=== PATIENT | male | born 1985 | race Caucasian/White ===

== ENCOUNTER 2023-12-10 07:40 | Outpatient (OUT) | payer BC, SELFPAY ==
--- NOTE | 2023-12-10 07:49 | FL_ITS ---
[address] [address] Patient Name: ISIDRA LERMA MRN: [id number] date: 1985 Sex: M [place] [facility] [place] [facility] [facility] Accession/Order Number: [id number] Exam Date: 12/10/2023 08:05 Report Date: 12/10/2023 10:12 At the request of: ARSLAN DAVIS Procedure: FL cineradiography EXAMINATION: FL upper GI w air, FL small bowel, FL cineradiography HISTORY: Hiatal Hernia K44.9 COMPARISON: No relevant comparison available. TECHNIQUE: Upper GI and small bowel series was performed in the usual manner. Standard level fluoroscopic mode of operation utilized. FINDINGS: ESOPHAGUS: Multiples episodes of prominent gastroesophageal reflux extending to the thoracic inlet. No appreciable stricture, abnormal dilation, or mucosal irregularity. STOMACH: No obstruction, mass, or ulceration. Normal motility. DUODENUM: No ulceration or diverticulum. JEJUNUM: Normal motility. No obstruction or visible lesion. ILEUM: Normal motility. No obstruction or visible lesion. OTHER: Negative. FL/FL cineradiography IMPRESSION: 1. Prominent gastroesophageal reflux without appreciable damage to the esophagus, mass, or stricture. 2. Unremarkable stomach. 3. Unremarkable small bowel. Electronically authenticated by: JUJU OWENS Date: 12/10/2023 10:12
--- NOTE | 2023-12-10 07:49 | FL_ITS ---
[address] [address] Patient Name: ISIDRA LERMA MRN: [id number] date: 1985 Sex: M Assigned Patient [place]: [place] Location: [place] Accession/Order Number: [id number] Exam Date: 12/10/2023 08:05 Report Date: 12/10/2023 10:12 At the request of: ARSLAN DAVIS Procedure: FL upper GI w air EXAMINATION: FL upper GI w air, FL small bowel, FL cineradiography HISTORY: Hiatal Hernia K44.9 COMPARISON: No relevant comparison available. TECHNIQUE: Upper GI and small bowel series was performed in the usual manner. Standard level fluoroscopic mode of operation utilized. FINDINGS: ESOPHAGUS: Multiples episodes of prominent gastroesophageal reflux extending to the thoracic inlet. No appreciable stricture, abnormal dilation, or mucosal irregularity. STOMACH: No obstruction, mass, or ulceration. Normal motility. DUODENUM: No ulceration or diverticulum. JEJUNUM: Normal motility. No obstruction or visible lesion. ILEUM: Normal motility. No obstruction or visible lesion. OTHER: Negative. FL/FL upper GI w air IMPRESSION: 1. Prominent gastroesophageal reflux without appreciable damage to the esophagus, mass, or stricture. 2. Unremarkable stomach. 3. Unremarkable small bowel. Electronically authenticated by: JUJU OWENS Date: 12/10/2023 10:12
--- NOTE | 2023-12-10 08:27 | FL_ITS ---
The [address] [address] Patient Name: ISIDRA LERMA MRN: [id number] date: 1985 Sex: M [place]igned [place]: [place]: [place] Accession/Order Number: [id number] Exam Date: 12/10/2023 08:05 Report Date: 12/10/2023 10:12 At the request of: ARSLAN DAVIS Procedure: FL small bowel EXAMINATION: FL upper GI w air, FL small bowel, FL cineradiography HISTORY: Hiatal Hernia K44.9 COMPARISON: No relevant comparison available. TECHNIQUE: Upper GI and small bowel series was performed in the usual manner. Standard level fluoroscopic mode of operation utilized. FINDINGS: ESOPHAGUS: Multiples episodes of prominent gastroesophageal reflux extending to the thoracic inlet. No appreciable stricture, abnormal dilation, or mucosal irregularity. STOMACH: No obstruction, mass, or ulceration. Normal motility. DUODENUM: No ulceration or diverticulum. JEJUNUM: Normal motility. No obstruction or visible lesion. ILEUM: Normal motility. No obstruction or visible lesion. OTHER: Negative. FL/FL small bowel IMPRESSION: 1. Prominent gastroesophageal reflux without appreciable damage to the esophagus, mass, or stricture. 2. Unremarkable stomach. 3. Unremarkable small bowel. Electronically authenticated by: JUJU OWENS Date: 12/10/2023 10:12
== END 2023-12-10 07:41 | disposition home or self-care (01) ==
LOC: FL 07:44
PROVIDERS: PCP Family Medicine; Visit Provider Surgery
DX: K44.9 Diaphragmatic hernia without obstruction or gangrene (principal); R13.10 Dysphagia, unspecified; K21.9 Gastro-esophageal reflux disease without esophagitis
CPT/HCPCS: 74246; 74250; 76120

== ENCOUNTER 2023-12-10 12:28 | Outpatient (OUT) | payer BC, SELFPAY | END 2023-12-10 12:29 | disposition home or self-care (01) | LOC: PST 12:28 | PROVIDERS: PCP Family Medicine; Visit Provider Surgery | DX: Z01.818 Encounter for other preprocedural examination (principal); R13.10 Dysphagia, unspecified ==

== ENCOUNTER 2023-12-18 07:45 | Day surgery (SDC) | payer BC, SELFPAY ==
--- OUTSIDE RECORDS SUMMARY | 2023-12-18 07:48 | XMS_ITS | CCD ---
Author Organization [facility] Care Team Providers Care Application Release Manager Name Role Phone Sterling Marquez Unavailable DR RED ROBLES Primary Care Unavailable FAWWASurjit, VALLE H Admitting Unavailable SABA KATE Consulting Unavailable FAWSHAIKH Josh FAITH Attending Unavailable FAPAPI SEGUNDOIKH H Consulting Unavailable PAPI NAVARROIKH H Attending Unavailable Wilber Canela Consulting Unavailable DR RED ROBLES Primary Care Unavailable FAWWASurjit, VALLE H Admitting Unavailable FARATNA, VALLE H Consulting Unavailable DIETER ALVAREZ Attending Unavailable Red Robles MD Primary Care Provider [phone] RED ROBLES Attending Unavailable ARSLAN DAIVS Attending Unavailable Allergies Allergy Classification Reported Allergen(s) Allergy Type Date of Onset Reaction(s) Facility (2 sources) Codeine Drug Allergy 8 nausea, Nausea And Vomiting [facility] Work Phone: (1 source) Codeine Drug Allergy [facility] Repository Medications Current Medications Medication Drug Class(es) Dates Sig (Normalized) Sig (Original) acetaminophen 325 mg / HYDROcodone bitartrate 5 mg oral tablet (1 source) Opioid Agonist Start: 12-02-2020 take 0.5-1 tablets by mouth once daily as needed HYDROcodone-Acetamin ophen 5-325 MG 1/2 - 1 tablet Orally once daily as needed for 30 days G89.29 Chronic pain Nov, Active cholecalciferol 0.05 mg oral capsule (1 source) Vitamin D take 1 capsule by mouth once daily cholecalciferol (Vitamin D-3) 50 MCG (1999) capsule Take 1 capsule by mouth 1 (one) time each day at the same time. 0 Active ibuprofen 400 mg oral tablet (1 source) Nonsteroidal Anti-inflammatory Drug take 1 tablet by mouth three times daily at mealtime as needed Ibuprofen 400 MG 1 tablet with food or milk as needed Orally Three times a day Active omeprazole 10 mg delayed release oral capsule (1 source) Proton Pump Inhibitor take 1 capsule by mouth once daily Omeprazole 10 MG 1 capsule 30 minutes before morning meal Orally Once a day Active pantoprazole 40 mg delayed release oral tablet (1 source) Proton Pump Inhibitor take 1 tablet by mouth once daily pantoprazole (ProtoNix) 40 MG EC tablet Take 40 mg by mouth 1 (one) time each day at the same time. 0 Active Problems Active Problems Problem Classification Problem Date Documented Date Episodic/Chronic Disorders of lipid metabolism (1 source) Hyperlipidemia; Translations: [Hyperlipidemia, unspecified] Onset: 12-18-2007 02-06-2023 Chronic Nervous system congenital anomalies (6 sources) Neurofibromatosis, unspecified; Translations: [Neurofibromatosis] Onset: 05-30-2009 Chronic Other ear and sense organ disorders (1 source) Bilateral hearing loss; Translations: [Sensorineural hearing loss, unilateral, left ear, with restricted hearing on the contralateral side] Onset: 02-06-2023 02-06-2023 Chronic Other ear and sense organ disorders (1 source) Bilateral tinnitus; Translations: [Tinnitus, bilateral] Onset: 02-06-2023 02-06-2023 Episodic Other nervous system disorders (2 sources) Chronic pain; Translations: [Other chronic pain] Onset: 02-06-2023 Resolved: 02-06-2023 02-06-2023 Chronic Other nervous system disorders (1 source) Other chronic pain Onset: 01-13-2021 Resolved: 01-13-2021 Chronic Other screening for suspected conditions (not mental disorders or infectious disease) (4 sources) Other abnormal findings on diagnostic imaging of central nervous system; Translations: [OTH 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] Onset: 04-03-2022 Episodic Spondylosis; intervertebral disc disorders; other back problems (4 sources) Solitary sacroiliitis; Translations: [Sacroiliitis, not elsewhere classified] Onset: 01-13-2021 Resolved: 01-13-2021 Chronic Sprains and strains (1 source) Unspecified sprain of right wrist, initial encounter; Translations: [Unspecified sprain of right wrist, initial encounter] Onset: 01-13-2023 Episodic Past or Other Problems Problem Classification Problem Date Documented Da te Episodic/Chronic Other aftercare (1 source) Drug therapy finding; Translations: [Other fdc (current) drug therapy] Onset: 02-21-2019 02-06-2023 Episodic Other non-traumatic joint disorders (1 source) Pain in left shoulder Onset: 01-13-2021 Resolved: 01-13-2021 Episodic Spondylosis; intervertebral disc disorders; other back problems (1 source) Low back pain; Translations: [Low back pain] Onset: 12-18-2007 02-06-2023 Episodic Substance-related disorders (1 source) Narcotic drug user; Translations: [Opioid use, unspecified, uncomplicated] Onset: 04-10-2017 02-06-2023 Episodic Results Test Name Value Interpretation Reference Range Facil ity XR ELBOW RIGHT (MIN 3 VIEWS) on 01-13-2023 XR ELBOW RIGHT (MIN 3 VIEWS) EXAM: XR RADIUS ULNA RIGHT (2 VIEWS), XR ELBOW RIGHT (MIN 3 VIEWS), XR WRIST RIGHT (MIN 3 VIEWS) HISTORY: Pain right forearm began today when pushing and pulling on an object. COMPARISON: None. TECHNIQUE: AP and lateral views of the right radius and ulna, 3 views right wrist and 3 views of the left elbow are submitted for review. FINDINGS: Approximately 3 cm soft tissue density is seen protruding about the dorsal proximal right forearm, which may be related to to patient's reported neurofibromatosis, versus less likely hematoma, given history of recent trauma. No obvious acute fracture of the right forearm is seen. Evaluation of the right wrist and elbow also demonstrates no evidence for acute fracture. Joint alignment is normal. No significant soft tissue gas is seen. No radiopaque foreign body is seen within the visualized soft tissues to suggest retained foreign body. IMPRESSION: IMPRESSION: Approximately 3 cm soft tissue density is seen protruding about the dorsal proximal right forearm, which may be related to to patient's reported neurofibromatosis, versus less likely hematoma, given history of recent trauma. No acute fracture seen in the right wrist, elbow and forearm. Interpreted by: Kika Winkler MD Signed by: Kika Winkler MD 01/13/23 Final result Normal [facility] XR RADIUS ULNA RIGHT (2 VIEW S)on 01-13-2023 XR RADIUS ULNA RIGHT (2 VIEWS) EXAM: XR RADIUS ULNA RIGHT (2 VIEWS), XR ELBOW RIGHT (MIN 3 VIEWS), XR WRIST RIGHT (MIN 3 VIEWS) HISTORY: Pain right forearm began today when pushing and pulling on an object. COMPARISON: None. TECHNIQUE: AP and lateral views of the right radius and ulna, 3 views right wrist and 3 views of the left elbow are submitted for review. FINDINGS: Approximately 3 cm soft tissue density is seen protruding about the dorsal proximal right forearm, which may be related to to patient's reported neurofibromatosis, versus less likely hematoma, given history of recent trauma. No obvious acute fracture of the right forearm is seen. Evaluation of the right wrist and elbow also demonstrates no evidence for acute fracture. Joint alignment is normal. No significant soft tissue gas is seen. No radiopaque foreign body is seen within the visualized soft tissues to suggest retained foreign body. IMPRESSION: IMPRESSION: Approximately 3 cm soft tissue density is seen protruding about the dorsal proximal right forearm, which may be related to to patient's reported neurofibromatosis, versus less likely hematoma, given history of recent trauma. No acute fracture seen in the right wrist, elbow and forearm. Interpreted by: Kika Winkler MD Signed by: Kika Winkler MD 01/13/23 Final result Normal [facility] XR WRIST RIGHT (MIN 3 VIEWS) on 01-13-2023 XR WRIST RIGHT (MIN 3 VIEWS) EXAM: XR RADIUS ULNA RIGHT (2 VIEWS), XR ELBOW RIGHT (MIN 3 VIEWS), XR WRIST RIGHT (MIN 3 VIEWS) HISTORY: Pain right forearm began today when pushing and pulling on an object. COMPARISON: None. TECHNIQUE: AP and lateral views of the right radius and ulna, 3 views right wrist and 3 views of the left elbow are submitted for review. FINDINGS: Approximately 3 cm soft tissue density is seen protruding about the dorsal proximal right forearm, which may be related to to patient's reported neurofibromatosis, versus less likely hematoma, given history of recent trauma. No obvious acute fracture of the right forearm is seen. Evaluation of the right wrist and elbow also demonstrates no evidence for acute fracture. Joint alignment is normal. No significant soft tissue gas is seen. No radiopaque foreign body is seen within the visualized soft tissues to suggest retained foreign body. IMPRESSION: IMPRESSION: Approximately 3 cm soft tissue density is seen protruding about the dorsal proximal right forearm, which may be related to to patient's reported neurofibromatosis, versus less likely hematoma, given history of recent trauma. No acute fracture seen in the right wrist, elbow and forearm. Interpreted by: Kika Winkler MD Signed by: Kika Winkler MD 01/13/23 Final result Normal [facility] MRI ORBIT WO W CONon 27-2 023 MRI ORBIT WO W CON Begin Addendum #1 Addendum: Additional MRI images from 03/25/2010 have been uploaded. Addendum has been requested. The enhancing lesion in the anterior medial left frontal lobe was present on 03/25/2010, though has significantly enlarged on the current study on 04/03/2022. The lesion was previously very tiny and measured 1 to 2 mm in the AP and transverse dimension, compared to 8 mm on the current study. The masslike enlargement of the hypothalamus visualized on the current study was not definitively present or only very subtly present on the prior study from 03/25/2010. This is also a change compared to the prior study. Original Report EXAMINATION: MRI ORBIT WO W CON HISTORY: Imaging of central nervous system abnormal. Dizziness. History of neurofibromatosis. COMPARISON: MRI brain 03/27/2022. TECHNIQUE: Multiplanar, multisequence MRI images of the orbits were obtained without and with contrast. FINDINGS: Redemonstration of masslike enlargement of the hypothalamus extending into the posterior aspect of the optic chiasm. Please note that the entirety of the hypothalamus is not included in the [id number]-du-gldy on the coronal images. This masslike enlargement demonstrates isointense signal on T1 and T2, without contrast enhancement. Stable T2 hyperintense focus in the medial left frontal cortex and subcortical region, measuring up to 8 mm in the AP, 6 mm in the transverse, and 8 mm in the craniocaudal dimension with solid enhancement. No mass lesions in the orbits. Extraocular muscles are symmetric. The intraorbital and intracanalicular portions of the optic nerves appear symmetric. No pathologic enhancement in the remaining brain. No hydrocephalus, midline shift, or pathologic extra-axial fluid collections. IMPRESSION: 1. MRI of the orbits were obtained. Please note that the entirety of the optic chiasm and hypothalamus is not included in the sdrqz-ja-aeia on most of the sequences (coronal plane). 2. Redemonstration of masslike enlargement of the hypothalamus. No associated contrast enhancement. 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 3. Stable T2 hyperintense lesion within the anterior medial left frontal lobe. There is evidence for solid enhancement. This is concerning for glioma given history of neurofibromatosis. Normal [facility] MRI BRAIN WO CONon 3 MRI BRAIN WO CON EXAM: MRI BRAIN WO C ON HISTORY: Neurofibromatosis syndrome neurofibromatosis. Some hearing loss, dizziness claustrophobia COMPARISON: None. TECHNIQUE: Multiplanar multisequence MRI was obtained through the head without contrast FINDINGS: Motion artifact. The ventricles, sulci, and remaining CSF containing spaces maintain age-appropriate volume and symmetry. No hydrocephalus. No herniation. The ford matter/white matter differentiation is maintained. No acute infarct or acute intracranial hemorrhage. Prominence of the optic chiasm/the hypothalamus. The 7th and 8th cranial nerves appear normal.. Focal abnormal signal intensity is present within the hippocampi left frontal lobe. The central arterial flow voids and the flow voids of the major dural venous sinuses are maintained, indicative of patency. The pneumatized portions of the skull are clear. Multiple subcutaneous nodules are noted. IMPRESSION: 1. Masslike prominence at the optic chiasm/hypothalamus this is concerning for a glioma given history of neurofibromatosis. Consider follow-up MRI of the orbits with and without contrast. 2. Regions of increased signal intensity no subcutaneous nodules as can be seen with provided history of neurofibromatosis. Electronically authenticated by: DIETER SIDDIQUI Date: 2022-03-28 16:09 Normal [facility] MR head/brain wo/w conon MR head/brain wo/w con [facility] [place] [address] MRI Report Signed Patient: Doc Jonas MR#: [id number] : 1985 Acct:[id number] Age/Sex: 34 / M ADM Date: 06/03/20 Loc: MR Room: Type: [facility] Attending Dr: Victoriano Zapata DO Ordering Provider: Seamus Zapata DO Date of Service: 06/03/20 MR/MR head/brain wo/w con: Q85.01 Copies to: Seamus Zapata DO MRI BRAIN WITHOUT AND WITH INTRAVENOUS CONTRAST CLINICAL DATA: Follow-up neurofibromatosis. Chronic pain. COMPARISON: 03/24/2016 Multiecho, multiplanar imaging of the brain was performed before and after intravenous administration of 17 mL of ProHance. The ventricles are stable in size and position. There is redemonstration of an enhancing nodular area in the parasagittal left frontal lobe anterior to the genu of the corpus callosum (axial postcontrast image 127) measuring 7.5 x 5.6 mm in size. This is similar to the comparison. 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 In addition, there is subtle thickening of the medial temporal lobes, greater on the right with minor increased T2 and FLAIR signal, also stable. There are no developing areas of abnormal signal intensity or enhancement within the supra or infratentorial brain. There is no restricted diffusion to suggest a recent ischemic event. No extra-axial collections or mass effect are seen. No midline abnormalities are noted. The imaged paranasal sinuses are clear. MR/MR head/brain wo/w con IMPRESSION: STABLE MRI FINDINGS COMPATIBLE WITH THE HISTORY OF NEUROFIBROMATOSIS. Impression dictated by: Jackie Nichols M.D.06/09/2020 8:49 AM Dictation Location: [place] [address] Transcribed By: [facility] 06/09/20 0849 Dictated By: Jackie Nichols MD 06/08/202003 Signed By: 06/09/20 0849 [facility] XR pre/post mri xrayon 06-08 XR pre/post mri xray [facility] [place] [address] MRI Report Signed Patient: Doc Jonas MR#: [id number] : 1985 Acct:[id number] Age/Sex: 34 / M ADM Date: 06/03/20 Loc: MR Room: Type: [facility] Attending Dr: Victoriano Zapata DO Ordering Provider: Seamus Zapata DO Date of Service: 06/03/20 MR/MR lumbar spine wo/w con: Q85.01 ([id number]) XR/XR pre/post mri xray: PRE MRI OF THE LUMBAR Copies to: Seamus Zapata DO CLINICAL DATA: Back pain. Follow-up in patient with history of neurofibromatosis PRE-MRI LUMBAR SPINE - 2 views COMPARISON: None AP and lateral standing views were obtained. No acute fractures or displacement are seen. There is no disproportionate disc space narrowing. There is lower thoracic and upper lumbar endplate spurring. There is lower lumbar facet disease. The SI joints are intact. There are no paraspinal soft tissue abnormalities. MR/MR lumbar spine wo/w con IMPRESSION: MILD DEGENERATIVE CHANGES. NO ACUTE PLAIN FILM FINDINGS. MRI LUMBAR SPINE WITHOUT AND WITH INTRAVENOUS CONTRAST COMPARISON: 04/10/2011 Multiecho imaging in the axial and sagittal plane was performed before and after intravenous administration of 17 mL of ProHance. Alignment is maintained on the sagittal sequences. There are no acute compression fractures or bone marrow edema. The conus medullaris is within normal limits for caliber, position and signal intensity. Multiple enlarged nerve roots are visualized within the lumbar region and sacrum, similar to the prior. Appearance is compatible with the known history of neurofibromatosis. At T12-L1 through L2-3, the discs are normal height and signal intensity. No disc bulge or herniation is seen. There is no central or foraminal stenosis. At L3-4, the disc is normal height and signal intensity. There is slight facet disease, greater on the right. There is minor disc bulging toward the neural foramen where there is minimal inferior foraminal encroachment. No central stenosis is noted. At L4-5 there is slight disc desiccation. There is minor annular disc bulging. There is slight increased T2 and STIR signal at the annulus that could be a tear. There is mild facet and some ligamentous hypertrophy. There is subtle thecal sac effacement. There is mild to moderate left inferior foraminal encroachment. At the lumbosacral junction, there is no disc bulge or herniation. There is some facet disease. There is no stenosis. IMPRESSION: CONTINUED DISCOVERTEBRAL DEGENERATIVE CHANGES AT L4-5. NERVE ROOT ENLARGEMENT INVOLVING THE LUMBAR SPINE AND SACRUM COMPATIBLE WITH HISTORY OF NEUROFIBROMATOSIS. APPEARANCE IS SIMILAR TO THE PRIOR. Impression dictated by: Jackie Nichols M.D.06/09/2020 8:51 AM Dictation Location: [place] [address] Transcribed By: [facility] 06/09/2051 Dictated By: Jackie Nichols MD 06/08/202049 Signed By: 06/09/2051 [facility] Coding Summary.on 05-27-2019 Coding Summary. CODING DATE: 020 FINAL [facility] STATUS: Home (Routine DC) PAYOR: [place] ADMIT DX: REASON FOR VISIT DX: Z30.8 Encounter for other contraceptive management FINAL DX: PRINCIPAL: Z30.8 Encounter for other contraceptive management SECONDARY: PYMT PROC APC STAT DESCRIPTION DOCTOR NAME DATE NOTE: The code number assigned matches the documented diagnosis and / or procedure in the patient's chart. However, the narrative phrase printed from the coding software may appear abbreviated, or result in slightly different terminology. Coded By: Candis Le CphT Date Saved: 05/27/2019 01:37 pm Normal [facility] Semen Analysis PostVason Yvette/Transport Prob No Problems Normal [facility] Comment on above: Performed By: #### 2 [id number] #### [facility] [address] [place] [address] Other Comment: Order Added by Discern Expert. Collect. Meth Masturbation Normal [facility] Comment on above: Performed By: #### 2 [id number], [id number] #### [facility] [address] [place] [address] Other Comment: Order Added by Discern Expert. Days Abstained 1 day(s) Low 2-5 [facility] Comment on above: Performed By: #### 2 [id number], [id number] #### [facility] [address] [place] [address] Other Comment: Order Added by Discern Expert. Post Vas Screen No Sperm Seen Normal <=0 [facility] Comment on above: Result Comment: A Co ncentration Technique is used to confirm any semen which is azospermic (no sperm seen). Performed By: #### 2 [id number], [id number] #### [facility] [address] [place] [address] Other Comment: Order Added by Discern Expert. Spec. Container Steril Container Normal [facility] Comment on above: Performed By: #### 2 [id number], [id number] #### [facility] [address] [place] [address] Other Comment: Order Added by Discern Expert. Spec. Temp 22 DegC Normal 20-37 [facility] Comment on above: Performed By: #### 2 [id number], [id number] #### [facility] [address] [place] [address] Other Comment: Order Added by Angel Expert. Sperm Count 0 Million/mL Low >=20 [facility] Comment on above: Result Comment: A Co ncentration Technique is used to evaluate all sperm counts <20 million. Performed By: #### 2 [id number], [id number] #### [facility] [address] [place] [address] Other Comment: Order Added by Discern Expert. Sperm Morphon 05-26-2019 Sperm Morph No sperm identified (A concentration technique is used to evaluate this specimen). Inflammatory cells present. [facility] Comment on above: Order Comment: Order Added by Angel Expert. Performed By: #### 2 [id number], [id number] #### [facility] [address] [place] [address] Other Comment: Order Added by Discern Expert. Sperm Morph No sperm identified (A concentration technique is used to evaluate this specimen). Inflammatory cells present. ICD10 Z30.9 [facility] Comment on above: Order Comment: Order Added by Angel Expert. Performed By: #### 2 [id number], [id number] #### [facility] [address] [place] [address] Other Comment: Order Added by Angel Expert. CNOVon 05-13-2019 CNOV Office Visit (NEPNMN ) DOC JONAS ([id number]) 1985 M Date Time Provider Department 05/13/19 2:50 PM Natalee ZELAYA During your visit today, we recorded the following information about you: Pulse Blood pressure Weight Height 78/minute 135/67 71.8 kg 1.524 m Luis Zelaya MD 05/13/2019 3:38 PM Signed PEDIATRIC NEUROLOGY FOLLOW-UP Dear Dr. Ruddy Tejada, I had the pleasure of evaluating Doc Jonas in the pediatric neurology clinic on 05/13/2019 in for the problem of Neurofibromatosis type 1. My final impression and recommendations will be transmitted to the requesting physician by way of shared electronic medical record or letter via U.S. Mail. Doctor/Date: Luis Zelaya MD / 05/13/2019 Date of last visit: 11/12/2018 Age: [age] year old : 1985 Accompanied by: and daughter Immunizations: Not up to date - does not vaccinate Current Medications: Current Outpatient Medications Medication Sig - HYDROcodone-acetaminoph en (NORCO) 5-325 mg per tablet Take 1 tablet by mouth as needed. No current facility-administered medications for this visit. Medication side effects: None Interval History: Since last visit No hospitalizations, operations, or significant illnesses/injuries. 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 Has not seen a brasswind instrument repairer or had an echo. Has not seen slackline operator in a while; last time in 2010. He reports numbness in hands and feet. Also notes lower back pain for which he occasionally takes [employer]. Pain is worsened on prolonged sitting or standing. 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 MRI spine showed multiple tumors. Patient also has multiple qehm-wv-ucfz hawley and neurofibromas.No problems using his limbs or walking. Denies bowel/bladder or sexual issues. Neurofibromas are not growing rapidly, hurting spontaneously or getting hard. Got 2 removed a few months ago and wants one on his back removed too (pain on light touch). Headaches: Occur almost daily. Takes Motrin for them. New Neurological Symptoms: None. REVIEW OF SYSTEMS: Skin: multiple ekwd-oi-kwwa hawley and neurofibromas (torso and scalp) Eyes: Lisch nodules Ears: hearing problems of last visit improved after ear cleaning No complaints pertaining to respiratory, cardiovascular, gastrointestinal, genitourinary, musculoskeletal, behavior/affect. SOCIAL HISTORY: No change GENERAL EXAMINATION: BP 135/67 Pulse 78 Ht 152.4 cm (5') Wt 71.8 kg (158 lb 3.2 oz) BMI 30.90 kg/m? General: Within normal limits, alert, and in no apparent distress Ortho: Within normal limits Skin: Within normal limits Ears: Decreased hearing on left side Eyes: PERRL Other: Not Applicable NEUROLOGICAL EXAMINATION: Gait: Within normal limits Affect: Within normal limits Speech: Within normal limits Cranial Nerves: Within normal limits Motor: Within normal limits Cerebellar: Within normal limits PREVIOUS IMAGING: To be reviewed. DIAGNOSIS: Neurofibromatosis type 1: back pain, numbness hands/feet, jwjw-tc-irod hawley, neurofibromas Headaches: daily Care plan, management, prognosis, discussed for 15 minutes. Plan: 1. Review prior imaging and discuss with multidisciplinary team. Laboratory Test: None Radiology: None Return Visit: 6 months Total time including review of medical records, history, physical examination, counseling, and coordination of care took 25 minutes of which > 50% was spent in counseling, coordination, and discussion of the plan of care documented above Luis Mccallibe Attestation: By signing my name below, IPedro, attest that this documentation has been prepared under the direction and in the presence of Luis Zelaya MD. Electronically Signed: Mikel Davis. May 13, 2019 2:35 PM. Provider Attestation: ILuis MD, personally performed the services described in this documentation. All medical record entries made by the scribe were at my direction and in my presence. I have reviewed the chart and discharge instructions (if applicable) and agree that the record reflects my personal performance and is accurate and complete. Electronically Signed: Luis Zelaya MD. May 13, 2019 3:37 PM Referring Provider: SELF [[id number]] Allergies As of Date: 05/13/2019 Noted Allergy Reaction ACETAMINOPHEN-CODEINE 06/04/2018 16 - Unknown CODEINE 05/31/2018 16 - Unknown Comments: States nausea Date Reviewed: 05/13/2019 Reviewed by: Mehnaz Davila Ma - Fully Assessed Reason for Visit: Neurofibromatosis [843] Follow Up [171] Reason For Visit History Recorded Primary Visit Diagnosis:Neurofibromat osis, type 1 (von Recklinghausen's disease) (HCC) [Q85.01] Prescriptions as of 05/13/2019 Sig: HYDROCODONE 5 MG-ACETAMINOPHE* Take 1 tablet by mouth as nee* Problem List As Of Date: 05/13/2019 (None) Encounter Status:Closed by Natalee ZELAYA MD on 05/13/19 Normal [facility] PROGRESSon 05-13-2019 PROGRESS HNO ID: [id number] Author: Natalee Zelaya Service: ? Author Type: Physician Type: Progress Notes Filed: 05/13/2019 3:38 PM Note Text: PEDIATRIC NEUROLOGY FOLLOW-UP Dear Dr. Ruddy Tejada, I had the pleasure of evaluating Doc Jonas in the pediatric neurology clinic on 05/13/2019 in for the problem of Neurofibromatosis type 1. My final impression and recommendations will be transmitted to the requesting physician by way of shared electronic medical record or letter via U.S. Mail. Doctor/Date: Luis Zelaya MD / 05/13/2019 Date of last visit: 11/12/2018 Age: [age] year old : 1985 Accompanied by: and daughter Immunizations: Not up to date - does not vaccinate Current Medications: Current Outpatient Medications Medication Sig - HYDROcodone-acetaminoph en (NORCO) 5-325 mg per tablet Take 1 tablet by mouth as needed. No current facility-administered medications for this visit. Medication side effects: None Interval History: Since last visit No hospitalizations, operations, or significant illnesses/injuries. 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 Has not seen a brasswind instrument repairer or had an echo. Has not seen slackline operator in a while; last time in 2010. He reports numbness in hands and feet. Also notes lower back pain for which he occasionally takes [employer]. Pain is worsened on prolonged sitting or standing. 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 MRI spine showed multiple tumors. Patient also has multiple qglo-hi-gqew hawley and neurofibromas.No problems using his limbs or walking. Denies bowel/bladder or sexual issues. Neurofibromas are not growing rapidly, hurting spontaneously or getting hard. Got 2 removed a few months ago and wants one on his back removed too (pain on light touch). Headaches: Occur almost daily. Takes Motrin for them. New Neurological Symptoms: None. REVIEW OF SYSTEMS: Skin: multiple fuoz-oq-puci hawley and neurofibromas (torso and scalp) Eyes: Lisch nodules Ears: hearing problems of last visit improved after ear cleaning No complaints pertaining to respiratory, cardiovascular, gastrointestinal, genitourinary, musculoskeletal, behavior/affect. SOCIAL HISTORY: No change GENERAL EXAMINATION: BP 135/67 Pulse 78 Ht 152.4 cm (5') Wt 71.8 kg (158 lb 3.2 oz) BMI 30.90 kg/m? General: Within normal limits, alert, and in no apparent distress Ortho: Within normal limits Skin: Within normal limits Ears: Decreased hearing on left side Eyes: PERRL Other: Not Applicable NEUROLOGICAL EXAMINATION: Gait: Within normal limits Affect: Within normal limits Speech: Within normal limits Cranial Nerves: Within normal limits Motor: Within normal limits Cerebellar: Within normal limits PREVIOUS IMAGING: To be reviewed. DIAGNOSIS: Neurofibromatosis type 1: back pain, numbness hands/feet, ctmy-gb-hkhe hawley, neurofibromas Headaches: daily Care plan, management, prognosis, discussed for 15 minutes. Plan: 1. Review prior imaging and discuss with multidisciplinary team. Laboratory Test: None Radiology: None Return Visit: 6 months Total time including review of medical records, history, physical examination, counseling, and coordination of care took 25 minutes of which > 50% was spent in counseling, coordination, and discussion of the plan of care documented above Luis Mccallibe Attestation: By signing my name below, Pedro Benoit, attest that this documentation has been prepared under the direction and in the presence of Luis Zelaya MD. Electronically Signed: Mikel Davis. May 13, 2019 2:35 PM. Provider Attestation: Luis Benoit MD, personally performed the services described in this documentation. All medical record entries made by the scribe were at my direction and in my presence. I have reviewed the chart and discharge instructions (if applicable) and agree that the record reflects my personal performance and is accurate and complete. Electronically Signed: Luis Zelaya MD. May 13, 2019 3:37 PM Normal [facility] CNOVon 11-12-2018 CNOV Office Visit (NEPNMN ) DOC JONAS ([id number]) 1985 M Date Time Provider Department 11/12/18 2:50 PM Natalee ZELAYA NEPNMN During your visit today, we recorded the following information about you: Pulse Blood pressure Weight Height 77/minute 134/84 81.6 kg 1.575 m Luis Zelaya MD 11/12/2018 3:12 PM Signed PEDIATRIC NEUROLOGY FOLLOW-UP Dear Dr. Christian Benoit had the pleasure of evaluating Doc Jonas in the pediatric neurology clinic on 11/12/2018 in for the problem of n.f.-1. My final impression and recommendations will be transmitted to the requesting physician by way of shared electronic medical record or letter via U.S. Mail. Doctor/Date: Luis Zelaya MD / 11/12/2018 Date of last visit: 05/28 Age: [age] year old : 1985 Immunizations: none recently Current Medications: Current Outpatient Medications: HYDROcodone-acetaminoph en (NORCO) 5-325 mg per tablet Take 1 tablet by mouth as needed. No current facility-administered medications for this visit. Medication side effects: None uses it once/wk for back painInterval History: Since last visit None. 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 needs eye doctor REVIEW OF SYSTEMS: No complaints pertaining to , ENT, respiratory, cardiovascular, gastrointestinal, genitourinary, musculoskeletal, behavior/affect. left ear losing hearing, all else ok SOCIAL HISTORY: No change PRESENT ILLNESS: NF: calm, no change. n.f.----has a lot, getting more.. occas hunt, none c n/v, to see eye, no bcardiology yet, no b/b. GENERAL EXAMINATION: General: Within normal limits, alert, and in no apparent distress Ortho: Within normal limits Skin:loaded with n.f.Other: Not Applicable NEUROLOGICAL EXAMINATION: Gait: Within normal limits Affect: Within normal limits Speech: Within normal limits Cranial Nerves: dec hearing on leftMotor: Within normal limits Cerebellar: Within normal limits DIAGNOSIS: n.f.-1, hearing loss on left needs to see eye and card/echo Care plan, management, prognosis, discussed for 25 minutes. Plan: see eye, ent, card. Laboratory Test: None Radiology: None Return Visit: 6 months Total time including review of medical records, history, physical examination, counseling, and coordination of care took 30 minutes of which > 50% was spent in counseling, coordination, and discussion of the plan of care documented above Luis Zelaya MD Referring Provider: SELF [200] Allergies As of Date: 11/12/2018 Noted Allergy Reaction ACETAMINOPHEN-CODEINE 06/04/2018 16 - Unknown CODEINE 05/31/2018 16 - Unknown Comments: States nausea Date Reviewed: 11/12/2018 Reviewed by: Loraine Mccollum Ma - Fully Assessed Reason for Visit: Established Patient [175] Primary Visit Diagnosis:Neurofibromat osis, type 1 (von Recklinghausen's disease) ([facility]) [Q85.01] Prescriptions as of 11/12/2018 Sig: HYDROCODONE 5 MG-ACETAMINOPHE* Take 1 tablet by mouth as nee* Problem List As Of Date: 11/12/2018 (None) Disposition: Return in about 6 months (around 05/13/2019). Follow-up and Disposition History Recorded Encounter Status:Closed by Natalee ZELAYA MD on 11/12/18 [facility] PROGRESSon 11-12-2018 PROGRESS HNO ID: [id number] Author: Natalee Zelaya Service: ? Author Type: Physician Type: Progress Notes Filed: 11/12/2018 3:12 PM Note Text: PEDIATRIC NEUROLOGY FOLLOW-UP Dear Dr. Christian Benoit had the pleasure of evaluating Doc Jonas in the pediatric neurology clinic on 11/12/2018 in for the problem of n.f.-1. My final impression and recommendations will be transmitted to the requesting physician by way of shared electronic medical record or letter via U.S. Mail. Doctor/Date: Luis Zelaya MD / 11/12/2018 Date of last visit: 05/28 Age: [age] year old : 1985 Immunizations: none recently Current Medications: Current Outpatient Medications: HYDROcodone-acetaminoph en (NORCO) 5-325 mg per tablet Take 1 tablet by mouth as needed. No current facility-administered medications for this visit. Medication side effects: None uses it once/wk for back painInterval History: Since last visit None. 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 needs eye doctor REVIEW OF SYSTEMS: No complaints pertaining to , ENT, respiratory, cardiovascular, gastrointestinal, genitourinary, musculoskeletal, behavior/affect. left ear losing hearing, all else ok SOCIAL HISTORY: No change PRESENT ILLNESS: NF: calm, no change. n.f.----has a lot, getting more.. occas hunt, none c n/v, to see eye, no bcardiology yet, no b/b. GENERAL EXAMINATION: General: Within normal limits, alert, and in no apparent distress Ortho: Within normal limits Skin:loaded with n.f.Other: Not Applicable NEUROLOGICAL EXAMINATION: Gait: Within normal limits Affect: Within normal limits Speech: Within normal limits Cranial Nerves: dec hearing on leftMotor: Within normal limits Cerebellar: Within normal limits DIAGNOSIS: n.f.-1, hearing loss on left needs to see eye and card/echo Care plan, management, prognosis, discussed for 25 minutes. Plan: see eye, ent, card. Laboratory Test: None Radiology: None Return Visit: 6 months Total time including review of medical records, history, physical examination, counseling, and coordination of care took 30 minutes of which > 50% was spent in counseling, coordination, and discussion of the plan of care documented above Luis Zelaya MD [facility] CNOVon 06-04-2018 CNOV Office Visit (NEPNMN ) DOC JONAS ([id number]) 1985 M Date Time Provider Department 06/04/18 1:00 PM Natalee ZELAYA During your visit today, we recorded the following information about you: Pulse Blood pressure Weight Height 74/minute 134/71 80.7 kg 1.524 m AAdelaide Zelaya MD 06/04/2018 2:[address] Benoit had the pleasure of evaluating Doc Jonas in the pediatric neurology clinic on 06/04/2018 in consultation for the problem of n.f.-1. My final impression and recommendations will be transmitted to the requesting physician by way of shared electronic medical record or letter via U.S. Mail. Doc is a 32 year old right-handed male. Although his history is well known to you, please allow us to reiterate it for the purpose of our medical records. Doc Jonas is accompanied to today's clinic visit by his patient and spouse. / Labor AND Delivery: normal Growth AND Development: normal Immunizations: they dont vaccinate Allergies: ALLERGIES Allergen Reactions - Acetaminophen-Codei* Unknown - Codeine Unknown States nausea Operations: No Hospitalizations/SI: Yes: mersa---8 yrs ago Current Medications: Current Outpatient Medications: HYDROcodone-acetaminoph en (NORCO) 5-325 mg per tablet Take 1 tablet by mouth. No current facility-administered medications for this visit. Medication side effects: None on no medsFamily History: Parental status: pt is 4 children, one has n.f. parents do not have n.f. School history: -School Absences due to headache past termna -School Grade: grad hs -Grades: na -Academic Performance: average -Attention Disorders: LD () -Behavior School: na -Behavior Home : No problems Past Medical History -Head Injury: Concussion: -Lost consciousness. : at work, loc, hit head, out briefly, , fainted a second time several hrs later , did ct scan -Other Medical History: no sz, no prev syncope Review of Systems: General: Normal sleep, appetite and activity Eyes: No-last eye exam 2008Ears: No Respiratory: No Cardiovascular: No Gastrointestinal: No Urinary: No Menses: N/A Musculoskeletal: No Skin: Yes: calm Neurological: See Headache Status Headache Description-occas hunt, not signif1. 469129} edx was made at age 22, no hunt, no eye issues, no hearing issues. he has neuropathy, poss due to n.f.--occas numbness. no b/b, no calm. lots of neurofibromas. . no plexiform nf. none are growing rapid, none cause pain, nonre hard. PREVIOUS TESTING: had mri and ct 2016, 2018 Clinical Examination: Vital Signs: BP 134/71 Pulse 74 Ht 152.4 cm (5') Wt 80.7 kg (178 lb) BMI 34.76 kg/m? Head Circumference: 59.5cm On general physical examination, Doc is a 32 year old well-appearing and undistressed male. He is non-dysmorphic. There are no neurocutaneous stigmata. Auscultation of the heart and lungs is within normal limits. There is no hepatosplenomegaly. There are no orthopedic deformities or scoliosis. he has a few calm, his body is covered with neurofibromas. left buttck is larger than right. On neurological examination, mental status is normal. Cranial nerves II - XII are intact, with a normal fundoscopic examination, normal visual sanchez, and normal hearing. On motor examination, there is normal muscle bulk and tone. Strength is normal in both upper and lower extremities, both proximally and distally. Sensory examination is grossly intact. On cerebellar examination, there is no dysmetria. Romberg is negative and tandem gait well performed. Gait is within normal limits. Reflexes are symmetrical and equal in both upper and lower extremities. Plantar response is flexor bilaterally. Impression: In summary, Doc is a 32 year old young man with n.f.-1.. His neurological examination is entirely normal and non-focal apart from thousands of n.f.. Doc?s constellation of neurological symptoms and signs is suggestive of n.f.-1. he has an abn scan.. Plan: The above was extensively discussed with the family and Headache Information was shared. Diet: Remove food additives including cafffiene, chocolate, luncheon meats (nitirites/nitrates), aged cheese, and any food containing MSG. Lifestye Changes: -8 hrs sleep per night -4-6 glasses of water per day -No missed meals -No missed school -OTC no more than two days per week -Exercise regimen as discussed Additional recommended testing: Eye exam cardiology, Based on our findings, we would recommend rescue medication no more than twice weekly and suggested the following preventive medications. -Rescue medications: None -Preventive medications: None I would like to see Doc in Clinic for a follow-up visit in 6 months. Thank you for the opportunity to participate in Doc?s care. If we can answer any additional questions, we would be pleased to do so. Total time including review of medical records, history, physical examination, counseling, and coordination of care took 60 minutes of which > 50% was spent in counseling, coordination, and discussion of the plan of care documented above Sincerely, Luis Zelaya MD Staff Pediatric Neurologist Referring Provider: SELF [200] Allergies As of Date: 06/04/2018 Noted Allergy Reaction ACETAMINOPHEN-CODEINE 06/04/2018 16 - Unknown CODEINE 05/31/2018 16 - Unknown Comments: States nausea Date Reviewed: 06/04/2018 Reviewed by: Maico Cody - Fully Assessed Reason for Visit: New Patient [172] Primary Visit Diagnosis:Neurofibromat osis, type 1 (von Recklinghausen's disease) ([facility]) [Q85.01] Other Visit Diagnosis:Multiple neurofibromas in neurofibromatosis ([facility]) [Q85.09] Order(s):CONSULT TO OPHTHALMOLOGY [9024] Order #: [id number]: 1 CONSULT TO PEDS CARDIOLOGY [808537] Order #: [id number]: 1 Prescriptions as of 06/04/2018 Sig: HYDROCODONE 5 MG-ACETAMINOPHE* Take 1 tablet by mouth. Problem List As Of Date: 06/04/2018 (None) Disposition: Return in about 6 months (around 12/05/2018). Follow-up and Disposition History Recorded Encounter Status:Closed by Natalee ZELAYA MD on 06/04/18 [facility] PROGRESSon 06-04-2018 PROGRESS HNO ID: [id number] Author: Natalee Zelaya Service: ? Author Type: Physician Type: Progress Notes Filed: 06/04/2018 2:04 PM Note Text: Dear Dr. Benoit had the pleasure of evaluating Doc Jonas in the pediatric neurology clinic on 06/04/2018 in consultation for the problem of n.f.-1. My final impression and recommendations will be transmitted to the requesting physician by way of shared electronic medical record or letter via U.S. Mail. Doc is a 32 year old right-handed male. Although his history is well known to you, please allow us to reiterate it for the purpose of our medical records. Doc Jonas is accompanied to today's clinic visit by his patient and spouse. / Labor AND Delivery: normal Growth AND Development: normal Immunizations: they dont vaccinate Allergies: ALLERGIES Allergen Reactions - Acetaminophen-Codei* Unknown - Codeine Unknown States nausea Operations: No Hospitalizations/SI: Yes: mersa---8 yrs ago Current Medications: Current Outpatient Medications: HYDROcodone-acetaminoph en (NORCO) 5-325 mg per tablet Take 1 tablet by mouth. No current facility-administered medications for this visit. Medication side effects: None on no medsFamily History: Parental status: pt is 4 children, one has n.f. parents do not have n.f. School history: -School Absences due to headache past termna -School Grade: grad hs -Grades: na -Academic Performance: average -Attention Disorders: LD () -Behavior School: na -Behavior Home : No problems Past Medical History -Head Injury: Concussion: -Lost consciousness. : at work, loc, hit head, out briefly, , fainted a second time several hrs later , did ct scan -Other Medical History: no sz, no prev syncope Review of Systems: General: Normal sleep, appetite and activity Eyes: No-last eye exam 2008Ears: No Respiratory: No Cardiovascular: No Gastrointestinal: No Urinary: No Menses: N/A Musculoskeletal: No Skin: Yes: calm Neurological: See Headache Status Headache Description-occas hunt, not signif1. 532314} edx was made at age 22, no hunt, no eye issues, no hearing issues. he has neuropathy, poss due to n.f.--occas numbness. no b/b, no calm. lots of neurofibromas. . no plexiform nf. none are growing rapid, none cause pain, nonre hard. PREVIOUS TESTING: had mri and ct 2016, 2017 Clinical Examination: Vital Signs: BP 134/71 Pulse 74 Ht 152.4 cm (5') Wt 80.7 kg (178 lb) BMI 34.76 kg/m? Head Circumference: 59.5cm On general physical examination, Doc is a 32 year old well-appearing and undistressed male. He is non-dysmorphic. There are no neurocutaneous stigmata. Auscultation of the heart and lungs is within normal limits. There is no hepatosplenomegaly. There are no orthopedic deformities or scoliosis. he has a few calm, his body is covered with neurofibromas. left buttck is larger than right. On neurological examination, mental status is normal. Cranial nerves II - XII are intact, with a normal fundoscopic examination, normal visual sanchez, and normal hearing. On motor examination, there is normal muscle bulk and tone. Strength is normal in both upper and lower extremities, both proximally and distally. Sensory examination is grossly intact. On cerebellar examination, there is no dysmetria. Romberg is negative and tandem gait well performed. Gait is within normal limits. Reflexes are symmetrical and equal in both upper and lower extremities. Plantar response is flexor bilaterally. Impression: In summary, Doc is a 32 year old young man with n.f.-1.. His neurological examination is entirely normal and non-focal apart from thousands of n.f.. Doc?s constellation of neurological symptoms and signs is suggestive of n.f.-1. he has an abn scan.. Plan: The above was extensively discussed with the family and Headache Information was shared. Diet: Remove food additives including cafffiene, chocolate, luncheon meats (nitirites/nitrates), aged cheese, and any food containing MSG. Lifestye Changes: -8 hrs sleep per night -4-6 glasses of water per day -No missed meals -No missed school -OTC no more than two days per week -Exercise regimen as discussed Additional recommended testing: Eye exam cardiology, Based on our findings, we would recommend rescue medication no more than twice weekly and suggested the following preventive medications. -Rescue medications: None -Preventive medications: None I would like to see Doc in Clinic for a follow-up visit in 6 months. Thank you for the opportunity to participate in Doc?s care. If we can answer any additional questions, we would be pleased to do so. Total time including review of medical records, history, physical examination, counseling, and coordination of care took 60 minutes of which > 50% was spent in counseling, coordination, and discussion of the plan of care documented above Sincerely, Luis Zelaya MD Staff Pediatric Neurologist Normal [facility] Vital Signs Date Time Vital Sign Value Performing Clinician [facility] 01-13-2021 15:00-0400 Body weight 82.83 kg Sterling Marquez Other [facility] Other 01-13-2021 15:00-0400 Diastolic blood pressure 86 mm[Hg] Sterling Marquez Other [facility] Other 01-13-2021 15:00-0400 SaO2% (BldA) [Mass fraction] 98 % Sterling Marquez Other [facility] Other 01-13-2021 15:00-0400 Systolic blood pressure 130 mm[Hg] Sterling Marquez Other [facility] Other Encounters Encounter Date Encounter Type Care Provider Facility Start: 11-26-2023 End: 11-26-2023 ambulatory ARSLAN DAVIS Not Available Start: 11-19-2023 End: 11-19-2023 ambulatory RED ROBLES Not Available Start: 04-16-2023 Chart abstracting Tawana rodriguez MD Work Phone: [facility] Start: 01-13-2023 End: 01-13-2023 Emergency department patient visit [place] Natalee [facility] Start: 04-03-2022 End: 04-04-2022 ambulatory SHAIKH Josh NAVARRO Facility:[facility] Start: 03-27-2022 End: 03-28-[address] RED ROBLES Facility:[facility] Start: 01-13-2021 End: 01-13-2021 ambulatory Sterling Marquez Other [facility] [employer] Other Start: 01-13-2021 Office outpatient vi sit 25 minutes Sterling Marquez [facility] Plan of Treatment Date Care Activity Detail Author Start: 04-16-2023 End: 04-16-2023 Clinical Support [facility] Start: 11-10-2022 Influenza vaccination Influenza Vacc ine (#1) [facility] Payers Date Payer Category Payer Unknown [id number] 2018 Unknown BCBS BCBS xxxxxx [id number] 2018-Present [phone] [address] [place] [address] [id number] 1985 Unknown [id number] 1985 Unknown [id number] 1985 Unknown [id number] 1985 Unknown [id number] [id number] 1985 Unknown [id number] [id number] Social History Date Type Detail Facility Start: 02-12-2023 [facility] Other Start: 02-06-2023 Tobacco smoking status MDIS Never smoked tobacco [facility] Start: 02-06-2023 Tobacco use and exposure Smokeless tobacco non-user [facility] Start: 02-12-2023 Alcohol intake Lifetime non-d rodney (finding) [facility] Start: 02-12-2023 History of Social function [facility] Start: 02-10-2023 Alcohol Comment caffeine intak e: 1-2 cups per day [facility] Start: 1985 Sex Assigned At Not on file [facility] Evaluation note 01-13-2021 Note Date & Type Note Facility 01-13-2021 Evaluation note Encounter Date Diagnosis Assessment Notes Jan, Lumbosacral spondylosis (ICD-10 - M47.817) 35 year old male here for follow up status post lumbar facet medial branch nerve block bilaterally at the L2, L3 and L4 levels, as well as the L5 dorsal ramus under fluoroscopic guidance. Patient reports 70-80% pain relief and increased function for one week following procedure. He voices complaints of mild residual low back pain today as expected. He also voices complaints of left shoulder pain. Anatomy of spine discussed in detail with patient in regards to patients condition. Patient is a candidate for a confirmatory bilateral lumbar facet medial branch nerve block under fluoroscopic guidance. Risks and benefits of procedure explained to patient; patient verbalizes understanding. Jan, Left shoulder pain (ICD-10 - M25.512) Recent MRI of the left shoulder shows mild arthritis. If his pain persists, we can consider proceeding with a shoulder & AC joint injection under fluoroscopic guidance. Jan, Chronic pain (ICD-10 - G89.29) Continue medications as prescribed [facility] Other History general Narrative - Reported Note Date & Type Note Facility History general Narrative - Reported Type Medical History neurofibromatosis type 1 Medical History neuropathy bue and ble [facility] Other Summary Purpose Family History No Family History Records FoundNo Family History Records FoundNo Family History Records FoundNo Family History Records FoundNo Family History Records FoundNo Family History Records Found Advance Directives No Advanced Directives Records FoundNo Advanced Directives Records FoundNo Advanced Directives Records FoundNo Advanced Directives Records FoundNo Advanced Directives Records FoundNo Advanced Directives Records Found Additional Source Comments (unrecognized sect ion and content) No Status Records FoundNo Status Records FoundNo Status Records FoundNo Status Records FoundNo Status Records FoundNo Status Records Found INFORMATION SOURCE (unrecogn ized section and content) DATE CREATED AUTHOR 05/13/2019 [facility] DATE CREATED AUTHOR AUTHOR'S ORGANIZ ATION 04/23/2020 [facility] DATE CREATED AUTHOR AUTHOR'S ORGANIZ ATION 03/20/2021 [facility] DATE CREATED AUTHOR AUTHOR'S ORGANIZ ATION 04/08/2022 [facility] DATE CREATED AUTHOR AUTHOR'S ORGANIZ ATION 01/14/2023 [facility] DATE CREATED AUTHOR AUTHOR'S ORGANIZ ATION 11/27/2023 [facility] EPIC REASON FOR VISIT (unrecogniz ed section and content) FOLLOW UP AFTER RALF LUMBAR M BB Care Teams (unrecognized sec tion and content) Application Release Manager Relationship Specialty Start Date End Date Red Robles MD PCP - General Family Medicine 02/12/23 FOR RECORDS PERTAINING TO PATIENTS WHO ARE OR HAVE BEEN ENROLLED IN A CHEMICAL DEPENDENCY/SUBSTANCEABUSE PROGRAM, SOME INFORMATION MAY BE OMITTED. This clinical summary was aggregated from multiple sources. Caution should be exercised in using it in the provision of clinical care. This summary normalizes information from multiple sources, and as a consequence, information in this document may materially change the coding, format and clinical context of patient data. In addition, data may be omitted in some cases. CLINICAL DECISIONS SHOULD BE BASED ON THE PRIMARY CLINICAL RECORDS. [facility]. provides no warranty or guarantee of the accuracy or completeness of information in this document.
[2023-12-18 07:50] VITALS: BP 165/101; PULSE 70; TEMP 36.1; O2SAT 98; BMI 38.1
[2023-12-18] MEDS: 0.9 % SODIUM CHLORIDE 500 ML 50 ML IV (08:16)
[2023-12-18 09:11] VITALS: BP 119/62; PULSE 75; TEMP 36.3; O2SAT 95
[2023-12-18 09:14] VITALS: BP 128/84; PULSE 73; O2SAT 97
[2023-12-18 09:29] VITALS: BP 129/87; PULSE 67; O2SAT 98
--- NOTE | 2023-12-18 15:21 | W.PM.PROCNOT ---
Date of procedure: 12/18/23 Pre-op diagnosis: gerd, dysphagia Post-op diagnosis: other (small hiatal hernia ) Procedure: EGD with biopsy Preoperative Diagnosis:? GERD, dysphagia Post-operative Diagnosis: small hiatal hernia Procedure: Esophagogastroduodenoscopy with biopsy ANES:? MAC Complications:? None EBL:? None Finding: small hiatal hernia PROCEDURE: The patient was taken to the endoscopy suite and under monitored conditions was given adequate anesthesia until the patient was sedated.? The endoscope was passed easily into the oropharynx and into the upper esophagus.? The esophagus was completely normal and the z-line was at 34cm.? The scope entered the stomach easily which distended well.? The scope was passed through the pylorus and the duodenal bulb and 1st portion of the duodenum were within normal limits.? No abnormalities identified.? The body of the stomach was carefully inspected and there were no abnormalities identified.??? The scope was retroflexed and no there was evidence of a small hiatal hernia.? There was no gastritis in the antrum of the stomach but patient has Hx of significant reflux. Biopsies were taken in the antrum for H. Pylori testing.? The patient tolerated the procedure well and was transferred to the PACU. Anesthesia: MAC Surgeon: Bayron Maurice Estimated blood loss (mL): 1 Pathology: other (h pylori biopsy ) Condition: stable Disposition: PACU
== END 2023-12-18 09:38 | disposition home or self-care (01) ==
PROVIDERS: PCP Family Medicine; Visit Provider Surgery
PROC: (CPT 00731; principal; 2023-12-18 08:45)
DX: R13.10 Dysphagia, unspecified (principal); K29.50 Unspecified chronic gastritis without bleeding; K44.9 Diaphragmatic hernia without obstruction or gangrene; K21.9 Gastro-esophageal reflux disease without esophagitis; Z98.52 Vasectomy status; E78.5 Hyperlipidemia, unspecified; I10 Essential (primary) hypertension
CPT/HCPCS: 00731; 43239; J2704

== ENCOUNTER 2023-12-26 10:07 | Outpatient (OUT) | payer BC, SELFPAY ==
--- OUTSIDE RECORDS SUMMARY | 2023-12-26 10:11 | XMS_ITS | CCD ---
Author Organization [facility] Care Team Providers Care Bottling Line Attendant Name Role Phone Sterling Marquez Unavailable DR RED ROBLES Primary Care Unavailable FAWWASurjit, VALLE H Admitting Unavailable SABA KATE Consulting Unavailable FAWWAD VALLE H Attending Unavailable FAWWASurjit, VALLE H Consulting Unavailable FARATNA VALLE H Attending Unavailable Wilber Canela Consulting Unavailable DR RED ROBLES Primary Care Unavailable FAWWAD, VALLE H Admitting Unavailable FAWWAD, VALLE H Consulting Unavailable DIETER ALVAREZ Attending Unavailable Red Robles MD Primary Care Provider Arslan Maurice Attending Unavailable Arslan Maurice Admitting Unavailable DO Arslan Maurice Attending Provider RED ROBLES Attending Unavailable ARSLAN MAURICE Attending Unavailable RED ROBLES Attending Unavailable Allergies Allergy Classification Reported Allergen(s) Allergy Type Date of Onset Reaction(s) Facility (2 sources) Codeine Drug Allergy 8 nausea, Nausea And Vomiting [facility] Work Phone: (1 source) Codeine Drug Allergy [facility] Repository (1 source) Codeine Drug Allergy 3 [facility] Repository Medications Current Medications Medication Drug Class(es) Dates Sig (Normalized) Sig (Original) acetaminophen 325 mg / HYDROcodone bitartrate 5 mg oral tablet (1 source) Opioid Agonist Start: 12-02-2020 take 0.5-1 tablets by mouth once daily as needed HYDROcodone-Acetamin ophen 5-325 MG 1/2 - 1 tablet Orally once daily as needed for 30 days G89.29 Chronic pain Nov, Active atorvastatin 40 mg oral tablet (1 source) HMG-CoA Reductase Inhibitor Start: 01-25-2021 Atorvastatin Active MG TABLET January 25, 2021 1:00am cholecalciferol 0.05 mg oral tablet (2 sources) Vitamin D Start: 01-25-2021 Cholecalciferol (Vitamin D3) Active TABLET January 25, 2021 1:00am take 1 capsule by mouth once aliyah ly cholecalciferol (Vitamin D-3) 50 MCG (2000 UT) capsule Take 1 capsule by mouth 1 (one) time each day at the same time. 0 Active ibuprofen 400 mg oral tablet (1 source) Nonsteroidal Anti-inflammatory Drug take 1 tablet by mouth three times daily at mealtime as needed Ibuprofen 400 MG 1 tablet with food or milk as needed Orally Three times a day Active omeprazole 40 mg delayed release oral capsule (2 sources) Proton Pump Inhibitor Start: 01-26-20 Omeprazole Active MG January 25, 2021 1:00am take 1 capsule by mouth once aliyah ly Omeprazole 10 MG 1 capsule 30 minutes [...] Translations: [Other chronic pain] Onset: 02-06-2023 Resolved: 11-28-2023 11-28-2023 Chronic Other nervous system disorders (1 source) Other chronic pain Onset: 01-13-2021 Resolved: 01-13-2021 Chronic Other screening for suspected conditions (not mental disorders or infectious disease) (4 sources) Other abnormal findings on diagnostic imaging of central nervous system; Translations: [OTH 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 DX IMAGING AUTOMOTIVE TIRE TESTER] Onset: 04-03-2022 Episodic Spondylosis; intervertebral disc disorders; [...] (1 source) Drug therapy finding; Translations: [Other long term care administrator (current) drug therapy] Onset: 02-21-2019 02-06-2023 Episodic [...] Kika Winkler MD 01/13/23 Final result Normal [facility] XR RADIUS ULNA RIGHT (2 VIEW [...] Kika Winkler MD 01/13/23 Final result Normal [facility] XR WRIST RIGHT (MIN 3 VIEWS) [...] wrist, elbow and forearm. Interpreted by: Kika Winkelr MD Signed by: Kika Winkler MD 01/13/23 Final result Normal [facility] MRI ORBIT WO W CONon 01-27-2 023 MRI ORBIT WO W CON Begin [...] the hypothalamus is not included in the vszss-lo-xjmb on the coronal images. This masslike enlargement [...] and hypothalamus is not included in the qhxna-ik-qitd on most of the sequences (coronal plane). 2. Redemonstration of masslike enlargement of the hypothalamus. No associated contrast enhancement. 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 3. Stable T2 hyperintense lesion within the anterior medial left frontal lobe. There is evidence for solid enhancement. This is concerning for glioma given history of neurofibromatosis. Normal [facility] MRI BRAIN WO CONon 3 MRI BRAIN [...] by: DIETER SIDDIQUI Date: 2022-03-28 16:09 Normal [facility] Coding Summary.on 05-27-2019 Coding Summary. CODING DATE: 020 FINAL [facility] STATUS: Home (Routine DC) PAYOR: Sangeetha ADMIT DX: REASON FOR VISIT DX: Z30.8 [...] CphT Date Saved: 05/27/2019 01:37 pm Normal [facility] Semen Analysis PostVason Yvette/Transport Prob No Problems Normal [facility] Comment on above: Performed By: #### 2 [id number], [id number] #### [facility] [address] [place] [address] Other Comment: Order Added by Discern Expert. Collect. Meth Masturbation Normal [facility] Comment on above: Performed By: #### 2 [id number], [id number] #### [facility] [address] [place] [address] Other Comment: Order Added by Discern Expert. Days Abstained 1 day(s) Low 2-5 [facility] Comment on above: Performed By: #### 2 [id number], [id number] #### [facility] [address] [id number] Other Comment: Order Added by Discern Expert. Post Vas Screen No Sperm Seen Normal <=0 [facility] Comment on above: Result Comment: A Co ncentration Technique is used to confirm any semen which is azospermic (no sperm seen). Performed By: #### 2 [id number], [id number] #### [facility] [address] [place] [address] Other Comment: Order Added by Discern Expert. Spec. Container Steril Container Normal [facility] Comment on above: Performed By: #### 2 [id number], [id number] #### [facility] [address] [place] [address] Other Comment: Order Added by Discern Expert. Spec. Temp 22 DegC Normal 20-37 [facility] Comment on above: Performed By: #### 2 [id number], [id number] #### [facility] [address] [place] [address] Other Comment: Order Added by Discern Expert. Sperm Count 0 Million/mL Low >=20 [facility] Comment on above: Result Comment: A Co ncentration Technique is used to evaluate all sperm counts <20 million. Performed By: #### 2 [id number], [id number] #### [facility] [address] [place] [address] Other Comment: Order Added by Discern Expert. Sperm Morphon 05-26-2019 Sperm Morph No sperm identified (A concentration technique is used to evaluate this specimen). Inflammatory cells present. [facility] Comment on above: Order Comment: Order Added by Discern Expert. Performed By: #### 2 [id number], [id number] #### [facility] [address] [place] [address] Other Comment: Order Added by Discern Expert. Sperm Morph No sperm identified (A concentration technique is used to evaluate this specimen). Inflammatory cells present. ICD10 Z30.9 [facility] Comment on above: Order Comment: Order Added by Angel Expert. Performed By: #### 2 [id number], [id number] #### [facility] [address] [place] [address] Other Comment: Order Added by Discern Expert. CNOVon 05-13-2019 CNOV Office Visit (MODESTONMN ) DOC JONAS ([id number]) 1985 M Date Time Provider Department 05/13/19 [...] No hospitalizations, operations, or significant illnesses/injuries. 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 Has not seen a vice investigator or had an echo. Has not seen staff training and development manager in a while; last time in 2010. He reports numbness in hands and feet. Also notes lower back pain for which he occasionally takes [place]. Pain is worsened on prolonged sitting or standing. 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 MRI spine showed multiple tumors. Patient also has multiple nntd-gn-wypi hawley and neurofibromas.No problems using his limbs or walking. Denies bowel/bladder or sexual issues. Neurofibromas are not growing rapidly, hurting spontaneously or getting hard. Got 2 removed a few months ago and wants one on his back removed too (pain on light touch). Headaches: Occur almost daily. Takes Motrin for them. New Neurological Symptoms: None. REVIEW OF SYSTEMS: Skin: multiple pabo-hz-aohc hawley and neurofibromas (torso and scalp) Eyes: [...] Neurofibromatosis type 1: back pain, numbness hands/feet, iauk-pr-vmck hawley, neurofibromas Headaches: daily Care plan, management, [...] Mccallibe Attestation: By signing my name below, I, Pedro Moore, attest that this documentation has been prepared [...] Diagnosis:Neurofibromat osis, type 1 (von Recklinghausen's disease) ([facility]) [Q85.01] Prescriptions as of 05/13/2019 Sig: HYDROCODONE 5 MG-ACETAMINOPHE* Take 1 tablet by mouth as nee* Problem List As Of Date: 05/13/2019 (None) Encounter Status:Closed by Natalee ZELAYA MD on 05/13/19 [facility] PROGRESSon 05-13-2019 PROGRESS HNO ID: [id number] Author: Natalee Zelaya Service: ? Author Type: [...] No hospitalizations, operations, or significant illnesses/injuries. 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 Has not seen a vice investigator or had an echo. Has not seen staff training and development manager in a while; last time in 2010. He reports numbness in hands and feet. Also notes lower back pain for which he occasionally takes [place]. Pain is worsened on prolonged sitting or standing. 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 MRI spine showed multiple tumors. Patient also has multiple odck-iq-nuco hawley and neurofibromas.No problems using his limbs or walking. Denies bowel/bladder or sexual issues. Neurofibromas are not growing rapidly, hurting spontaneously or getting hard. Got 2 removed a few months ago and wants one on his back removed too (pain on light touch). Headaches: Occur almost daily. Takes Motrin for them. New Neurological Symptoms: None. REVIEW OF SYSTEMS: Skin: multiple lljf-kq-eshh hawley and neurofibromas (torso and scalp) Eyes: [...] Neurofibromatosis type 1: back pain, numbness hands/feet, vlvf-io-igmm hawley, neurofibromas Headaches: daily Care plan, management, [...] MD. May 13, 2019 3:37 PM Normal [facility] CNOVon 11-12-2018 CNOV Office Visit (NEPNMN ) FLORENTINDOC ([id number]) 1985 M Date Time Provider Department 11/12/18 2:50 PM Natalee ZELAYA NEPNMN During your visit today, we recorded the following information about you: Pulse Blood pressure Weight Height 77/minute 134/84 81.6 kg 1.575 m Luis Zelaya MD 11/12/2018 3:12 PM Signed PEDIATRIC NEUROLOGY FOLLOW-UP Dear Dr. Christian Benoit had the pleasure of evaluating Doc Valentine Ezequielkedar in the pediatric neurology clinic on 11/12/2018 [...] Diagnosis:Neurofibromat osis, type 1 (von Recklinghausen's disease) ([facility]) [Q85.01] Prescriptions as of 11/12/2018 Sig: HYDROCODONE 5 MG-ACETAMINOPHE* Take 1 tablet by mouth as nee* Problem List As Of Date: 11/12/2018 (None) Disposition: Return in about 6 months (around 05/13/2019). Follow-up and Disposition History Recorded Encounter Status:Closed by Natalee ZELAYA MD on 11/12/18 Normal [facility] PROGRESSon 11-12-2018 PROGRESS HNO ID: [id number] Author: Natalee Zelaya Service: ? Author Type: [...] of care documented above Luis Zelaya MD [facility] CNOVon 06-04-2018 CNOV Office Visit (NEPNMN ) DOC JONAS ([id number]) 1985 M Date Time Provider Department 06/04/18 1:00 PM Natalee ZELAYA During your visit today, we recorded the following information about you: Pulse Blood pressure Weight Height 74/minute 134/71 80.7 kg 1.524 m Luis Zelaya MD 06/04/2018 2:04 PM Signed Dear [...] Headache Status Headache Description-occas hunt, not signif1. [id number]} edx was made at age 22, no [...] you for the opportunity to participate in [facility] care. 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 Problem List As Of Date: 06/04/2018 (None) Disposition: Return in about 6 months (around 12/05/2018). Follow-up and Disposition History Recorded Encounter Status:Closed by Natalee ZELAYA MD on 06/04/18 [facility] PROGRESSon 06-04-2018 PROGRESS HNO ID: [id number] Author: Natalee Zelaya Service: ? Author Type: [...] Headache Status Headache Description-occas hunt, not signif1. [id number]} edx was made at age 22, no [...] and non-focal apart from thousands of n.f.. [place] constellation of neurological symptoms and signs is [...] you for the opportunity to participate in [place] care. If we can answer any additional questions, we would be pleased to do so. Total time including review of medical records, history, physical examination, counseling, and coordination of care took 60 minutes of which > 50% was spent in counseling, coordination, and discussion of the plan of care documented above Sincerely, Luis Zelaya MD Staff Pediatric Neurologist Normal [facility] Vital Signs Date Time Vital Sign Value Performing Clinician [place] ortiz 01-13-2021 15:00-0400 Body weight 82.83 kg Sterling Marquez Other [facility] Other 01-13-2021 15:00-0400 Diastolic blood pressure 86 mm[Hg] Sterling Marquez Other [facility] Other 01-13-2021 15:00-0400 SaO2% (BldA) [Mass fraction] 98 % Sterling Marquez Other [facility] Other 01-13-2021 15:00-0400 Systolic blood pressure 130 mm[Hg] Sterling Marquez Other [facility] Other Encounters Encounter Date Encounter Type Care Provider Facility Start: 12-24-2023 End: 12-24-2023 ambulatory RED ROBLES Not Available Start: 12-18-2023 End: 12-18-2023 ambulatory Arslan Maurice Facility:[facility] Start: 12-18-2023 End: 12-18-2023 Departed Referred DO Arslan Maurice Work Phone: [facility] Start: 11-26-2023 End: 11-26-2023 ambulatory ARSLAN MAURICE Not Available Start: 11-19-2023 End: 11-19-2023 ambulatory RED ROBLES Not Available Start: 04-16-2023 Chart abstracting Tawana rodriguez MD Work Phone: [facility] Start: 01-13-2023 End: 01-13-2023 Emergency department patient visit DIETER Natalee [facility] Start: 04-03-2022 End: 04-04-2022 ambulatory SHAIKH Josh NAVARRO Facility:[facility] Start: 03-27-2022 End: 03-28-[address] RED A NADERER Facility:[facility] Start: 01-13-2021 End: 01-13-2021 ambulatory Sterling Marquez Other [facility] [employer] Other Start: 01-13-2021 Office outpatient vi sit 25 minutes Sterling Marquez [facility] Plan of Treatment Date Care Activity Detail Author Start: 12-18-2023 [facility] Start: 04-16-2023 End: 04-16-2023 Clinical Support [facility] Start: 11-10-2022 Influenza vaccination Influenza Vacc ine (#1) [facility] Payers Date Payer Category Payer Self-pay 2018 Unknown [id number] 2018 Unknown BCBS BCBS [id number] 2018-Present [phone] [address] [place] [address] [id number] 1985 Unknown [id number] 1985 Unknown [id number] 593 1985 Unknown [id number] 174 1985 Unknown [id number] 1259 1985 Unknown [id number] 1259 1985 Unknown [id number] 1259 1961 [facility] [employer] [address] [id number] Unknown [id number] 531 Social History Date Type Detail Facility Start: 02-12-2023 Sex Assigned At N [facility] [employer] Other Start: 02-06-2023 Tobacco smoking status NHIS Never smoked tobacco [facility] Start: 02-06-2023 Tobacco use and exposure Smokeless tobacco non-user [facility] Start: 02-12-2023 Alcohol intake Lifetime non-d rodney (finding) [facility] Start: 02-12-2023 History of Social function [facility] Start: 02-10-2023 Alcohol Comment caffeine intak e: 1-2 cups per day [facility] Start: 1985 Sex Assigned At Not on file [facility] Start: 1985 Sex Assigned At Male F [facility] Evaluation note 01-13-2021 Note Date & Type [...] (ICD-10 - G89.29) Continue medications as prescribed [employer] Other Evaluation note Note Date & Type Note Facility Evaluation note No assessment information availa [facility] Work Phone: History general Narrative - Reported Note Date & Type Note Facility History general Narrative - Reported Type Medical History neurofibromatosis type 1 Medical History neuropathy bue and ble [facility] [employer] Other Summary Purpose Family History No Family History Records Found Relationship Condition Age at Onset Recorded Date/T clint father Heart disease Unknown Advance Directives No Advanced Directives Records Found Advance Directive Response Recorded Date/ Time Advance Directives No May 24, 021 1:16pm Additional Source Comments (unrecognized sect ion and content) No Status Records FoundNo Status Records FoundNo Status Records FoundNo Status Records FoundNo Status Records FoundNo Status Records Found INFORMATION SOURCE (unrecogn ized section and content) DATE CREATED AUTHOR 05/13/2019 [facility] DATE CREATED AUTHOR AUTHOR'S ORGANIZ ATION 04/23/2020 [facility] DATE CREATED AUTHOR AUTHOR'S ORGANIZ ATION 04/08/2022 [facility] DATE CREATED AUTHOR AUTHOR'S ORGANIZ ATION 01/14/2023 [facility] DATE CREATED AUTHOR AUTHOR'S ORGANIZ ATION 12/20/2023 [facility] DATE CREATED AUTHOR AUTHOR'S ORGANIZ ATION 12/26/2023 [facility] EPIC REASON FOR VISIT (unrecogniz ed section and content) FOLLOW UP AFTER RALF LUMBAR M BB Care Teams (unrecognized sec tion and content) Bottling Line Attendant Relationship Specialty Start Date End Date Red Robles MD PCP - General Family Medicine 02/12/23 Team Status: Inactive Member Role Status Dates Arslan Maurice DO Attending Provider Active Star t: December 18, 2023 End: December 18, 2023 Goals (unrecognized section and content) Goals may be documented in a n alternate section FOR RECORDS PERTAINING TO PATIENTS WHO ARE [...] BE BASED ON THE PRIMARY CLINICAL RECORDS. [facility] [employer] [facility]. provides no warranty or guarantee of the accuracy or completeness of information in this document.
[2023-12-26 10:25] LABS: Basophils Absolute Auto 0.1 10^3/uL (0.0-0.1); Basophils Percent Auto 0.8 % (0.2-2.0); Eosinophils Absolute Auto 0.2 10^3/uL (0.0-0.7); Eosinophils Percent Auto 2.4 % (0.9-7.0); Hematocrit 47.9 % (42.0-54.0); Hemoglobin 15.8 g/dL (14.0-18.0); Immature Granulocytes Abs Auto 0.12 10^3/uL (0.00-0.03); Immature Granulocytes Pct Auto 1.7 % (0.0-0.5); Lymphocytes Absolute Auto 1.6 10^3/uL (1.2-3.8); Mean Corpuscular Hemoglobin 27.7 pg (25.9-34.0); Mean Platelet Volume 9.9 fL (9.5-13.5); Monocytes Absolute Auto 0.9 10^3/uL (0.3-0.8); Monocytes Percent Auto 12.7 % (1.7-12.0); Neutrophils Absolute Auto 4.3 10^3/uL (1.4-6.5); Neutrophils Percent Auto 60.4 % (43.0-75.0); Platelet Count 323 10^3/uL (150-450); Red Cell Distribution Width 13.3 % (11.0-15.0); White Blood Count 7.1 10^3/uL (4.0-11.0)
[2023-12-26 11:03] LABS: Alanine Aminotransferase 41 U/L (16-63); Albumin Globulin Ratio 1.1; Albumin Level 3.6 g/dL (3.4-5.0); Alkaline Phosphatase 72 U/L (46-116); Anion Gap 14.1; Aspartate Amino Transferase 22 U/L (15-37); BUN Creatinine Ratio 22.6; Bilirubin Direct 0.1 mg/dL (0.0-0.2); Bilirubin Total 0.4 mg/dL (0.2-1.0); Calcium 9.1 mg/dL (8.5-10.1); Carbon Dioxide 26.3 mmol/L (21.0-32.0); Chloride 106 mmol/L (98-107); Chol HDL Ratio 4.8; Cholesterol 301 mg/dL (<=200); Estimated GFR (African America >60 (>=60 mL/min/1.73m^2); Estimated GFR (Non-African Ame >60 (>=60 mL/min/1.73m^2); Globulin 3.4 g/dL; Glucose 95 mg/dL (74-106); HDL Cholesterol 63 mg/dL (40-60); Potassium 4.4 mmol/L (3.5-5.1); Sodium 142 mmol/L (136-145); Triglycerides 72 mg/dL (<=150); VLDL CHOLESTEROL 14.4 mg/dL
[2023-12-26 11:09] LABS: Prostate Specific Antigen Scrn 1.03 ng/mL (<=4.00)
[2023-12-26 11:24] LABS: Estimated Average Glucose 111 mg/dL; Glycohemoglobin A1C 5.5 % (4.5-6.2)
== END 2023-12-26 10:08 | disposition home or self-care (01) ==
LOC: LAB 10:08
PROVIDERS: PCP Family Medicine; Visit Provider Family Medicine
DX: Z00.00 Encounter for general adult medical examination without abnormal findings (principal)
CPT/HCPCS: 36415; 80048; 80061; 80076; 83036; 84443; 85025; G0103

== ENCOUNTER 2024-07-03 19:10 | Emergency (ER) | payer BC, SELFPAY ==
[2024-07-03 19:14] VITALS: BP 173/80; PULSE 87; TEMP 36.5; BMI 39.1
--- NOTE | 2024-07-03 19:21 | ED_ITS ---
HPI - Abdominal Pain General Chief Complaint: Abdominal Pain Stated Complaint: ABDOMINAL PAIN R SIDE Time Seen by Provider: 07/03/24 19:15 Source: patient Mode of arrival: walk-in Limitations: no limitations History of Present Illness HPI narrative: 38 year old male presents to the ED for right-sided abd pain. Onset was 0600 this morning. Denies fever, chills, injury, N/V/D, urinary sx. Reports he felt a pop to his right abdomen this morning while coughing. The pain is worse with palpation and inspiration. Related Data Home Medications ?Medication ?Instructions ?Recorded ?Confirmed hydroxyzine HCl 25 mg tablet 25 mg PO QID PRN anxiety 12/07/23 12/18/23 pantoprazole 40 mg tablet,delayed 40 mg PO BID 12/07/23 12/18/23 release sertraline 25 mg tablet 25 mg PO DAILY 12/07/23 12/18/23 Allergies Allergy/AdvReac Type Severity Reaction Status Date / Time codeine AdvReac Unknown Nausea and Verified 12/07/23 11:17 vomiting Review of Systems ROS Constitutional Denies: fever or chills Ears, nose, mouth, and throat Denies: throat pain or neck pain Cardiovascular Denies: chest pain Respiratory Denies: shortness of breath or cough Gastrointestinal Reports: abdominal pain; Denies: nausea, vomiting or diarrhea Genitourinary Denies: painful urination, urinary frequency, urinary urgency or blood in urine Musculoskeletal Denies: back pain or neck pain Integumentary/Breast Denies: rash Neurological Denies: headache or dizziness [facility] Medical History (Updated 07/03/24 @ 21:30 by Sandy Pimentel) Dysphagia ?R13.10 - Dysphagia, unspecified (ICD-10) Chronic pain ?G89.29 - Other chronic pain (ICD-10) Neurofibromatosis ?Q85.00 - Neurofibromatosis, unspecified (ICD-10) MRSA (methicillin resistant staph aureus) culture positive ?Z22.322 - Carrier or suspected carrier of Methicillin resistant Staphylococcus aureus (ICD-10) Hypercholesteremia ?E78.00 - Pure hypercholesterolemia, unspecified (ICD-10) GERD (gastroesophageal reflux disease) ?K21.9 - Gastro-esophageal reflux disease without esophagitis (ICD-10) Hearing loss ?H91.90 - Unspecified hearing loss, unspecified ear (ICD-10) Headache ?R51.9 - Headache, unspecified (ICD-10) COVID ?U07.1 - COVID-19 (ICD-10) Back pain ?M54.9 - Dorsalgia, unspecified (ICD-10) Surgical History (Updated 12/07/23 @ 11:16 by Karrie Rodgers) H/O vasectomy ?Z98.52 - Vasectomy status (ICD-10) Family History (Updated 12/07/23 @ 11:18 by Karrie Rodgers) Mother Family history of hypertension Father Family history of hypertension Family history of CHF (congestive heart failure) Family history of diabetes mellitus Family history of COPD (chronic obstructive pulmonary disease) Social History (Updated 12/10/23 @ 12:10 by Mayela Blackmon RN) Within the past year, how often did you have a drink containing alcohol: never Score interpretation: A score less than 4 is consistent with normal alcohol consumption. Smoking status: Never smoker Second hand tobacco smoke exposure: No Non-prescribed substance use: denies use Previous occupational history: [employer] Known occupational exposures/hazards: No Highest level of school completed/degree received: high school graduate Little interest or pleasure in doing things: not at all Feeling down, depressed, or hopeless: not at all Exam Constitutional Vital Signs, click to edit/add: Last Vital Signs Temp 97.7 F 07/03/24 19:14 Pulse 87 07/03/24 19:14 Resp 99 H 07/03/24 19:14 BP 173/80 H 07/03/24 19:14 O2 Del Method Room Air 07/03/24 19:14 Common normals: no apparent distress and oriented x3 General appearance: cooperative HENMT Common normals: moist oral mucous membranes Eye Common normals: conjunctivae normal and no scleral icterus Neck & C-Spine Common normals: supple and no meningeal signs Chest Chest: symmetrical chest wall rise Respiratory Common normals: normal respiratory effort and clear to auscultation bilaterally Effort & inspection: able to speak in complete sentences and symmetric chest movement Cardio Common normals: regular rate and regular rhythm GI Common normals: Normal to inspection, nondistended, normoactive bowel sounds present and soft to palpation Palpation: tender Details: RLQ and RUQ Neuro Common normals: oriented x3, moves all extremities and no focal motor deficits Sensorium/orientation: awake and alert Speech: speech normal Course Vital Signs Vital signs: Vital Signs Temperature 97.7 F 07/03/24 19:14 Pulse Rate 87 07/03/24 19:14 Respiratory Rate 99 H 07/03/24 19:14 Blood Pressure 173/80 H 07/03/24 19:14 Oxygen Delivery Method Room Air 07/03/24 19:14 Temperature 97.7 F 07/03/24 19:14 Pulse Rate 87 07/03/24 19:14 Respiratory Rate 99 H 07/03/24 19:14 Blood Pressure 173/80 H 07/03/24 19:14 Oxygen Delivery Method Room Air 07/03/24 19:14 MDM - Abdominal Pain MDM Narrative Medical decision making narrative: Laboratory studies were unremarkable. CT scan findings were discussed with the patient. The patient did report he felt a pop to his right abdomen this morning while coughing. Abd wall strain was discussed. He has medication at home for constipation. Follow up with pcp for a recheck, further evaluation and treatment. Return precautions were discussed. Differential Diagnosis Differential diagnosis: Likely abdominal pain, constipation, gastroenteritis, pancreatitis and small bowel obstruction Medical Records Attestation: I reviewed the patient's medical records. Lab Data Attestation: I reviewed the patient's lab results. Labs: Lab Results 07/03/24 07/03/24 Range/Units 19:30 19:38 WBC 8.8 (4.0-11.0) 10^3/uL RBC 4.96 (4.70-6.10) 10^6/uL Hgb 14.1 (14.0-18.0) g/dL Hct 42.4 (42.0-54.0) % MCV 85.5 (80.0-94.0) fL MCH 28.4 (25.9-34.0) pg MCHC 33.3 (29.9-35.2) g/dL RDW 13.5 (11.0-15.0) % Plt Count 310 (150-450) 10^3/uL MPV 9.7 (9.5-13.5) fL Neut % (Auto) 63.5 (43.0-75.0) % Lymph % (Auto) 19.9 L (20.5-60.0) % Wilkinson % (Auto) 12.5 H (1.7-12.0) % Eos % (Auto) 2.5 (0.9-7.0) % Baso % (Auto) 0.5 (0.2-2.0) % Neut # (Auto) 5.6 (1.4-6.5) 10^3/uL Lymph # (Auto) 1.8 (1.2-3.8) 10^3/uL Wilkinson # (Auto) 1.1 H (0.3-0.8) 10^3/uL Eos # (Auto) 0.2 (0.0-0.7) 10^3/uL Baso # (Auto) 0.0 (0.0-0.1) 10^3/uL Abs Immat Gran (auto) 0.10 H (0.00-0.03) 10^3/uL Imm/Tot Granulo (auto) 1.1 H (0.0-0.5) % Sodium 141 (136-145) mmol/L Potassium 4.0 (3.5-5.1) mmol/L Chloride 107 (98-107) mmol/L Carbon Dioxide 25.3 (21.0-32.0) mmol/L Anion Gap 12.7 BUN 22.0 H (7.0-18.0) mg/dL Creatinine 0.95 (0.70-1.30) mg/dL Est GFR ( Amer) >60 (>=60 mL/min/1.73m^2) Est GFR (Non-Af Amer) >60 (>=60 mL/min/1.73m^2) BUN/Creatinine Ratio 23.2 Glucose 124 H (74-106) mg/dL Calcium 8.7 (8.5-10.1) mg/dL Total Bilirubin 0.2 (0.2-1.0) mg/dL AST 23 (15-37) U/L ALT 72 H (16-63) U/L Alkaline Phosphatase 85 (46-116) U/L Total Protein 6.6 (6.4-8.2) g/dL Albumin 3.5 (3.4-5.0) g/dL Globulin 3.1 g/dL Albumin/Globulin Ratio 1.1 Lipase 33.0 (16.0-77.0) U/L Urine Color Lt. yellow (YELLOW) Urine Clarity Clear (CLEAR) Urine pH 5.5 (5.0-9.0) Ur Specific [place] >=1.030 A (1.005-1.025) Urine Protein Negative (NEG/TRACE) mg/dL Urine Glucose (UA) Negative (NEGATIVE) mg/dL Urine Ketones Negative (NEGATIVE) mg/dL Urine Occult Blood Negative (NEGATIVE) Urine Nitrite Negative (NEGATIVE) Urine Bilirubin Negative (NEGATIVE) Urine Urobilinogen 0.2 (0.2-1.0) EU/dL Ur Leukocyte Esterase Negative (NEGATIVE) Imaging Data CT scan - abdomen: Attestation: I have reviewed the pertinent imaging results. Radiologist's impression: 1. Normal appendix is well seen. 2. Contracted gallbladder. 3. Constipation at the hepatic flexure. 4. Small umbilical hernia contains only fat. 5. Small midpole right renal cortical cysts. 6. No free fluid or free air. 7. No abscess or hematoma. 8. Significant stranding and soft tissue edema and skin thickening noted overlying the lumbar musculature on the right and left side and this extends over the left gluteal musculature possible due to edema and/or cellulitis. 9. No abscess formation or hematoma. Discharge Plan Discharge Chief Complaint: Abdominal Pain Clinical Impression: Abdominal pain, Constipation, Hernia, umbilical Patient Disposition: Home, Self-Care Time of Disposition Decision: 21:30 Condition: Good Mode of Transportation: Private Vehicle Prescriptions / Home Meds: No Action hydroxyzine HCl 25 mg tablet 25 mg PO QID PRN (Reason: anxiety) pantoprazole 40 mg tablet,delayed release (DR/EC) 40 mg PO BID sertraline 25 mg tablet 25 mg PO DAILY Print Language: Turkish Instructions: Constipation (ED), Muscle Strain (ED), Acute Abdominal Pain (ED) Additional Instructions: Return to the ER for worsening symptoms. Referrals: Red Sam MD [Primary Care Provider] - 1 week
[2024-07-03 19:50] LABS: Basophils Percent Auto 0.5 % (0.2-2.0); Eosinophils Absolute Auto 0.2 10^3/uL (0.0-0.7); Eosinophils Percent Auto 2.5 % (0.9-7.0); Hematocrit 42.4 % (42.0-54.0); Hemoglobin 14.1 g/dL (14.0-18.0); Immature Granulocytes Pct Auto 1.1 % (0.0-0.5); Lymphocytes Absolute Auto 1.8 10^3/uL (1.2-3.8); Lymphocytes Percent Auto 19.9 % (20.5-60.0); Mean Corpuscular HGB Conc 33.3 g/dL (29.9-35.2); Mean Corpuscular Hemoglobin 28.4 pg (25.9-34.0); Mean Corpuscular Volume 85.5 fL (80.0-94.0); Mean Platelet Volume 9.7 fL (9.5-13.5); Monocytes Absolute Auto 1.1 10^3/uL (0.3-0.8); Monocytes Percent Auto 12.5 % (1.7-12.0); Neutrophils Absolute Auto 5.6 10^3/uL (1.4-6.5); Neutrophils Percent Auto 63.5 % (43.0-75.0); Platelet Count 310 10^3/uL (150-450); Red Blood Count 4.96 10^6/uL (4.70-6.10); Red Cell Distribution Width 13.5 % (11.0-15.0); White Blood Count 8.8 10^3/uL (4.0-11.0)
[2024-07-03 19:52] LABS: Bilirubin Urine NEGATIVE (NEGATIVE); Blood Urine NEGATIVE (NEGATIVE); Clarity Urine CLEAR (CLEAR); Color Urine LT. YELLOW (YELLOW); Glucose Urine UA NEGATIVE (NEGATIVE); Ketones Urine NEGATIVE (NEGATIVE); Leukocyte Esterase Urine NEGATIVE (NEGATIVE); Nitrite Urine NEGATIVE (NEGATIVE); Protein Urine NEGATIVE (NEG/TRACE); Specific Gravity Urine >=1.030 (1.005-1.025); Urine Microscopic Indicated NO; Urobilinogen Urine 0.2 EU/dL (0.2-1.0); pH Urine 5.5 (5.0-9.0)
[2024-07-03 20:10] LABS: Alanine Aminotransferase 72 U/L (16-63); Albumin Globulin Ratio 1.1; Albumin Level 3.5 g/dL (3.4-5.0); Alkaline Phosphatase 85 U/L (46-116); Anion Gap 12.7; Aspartate Amino Transferase 23 U/L (15-37); BUN Creatinine Ratio 23.2; Bilirubin Total 0.2 mg/dL (0.2-1.0); Calcium 8.7 mg/dL (8.5-10.1); Carbon Dioxide 25.3 mmol/L (21.0-32.0); Chloride 107 mmol/L (98-107); Estimated GFR (African America >60 (>=60 mL/min/1.73m^2); Estimated GFR (Non-African Ame >60 (>=60 mL/min/1.73m^2); Globulin 3.1 g/dL; Glucose 124 mg/dL (74-106); Sodium 141 mmol/L (136-145); Total Protein 6.6 g/dL (6.4-8.2)
[2024-07-03 21:38] VITALS: BP 142/67; PULSE 78; O2SAT 98
== END 2024-07-03 21:40 | disposition home or self-care (01) ==
PROVIDERS: Nurse Practitioner Family; Emergency Provider Emergency Medicine; PCP Family Medicine
DX: R10.9 Unspecified abdominal pain (principal); K59.00 Constipation, unspecified; K42.9 Umbilical hernia without obstruction or gangrene; Z98.52 Vasectomy status
CPT/HCPCS: 36415; 74177; 80053; 81003; 83690; 85025; 99285; Q9967

== ENCOUNTER 2024-08-19 15:47 | Outpatient (OUT) | payer BC, SELFPAY ==
--- OUTSIDE RECORDS SUMMARY | 2024-08-19 14:30 | XMS_ITS | Encounter Summary ---
Author Organization [facility] Address [address] [place] [address] Care Team Providers Care Horse Rider Name Role Phone Red Sam MD Primary Care Provider [phone] Reason for Referral * Medications - Pending Review Specialty Diagnoses / Procedures Referred By Conthafsa t Referred To Contact Diagnoses Class 3 severe obesity due to excess calories with serious comorbidity and body mass index (BMI) of 40.0 to 44.9 in adult Red Sam MD [address] [place] [address] Phone: tel: fax: Referral ID Status Reason Start Date Expiration Date V isits Requested Visits Authorized [id number] Pending Review 1 1 Reason for Visit * Reason Comments Follow-up Check up Encounter Details Date Type Department Care Team (Late Contact Info) Description 08/19/2024 2:30 PM EDT Office Visit [facility] [address] [place] [address] Red Sam MD [address] [place] [address] Moderate major depression, single episode (HCC) (CMS/HCC) (Primary Dx); INDIA (generalized anxiety disorder) (CMS/HCC); Dyslipidemia (CMS/HCC); Class 3 severe obesity due to excess calories with serious comorbidity and body mass index (BMI) of 40.0 to 44.9 in adult; Neurofibromatosis, type 1 (CMS/HCC) Social History Tobacco Use Types Packs/Day Years Used Date Smoking Tobacco: Never Smokeless Tobacco: Never Alcohol Use Standard Drinks/Week Comments Never 0 (1 standard drink = 0.6 oz pure alcohol) caffeine intake: 1-2 cups per day B1300 Health Literacy Answer Date Recor ded How often do you need to hav e someone help you when you read instructions, pamphlets, or other written material from your doctor or pharmacy? Never 12/23/2023 Social Connection and Isolat ion Panel [NHANES] Answer Date Recorded In a typical week, how many times do you talk on the phone with family, friends, or neighbors? Three times a week 12/23/2023 How often do you get togethe r with friends or relatives? Twice a week 12/23/2023 How often do you attend chur ch or bahai services? More than 4 times per year 12/23/2023 Do you belong to any clubs o r organizations such as catholic groups, unions, fraternal or athletic groups, or school groups? Yes 12/23/2023 How often do you attend meet ings of the clubs or organizations you belong to? More than 4 times per year 12/23/2023 Are you , , di vorced, , never , or living with a partner? 12/23/2023 AUDIT-C Answer Date Recorded Q1: How often do you have a drink containing alcohol? Never 12/23/2023 Q2: How many drinks containi ng alcohol do you have on a typical day when you are drinking? Patient does not drink Q3: How often do you have si x or more drinks on one occasion? Never 12/23/2023 Overall Financial Resource Strain (CARDIA) Answe r Date Recorded How hard is it for you to pa y for the very basics like food, housing, medical care, and heating? Not very hard 12/23/2023 [facility] of Occupat ional Health - Occupational Stress Questionnaire Answer Date Recorded Do you feel stress - tense, restless, nervous, or anxious, or unable to sleep at night because your mind is troubled all the time - these days? To some extent 12/23/2023 Exercise Vital Sign Answer Date Recorde d On average, how many days pe r week do you engage in moderate to strenuous exercise (like a brisk walk)? 0 days 12/23/2023 On average, how many minutes do you engage in exercise at this level? 0 min 12/23/2023 Hunger Vital Sign Answer Date Recorded Within the past 12 months, y ou worried that your food would run out before you got the money to buy more. Sometimes true Within the past 12 months, t he food you bought just didn't last and you didn't have money to get more. Sometimes true PRAPARE - Transportation Answer Date Re corded In the past 12 months, has l ack of transportation kept you from medical appointments or from getting medications? No 12/10 In the past 12 months, has l ack of transportation kept you from meetings, work, or from getting things needed for daily living? No 12/23/2023 Housing Stability Vital Sign Answer Marcelo e Recorded In the last 12 months, was t here a time when you were not able to pay the mortgage or rent on time? No 12/23/2023 In the past 12 months, how m any times have you moved where you were living? 0 12/23/2023 At any time in the past 12 m [facility], were you homeless or living in a half-way (including now)? No 12/23/2023 Sex and Gender Information Value Date Recorded Sex Assigned at Not on file Legal Sex Male 9:28 PM EDT Gender Identity Not on file Sexual Orientation Not on file documented as of this encounter Last Filed Vital Signs Vital Sign Reading Time Taken Comments Blood Pressure 144/78 08/19/2024 2:46 PM EDT Pulse 95 08/19/2024 2:46 PM EDT Temperature 36.9 C (98.4 F) 08/19/2024 2:46 PM EDT Respiratory Rate 18 08/19/2024 2:46 PM EDT Oxygen Saturation 96% 08/19/2024 2:46 PM EDT Inhaled Oxygen Concentration - - Weight 96.6 kg (213 lb) 08/19/2024 2:46 PM EDT Height 152.4 cm (5') 08/19/2024 2:46 PM EDT Body Mass Index 41.6 08/19/2024 2:46 PM EDT documented in this encounter Progress Notes * Red Sam MD - 08/19/2024 3:29 PM EDTAssociated Problem(s): Neurofibromatosis, type 1 (CMS/HCC) Follow with neurology. * Red Sam MD - 08/19/2024 3:28 PM EDTAssociated Problem(s): Moderate major depression, single episode (HCC) (CMS/HCC) Symptoms worse and increase prozac. Warned will take 2-3 weeks to notice improvement in mood. * Red Sam MD - 08/19/2024 3:28 PM EDTAssociated Problem(s): INDIA (generalized anxiety disorder) (CMS/HCC) Symptoms worse and increase prozac. Warned will take 2-3 weeks to notice improvement in mood. * Red Sam MD - 08/19/2024 3:27 PM EDTAssociated Problem(s): Dyslipidemia (CMS/HCC) Repeat labs. * Red Sam MD - 08/19/2024 3:27 PM EDTAssociated Problem(s): Class 3 severe obesity due to excess calories with serious comorbidity and body mass index (BMI) of 40.0 to 44.9 in adult Continues to gain weight. Discussed diet and exercise. Try tirzepatide. * Red Sam MD - 08/19/2024 2:30 PM EDT Images from the original note were not included. Subjective Patient ID: Doc Jonas is a 39 y.o. male who presents for Follow-up (Check up). Follow up depression, anxiety, and weight. Mood recently worse. Not feeling as depressed but reports just doesn't care about things. Would rather stay at home but interacts with others if around. Notas stressed out or overwhelmed. Not worrying as much. Still taking prozac daily. Weight up 19 pounds. Took adipex but no change in weight. Tries to stay active but not exercising regularly. Tries to watch diet and eat healthy. Increased fruits and vegetables. Smaller portions and limits snacking. Tries to limit total daily calories. Taking lipitor but did not have labs repeated. Review of Systems Constitutional: Negative for fatigue. Respiratory: Negative for cough, shortness of breath and wheezing. Cardiovascular: Negative for chest pain and palpitations. Gastrointestinal: Negative for abdominal pain, diarrhea, nausea and vomiting. Genitourinary: Negative for dysuria. Objective Physical Exam Constitutional: General: He is not in acute distress. Appearance: Normal appearance. HENT: Head: Normocephalic. Right Ear: Tympanic membrane and ear canal normal. Left Ear: Tympanic membrane and ear canal normal. Eyes: Extraocular Movements: Extraocular movements intact. Pupils: Pupils are equal, round, and reactive to light. Cardiovascular: Rate and Rhythm: Normal rate and regular rhythm. Heart sounds: No murmur heard. No friction rub. No gallop. Pulmonary: Breath sounds: Normal breath sounds. No wheezing, rhonchi or rales. Abdominal: General: Bowel sounds are normal. There is no distension. Palpations: Abdomen is soft. Tenderness: There is no abdominal tenderness. There is no guarding or rebound. Musculoskeletal: Left lower leg: No edema. Neurological: Mental Status: He is alert. Assessment/Plan Problem List Items Addressed This Visit Dyslipidemia (CMS/HCC) Repeat labs. Moderate major depression, single episode (HCC) (CMS/HCC) - Primary Symptoms worse and increase prozac. Warned will take 2-3 weeks to notice improvement in mood. Relevant Medications FLUoxetine (PROzac) 20 MG capsule INDIA (generalized anxiety disorder) (CMS/HCC) Symptoms worse and increase prozac. Warned will take 2-3 weeks to notice improvement in mood. Class 3 severe obesity due to excess calories with serious comorbidity and body mass index (BMI) of40.0 to 44.9 in adult Continues to gain weight. Discussed diet and exercise. Try tirzepatide. Relevant Medications Tirzepatide 2.5 MG/0.5ML solution auto-injector documented in this encounter Plan of Treatment Upcoming Encounters Date Type Department Care Team (Late st Contact Info) Description 10/23/2024 1:45 PM EDT Office Visit [facility] [address] [place] [address] Red Sam MD [address] [place] [address] documented as of this encounter Visit Diagnoses Diagnosis Moderate major depression, single episode (HCC) (CMS/HCC)- Primary Major depressive disorder, single episode, moderate INDIA (generalized anxiety disorder) (CMS/HCC) Generalized anxiety disorder Dyslipidemia (CMS/HCC) Other and unspecified hyperlipidemia Class 3 severe obesity due to excess calories with serious comorbidity and body mass index (BMI) of 40.0 to 44.9 in adult Neurofibromatosis, type 1 (CMS/HCC) Neurofibromatosis, Type 1 (von Recklinghausen's disease) documented in this encounter Care Teams Horse Rider Relationship Specialty Start Date End Date Red Sam MD [address] [place] [address] PCP - General Family Medicine 11/19/23 documented as of this encounter
--- OUTSIDE RECORDS SUMMARY | 2024-08-19 15:50 | XMS_ITS | Clinical Summary ---
Author Organization [facility] Address [address] [place] [id number] Care Team Providers Care Test Department Helper Name Role Phone Unavailable Primary Care Provider Unavailabl e Allergies Active Allergy Reactions Criticality Noted Date Comments Acetaminophen-Codeine Unknown 06/04/2018 Codeine Unknown Low 05/31/2018 States nausea Medications HYDROcodone-acet aminophen (NORCO) 5-325 mg per tablet Take 1 tablet by mouth as needed. Active Social History Tobacco Use Types Packs/Day Years Used Date Smoking Tobacco: Never Smokeless Tobacco: Never Area Deprivation Index Answer Date Efren rded National Score (1-100), lower number is lower ri sk Not on file 02/19/2020 State Score (1-10), lower number is lower risk N ot on file 02/19/2020 Data from: https://www.neighborhoodatlas.medicine.[facility].edu/. Last address used for calculation Not on file 02/19/2020 Sex and Gender Information Value Date Recorded Sex Assigned at Not on file Legal Sex Male 1:58 PM EST Gender Identity Not on file Sexual Orientation Not on file Last Filed Vital Signs Vital Sign Reading Time Taken Comments Blood Pressure 135/67 05/13/2019 2:40 PM EST Pulse 78 05/13/2019 2:40 PM EST Temperature - - Respiratory Rate - - Oxygen Saturation - - Inhaled Oxygen Concentration - - Weight 71.8 kg (158 lb 3.2 oz) 05/13/2019 2:40 P M EST Height 152.4 cm (5') 05/13/2019 2:40 PM EST Body Mass Index 30.9 05/13/2019 2:40 PM EST Plan of Treatment Health Maintenance Due Date Last Done Comments Anxiety Screening 07/20/2001 Depression Screening 07/20/2001 HIV Screening 07/20/2001 Hepatitis C Screening 07/20/2001 DTaP,Tdap,Td Vaccine (1 - Tdap) 07/20/2002 Hepatitis B Vaccine (1 of 3 - 19+ 3-dose series) 07/20 Lipid Screening 07/20/2018 Covid-19 Vaccine ( season) 2023 Influenza Vaccine (Season Ended) 2024 Insurance PPO OOS
--- OUTSIDE RECORDS SUMMARY | 2024-08-19 15:50 | XMS_ITS | Encounter Summary ---
Author Organization [facility] Address [address] [place] [address] Care Team Providers Care Contractor Buyer Name Role Phone Red Sam MD Primary Care Provider [phone] Encounter Details Date Type Department Care Team (Late st Contact Info) Description 08/19/2024 Bamboo flowsheet [facility] [address] [place] [address] Red Sam MD [address] [place] [id number] Social History Tobacco Use Types Packs/Day Years [...] 12/23/2023 How often do you attend chur or confucianist services? More than 4 times per year 12/23/2023 Do you belong to any clubs o r organizations such as jain groups, unions, fraternal or athletic groups, or [...] and heating? Not very hard 12/23/2023 [facility] of Occupat ional Health - Occupational Stress [...] time in the past 12 m [facility], were you homeless or living in a usp (including now)? No 12/23/2023 Sex and Gender Information Value Date Recorded Sex Assigned at Not on file Legal Sex Male 9:28 PM EDT Gender Identity Not on file Sexual Orientation Not on file documented as of this encounter Plan of Treatment Upcoming Encounters Date Type Department Care Team (Late st Contact Info) Description 10/23/2024 1:45 PM EDT Office Visit [facility] [address] [place] [address] Red Sam MD [address] [place] [id number] documented as of this encounter Visit Diagnoses Not on filedocumented in this encounter Care Teams Contractor Buyer Relationship Specialty Start Date End Date Red Sam MD [address] [place] [address] PCP - General Family Medicine 11/19/23 documented as of this encounter
--- OUTSIDE RECORDS SUMMARY | 2024-08-19 15:50 | XMS_ITS | Encounter Summary ---
Author Organization [facility] Address [address] [place] [address] Care Team Providers Care Print And Pattern Designer Name Role Phone Red Sam MD Primary Care Provider [phone] Red Sam MD Unavailable Encounter Details Date Type Department Care Team (Late st Contact Info) Description 12/10/2023 Clinisync Result Encounter [facility] External Department Unsolicited Arslan Maurice DO Social History Tobacco Use Types Packs/Day Years Used Date Smoking Tobacco: Never Smokeless Tobacco: Never Alcohol Use Standard Drinks/Week Comments Never 0 (1 standard drink = 0.6 oz pure alcohol) caffeine intake: 1-2 cups per day Sex and Gender Information Value Date Recorded Sex Assigned at Not on file Legal Sex Male 9:28 PM EDT Gender Identity Not on file Sexual Orientation Not on file documented as of this encounter Plan of Treatment Upcoming Encounters Date Type Department Care Team (Late st Contact Info) Description 10/23/2024 1:45 PM EDT Office Visit [facility] [address] [place] [address] Red Sam MD [address] [place] [phone] documented as of this encounter Procedures Procedure Name Priority Date/Time Associated Diagnosis Comments XR CINERADIOGRAPHY 12/10/2023 10 :12 AM EDT documented in this encounter Results * XR CINERADIOGRAPHY (12/10/2023 10:12 AM EDT) Anatomical Region Laterality Modality Other 12/10/2023 10:1 2 AM EDT Narrative 12/10/2023 10:15 [place] [address] Fluoroscopy Report Signed Patient: DOC JONAS MR#: [id number] : 1985 Acct:[id number] Age/Sex: 38 / M ADM Date: 12/10/23 Loc: [place] Attending Dr: Arslan Maurice D.O. Ordering Physician: Arslan Maurice D.O. Date of Service: 12/10/23 Procedure(s): FL cineradiography Accession Number(s): [id number] cc: Arslan Maurice D.O.; Red Sam M.D. [place] [address] Patient Name: DOC JONAS MRN: [id number] date: 1985 Sex: M Assigned Patient Location: [place] Current Patient Location: [place] Accession/Order Number: [id number] Exam Date: 12/10/2023 08:05 Report Date: 12/10/2023 10:12 At the request of: ARSLAN MAURICE Procedure: FL cineradiography EXAMINATION: FL upper GI w air, FL small bowel, FL cineradiography HISTORY: Hiatal Hernia K44.9 COMPARISON: No relevant comparison available. TECHNIQUE: Upper GI and small bowel series was performed in the usual manner. Standard level fluoroscopic mode of operation utilized. FINDINGS: ESOPHAGUS: Multiples episodes of prominent gastroesophageal reflux extending to the thoracic inlet. No appreciable stricture, abnormal dilation, or mucosal irregularity. STOMACH: No obstruction, mass, or ulceration. Normal motility. DUODENUM: No ulceration or diverticulum. JEJUNUM: Normal motility. No obstruction or visible lesion. ILEUM: Normal motility. No obstruction or visible lesion. OTHER: Negative. FL/FL cineradiography IMPRESSION: 1. Prominent gastroesophageal reflux without appreciable damage to the esophagus, mass, or stricture. 2. Unremarkable stomach. 3. Unremarkable small bowel. Electronically authenticated by: DANIEL CHRISTIANSON Date: 12/10/2023 10:12 Dictated By: Daniel Christianson M.D. Signed By: 12/10/23 1015 DD/ 1012 TD/TT: Ent Nurse: Procedure Note Radiology, Radiologist, - 12/10/2023 [place] [address] Fluoroscopy Report Signed Patient: DOC JONAS [facility]#: [id number] : 1985Acct:[id number] Age/Sex: 38 / MADM Date: 12/10/23 Loc: [place] Attending Dr: Arslan Maurice D.O. Ordering Physician: Arslan Maurice D.O. Date of Service: 12/10/23 Procedure(s): FL cineradiography Accession Number(s): [id number] cc: Arslan Maurice D.O.; Red Sam M.D. The [place] [address] Patient Name: DOC JONAS MRN: [id number] date: 1985 Sex: M Assigned Patient Location: [place] Current Patient Location: [place] Accession/Order Number: [id number] Exam Date: 12/10/2023 08:05 Report Date: 12/10/2023 10:12 At the request of: ARSLNA MAURICE Procedure: FL cineradiography EXAMINATION: FL upper GI w air, FL small bowel, FL cineradiography HISTORY: Hiatal Hernia K44.9 COMPARISON: No relevant comparison available. TECHNIQUE: Upper GI and small bowel series was performed in the usualmanner. Standard level fluoroscopic mode of operation utilized. FINDINGS: ESOPHAGUS: Multiples episodes of prominent gastroesophageal refluxextending to the thoracic inlet. No appreciable stricture, abnormal dilation, ormucosal irregularity. STOMACH: No obstruction, mass, or ulceration. Normal motility. DUODENUM: No ulceration or diverticulum. JEJUNUM: Normal motility. No obstruction or visible lesion. ILEUM: Normal motility. No obstruction or visible lesion. OTHER: Negative. FL/FL cineradiography IMPRESSION: 1. Prominent gastroesophageal reflux without appreciable damage to the esophagus, mass, or stricture. 2. Unremarkable stomach. 3. Unremarkable small bowel. Electronically authenticated by: DANIEL CHRISTIANSON Date: 12/10/2023 10:12 Dictated By: Daniel Christianson M.D. Signed By:12/10/23 1015 DD/ 1012 TD/TT: Ent Nurse: us Arslan Maurice DO [facility] Final Result documented in this encounter Visit Diagnoses Not on filedocumented in this encounter Care Teams Print And Pattern Designer Relationship Specialty Start Date End Date Red Sam MD [address] [place] [phone] PCP - General Family Medicine 11/19/23 Red Sam MD [address] [place] [phone] PCP - [place] [employer] 01/11/24 documented as of this encounter
--- OUTSIDE RECORDS SUMMARY | 2024-08-19 15:50 | XMS_ITS | Clinical Summary ---
Author Organization [facility] Address [address] [place] [address] Care Team Providers Care Palliative Care Physician Name Role Phone Unavailable Primary Care Provider Unavailabl e Allergies Active Allergy Reactions Criticality Noted Date Comments Codeine Other (See Comments) Low 05/31/2018 States nausea Medications ibuprofen (ADVIL;MOTRIN) 800 MG tablet Take 1 tablet by mouth every 8 hours as needed for Pain Active Social History Tobacco Use Types Packs/Day Years Used Date Smoking Tobacco: Never Smokeless Tobacco: Never Tobacco Cessation:Counseling Given: Not Answered Alcohol Use Standard Drinks/Week Comments Never 0 (1 standard drink = 0.6 oz pur e alcohol) AUDIT-C Answer Date Recorded Q1: How often do you have a drink containing alcohol? Never 01/13/2023 Q2: How many drinks containi ng alcohol do you have on a typical day when you are drinking? Patient does not drink Q3: How often do you have si x or more drinks on one occasion? Never 01/13/2023 Sex and Gender Information Value Date Recorded Sex Assigned at Not on file Legal Sex Male 3:35 AM EDT Gender Identity Not on file Sexual Orientation Not on file Last Filed Vital Signs Vital Sign Reading Time Taken Comments Blood Pressure 152/94 01/13/2023 4:32 PM EDT Pulse 83 01/13/2023 4:32 PM EDT Temperature 36.8 C (98.3 F) 01/13/2023 4:32 PM EDT Respiratory Rate 18 01/13/2023 4:32 PM EDT Oxygen Saturation 99% 01/13/2023 4:32 PM EDT Inhaled Oxygen Concentration - - Weight 83 kg (183 lb) 01/13/2023 4:39 PM EDT Height 152.4 cm (5') 01/13/2023 4:39 PM EDT Body Mass Index 35.74 01/13/2023 4:39 PM EDT Plan of Treatment Health Maintenance Due Date Last Done Comments Depression Screen 1995 Varicella vaccine (1 of 2 - 13+ 2-dose series) 07/20/1996 HIV screen 07/20/1998 Hepatitis C screen 07/20/2001 DTaP/Tdap/Td vaccine (1 - Tdap) 07/20/2002 Hepatitis B vaccine (1 of 3 - 19+ 3-dose series) 07/20/2002 Lipids 2023 COVID-19 Vaccine (1 - 2023-2 5 season) 2023 Flu vaccine (Season Ended) 2024 HPV vaccine Aged Out No longer eligi ble based on patient's age to complete this topic Hepatitis A vaccine Aged Out No longe r eligible based on patient's age to complete this topic Hib vaccine Aged Out No longer eligi ble based on patient's age to complete this topic Meningococcal (ACWY) vaccine Aged Out No longer eligible based on patient's age to complete this topic Meningococcal B vaccine Aged Out No l onger eligible based on patient's age to complete this topic Pneumococcal 0-49 years Vaccine Aged Out No longer eligible based on patient's age to complete this topic Polio vaccine Aged Out No longer elig ible based on patient's age to complete this topic Insurance GENERIC SELF-INSURED GENERIC M[employer]
--- OUTSIDE RECORDS SUMMARY | 2024-08-19 15:50 | XMS_ITS | Clinical Summary ---
Author Organization [facility] Address [address] [place] [address] Care Team Providers Care Bullet Maker Name Role Phone Red Sam MD Primary Care Provider [phone] Allergies Active Allergy Reactions Criticality Noted Date Comments Codeine Nausea And Vomiting Low 12/18/2007 Other Reaction(s): nausea and vomiting Medications hydrOXYzine HCl (Atarax) 25 MG tabletIndicatio ns:INDIA (generalized anxiety disorder) (CMS/HCC) Take 1 tablet (25 mg) by mouth 4 (four) times a day as needed for anxiety 30 tablet 2 11/19/19 24 Active atorvastatin (Lipitor) 40 MG tabletIndicatio ns:Dyslipidemia (CMS/HCC) TAKE 1 TABLET BY MOUTH AT BEDTIME 90 tablet 1 04/16/19 25 Active pantoprazole (ProtoNix) 40 MG EC tabletIndicatio ns:Gastroesopha geal reflux disease without esophagitis TAKE 1 TABLET BY MOUTH IN THE MORNING AND AT NOON 180 tablet 2 04/22/19 25 Active Tirzepatide 2.5 MG/0.5ML solution auto-injectorIn dications:Class 3 severe obesity due to excess calories with serious comorbidity and body mass index (BMI) of 40.0 to 44.9 in adult Inject 2.5 mg under the skin 1 (one) time per week 2 mL 1 08/20/19 25 Active FLUoxetine (PROzac) 20 MG capsuleIndicati ons:Moderate major depression, single episode (HCC) (CMS/HCC) Take 3 capsules (60 mg) by mouth Daily 90 capsule 3 08/20/19 25 Active FLUoxetine (PROzac) 40 MG capsuleIndicati ons:Moderate major depression, single episode (HCC) (CMS/HCC) Take 1 capsule (40 mg) by mouth Daily 30 capsule 5 03/24/19 25 025 Discontinued phentermine (Adipex-P) 37.5 MG tabletIndicatio ns:Class 2 severe obesity due to excess calories with serious comorbidity and body mass index (BMI) of 38.0 to 38.9 in adult (CMS/HCC) Take 1 tablet (37.5 mg) by mouth in the morning. Take before meals. 30 tablet 04/22/19 25 025 Discontinued FLUoxetine (PROzac) 40 MG capsuleIndicati ons:Moderate major depression, single episode (HCC) (CMS/HCC) TAKE 1 CAPSULE BY MOUTH EVERY DAY 90 capsule 1 07/22/19 25 025 Discontinued(Re order) Active Problems Problem Noted Date Diagnosed Date Encounter for long-term current use of medicatio n 03/24/2024 Bilateral shoulder pain 03/24/2024 Assessment & Plan (03/24/2024 9:05 AM EST): Pain over AC joint. Handout with ROM exercises. Use motrin PRN. Annual physical exam 12/24/2023 Class 3 severe obesity due t o excess calories with serious comorbidity and body mass index (BMI) of 40.0 to 44.9 in adult 12/24/2023 Assessment & Plan (08/19/2024 3:27 PM EDT): Continues to gain weight. Discussed diet and exercise. Try tirzepatide. Assessment & Plan (03/24/2024 9:04 AM EST): Patient overweight and difficult time losing weight. Discussed proper diet and regular aerobic exercise. Recommend Weight Watchers and need to limit calories and smaller portions. Need to increase activity and regular aerobic exercise several days a week for 30 minutes at a time. Interested in adipex and warned of potential cardiac side effects. Script written for first month and will need to recheck weight in 1 month. OARRS reviewed. Continue medications as prescribed. Assessment & Plan (12/24/2023 2:07 PM EDT): Weight loss indicated. Esophageal dysphagia 11/19/2023 Assessment & Plan (11/19/2023 2:05 PM EDT): Feels like food sticking and uncontrolled reflux. Refer to surgeon for EGD. Gastroesophageal reflux disease without esophagi tis 11/19/2023 Assessment & Plan (12/24/2023 2:06 PM EDT): Follow with surgeon. Assessment & Plan (11/19/2023 2:06 PM EDT): Uncontrolled reflux and increase protonix. Moderate major depression, single episode (HCC) 11/19/2023 Assessment & Plan (08/19/2024 3:28 PM EDT): Symptoms worse and increase prozac. Warned will take 2-3 weeks to notice improvement in mood. Assessment & Plan (03/24/2024 9:04 AM EST): Symptoms improved with prozac but still present and increase dose. Assessment & Plan (12/24/2023 2:05 PM EDT): Continued symptoms and minimal improvement with zoloft and stop. Try prozac and warned will take 2-3 weeks to notice improvement in mood. Assessment & Plan (11/19/2023 2:06 PM EDT): Severe symptoms and not functioning well. Start zoloft and warned will take 2-3 weeks to notice improvement in mood. INDIA (generalized anxiety disorder) 11/19/2023 Assessment & Plan (08/19/2024 3:28 PM EDT): Symptoms worse and increase prozac. Warned will take 2-3 weeks to notice improvement in mood. Assessment & Plan (03/24/2024 9:04 AM EST): Symptoms improved with prozac but still present and increase dose. Use hydroxyzine PRN. Assessment & Plan (12/24/2023 2:05 PM EDT): Continued symptoms and minimal improvement with zoloft and stop. Try prozac and warned will take 2-3 weeks to notice improvement in mood. Use hydroxyzine PRN. Assessment & Plan (11/19/2023 2:06 PM EDT): Severe symptoms and not functioning well. Start zoloft and warned will take 2-3 weeks to notice improvement in mood. Start hydroxyzine PRN. 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 Assessment & Plan (11/19/2023 2:06 PM EDT): Follow with neurology. Dyslipidemia 12/18/2007 Assessment & Plan (08/19/2024 3:27 PM EDT): Repeat labs. Low back pain 12/18/2007 Overview (02/06/2023): Chronic Attributed to NF Resolved Problems Problem Noted Date Diagnosed Date Resolved Date Other chronic pain 02/06/2023 3 Encounters Date Type Department Care Team Description 08/19/2024 2:30 PM EDT Office Visit [facility] [address] [place] [address] Red Sam MD Moderate major depression, single episode (HCC) (CMS/HCC) (Primary Dx); INDIA (generalized anxiety disorder) (CMS/HCC); Dyslipidemia (CMS/HCC); Class 3 severe obesity due to excess calories with serious comorbidity and body mass index (BMI) of 40.0 to 44.9 in adult; Neurofibromatosis, type 1 (CMS/HCC) 08/19/2024 Bamboo flowsheet [facility] [address] [place] [phone] Red Sam MD 07/20/2024 Refill [facility] [address] [place] [address] Red Sam MD Moderate major depression, single episode (HCC) (CMS/HCC) from Last 3 Months Family History Medical History Relation Name Comments COPD Father Doc Mildkedar Diabetes Father Doc Mildkedar Heart failure Father Doc Mildkedar Hypertension Father Doc Mildkedar Hypertension Mother Jackie ford Relation Name Status Comments Father Doc Mildner Alive Mother Jackie ford Alive Social History Tobacco Use Types Packs/Day Years [...] How often do you attend chur or mosque services? More than 4 times per year 12/23/2023 Do you belong to any clubs o r organizations such as scientology groups, unions, fraternal or athletic groups, or [...] care, and heating? Not very hard 12/23/2023 [facility] - Occupational Stress Questionnaire Answer Date Recorded [...] any time in the past 12 m [facility], were you homeless or living in a intermediate (including now)? No 12/23/2023 Sex and Gender [...] Mass Index 41.6 08/19/2024 2:46 PM EDT Plan of Treatment Upcoming Encounters Date Type Department Care Team (Late st Contact Info) Description 10/23/2024 1:45 PM EDT Office Visit [facility] [address] [place] [address] Red Sam MD [address] [place] [address] Health Maintenance Due Date Last Done Comments Influenza Vaccine (Season Ended) 2024 Insurance BS Care Teams Bullet Maker Relationship Specialty Start Date End Date Red Sam MD [address] [place] [address] PCP - General Family Medicine 11/19/23
--- OUTSIDE RECORDS SUMMARY | 2024-08-19 15:50 | XMS_ITS | Clinical Summary ---
Author Organization [facility] Address [id number] [place] [address] Care Team Providers Care Supervisor Modern Languages Name Role Phone Unavailable Primary Care Provider Unavailabl e Social History Tobacco Use Types Packs/Day Years Used Date Smoking Tobacco: Never Assessed Sex and Gender Information Value Date Recorded Sex Assigned at Not on file Legal Sex Male 10:24 AM EST Gender Identity Not on file Sexual Orientation Not on file Plan of Treatment Not on file Medical Devices Not on file
--- OUTSIDE RECORDS SUMMARY | 2024-08-19 15:50 | XMS_ITS | Encounter Summary ---
Author Organization [facility] Address [address] [place] [address] Care Team Providers Care Fabric And Accessories Estimator Name Role Phone Red Sam MD Primary Care Provider [phone] Red Sam MD Unavailable Encounter Details Date [...] Encounters Date Type Department Care Team (Late Contact Info) Description 10/23/2024 1:45 PM EDT [facility] [address] [place] [address] Red Sam MD [address] [place] [phone] documented as of this encounter Procedures Procedure Name Priority Date/Time Associated Diagnosis Comments FLUORO SMALL BOWEL 12/10/2023 10 :12 AM EDT documented in this encounter Results * FLUORO SMALL BOWEL (12/10/2023 10:12 AM EDT) Anatomical Region Laterality Modality Radiographic [place] ging 12/10/2023 10:1 2 AM EDT Narrative 12/10/2023 10:15 [place] [address] Fluoroscopy Report Signed Patient: DOC JONAS MR#: [id number] : 1985 Acct:[id number] Age/Sex: 38 / M ADM Date: 12/10/23 Loc: [place] Attending Dr: Arslan Maurice D.O. Ordering Physician: Arslan Maurice D.O. Date of Service: 12/10/23 Procedure(s): FL small bowel Accession Number(s): [id number] cc: Arslan Maurice D.O.; Red Sam M.D. [place] [address] Patient Name: DOC JONAS MRN: [id number] date: 1985 Sex: M [place]igned [place]: [place] Accession/Order Number: [id number] Exam Date: 12/10/2023 08:05 Report Date: 12/10/2023 10:12 At the request of: ARSLAN MAURICE Procedure: FL small bowel EXAMINATION: FL upper GI w air, FL [...] obstruction or visible lesion. OTHER: Negative. FL/FL small bowel IMPRESSION: 1. Prominent gastroesophageal reflux without appreciable damage to the esophagus, mass, or stricture. 2. Unremarkable stomach. 3. Unremarkable small bowel. Electronically authenticated by: JUJU CHRISTIANSON Date: 12/10/2023 10:12 Dictated By: Juju Christianson M.D. Signed By: 12/10/23 1015 DD/ 1012 TD/TT: Soubrette: Procedure Note Radiology, Radiologist, - 12/11/2023 [place] [address] Fluoroscopy Report Signed Patient: DOC JONAS [facility]#: [id number] : 1985Acct:[id number] Age/Sex: 38 / MADM Date: 12/10/23 Loc: [place] Att[place] Dr: Arslan Maurice D.O. Ordering Physician: Arslan Maurice D.O. Date of Service: 12/10/23 Procedure(s): FL small bowel Accession Number(s): [id number] cc: Arslan Maurice D.O.; Red Sam M.D. The [place] [address] Patient Name: DOC JONAS MRN: [id number] date: 1985 Sex: M [place]igned Patient [place]: [place] Accession/Order Number: [id number] Exam Date: 12/10/2023 08:05 Report Date: 12/10/2023 10:12 At the request of: ARSLAN MAURICE Procedure: FL small bowel EXAMINATION: FL upper GI w air, FL [...] obstruction or visible lesion. OTHER: Negative. FL/FL small bowel IMPRESSION: 1. Prominent gastroesophageal reflux without appreciable damage to the esophagus, mass, or stricture. 2. Unremarkable stomach. 3. Unremarkable small bowel. Electronically authenticated by: JUJU CHRISTIANSON Date: 12/10/2023 10:12 Dictated By: Juju Christianson M.D. Signed By:12/10/23 1015 DD/ 1012 TD/TT: Soubrette: us Arslan Maurice DO IMG XR PROCEDURES Final Result documented in this encounter Visit Diagnoses Not on filedocumented in this encounter Care Teams Fabric And Accessories Estimator Relationship Specialty Start Date End Date Red Sam MD [address] [place] [address] PCP - General Family Medicine 11/19/23 Red Sam MD [address] [place] [address] PCP - Arrey Elin 01/11/24 documented as of this encounter
--- OUTSIDE RECORDS SUMMARY | 2024-08-19 15:50 | XMS_ITS | Encounter Summary ---
Author Organization [facility] Address [address] [facility] [place] [address] Care Team Providers Care Street Contractor Name Role Phone Red Sam MD Primary Care Provider [phone] Red Sam MD Unavailable Encounter Details Date [...] 10/23/2024 1:45 PM EDT [facility] [address] [place] [address] Red Sam MD [address] [place] [phone] documented as of this encounter Procedures Procedure Name Priority Date/Time Associated Diagnosis Comments FL UPPER GI W AIR* 12/10/2023 10 :12 AM EDT documented in this encounter Results * FL UPPER GI W AIR* (12/10/2023 10:12 AM EDT) Anatomical Region Laterality Modality Radiographic [place] ging 12/10/2023 10:1 2 AM EDT Narrative 12/10/2023 10:15 [place] [address] Fluoroscopy Report Signed Patient: DOC JONAS MR#: [id number] : 1985 Acct:[id number] Age/Sex: 38 / M ADM Date: 12/10/23 Loc: [place] Attending Dr: Arslan Maurice D.O. Ordering Physician: Arslan Maurice D.O. Date of Service: 12/10/23 Procedure(s): FL upper GI w air Accession Number(s): [id number] cc: Arslan Maurice D.O.; Red Sam M.D. [place] [address] Patient Name: DOC JONAS MRN: [id number] date: 1985 Sex: M Assigned Patient Location: [place] Current Patient Location: [place] Accession/Order Number: [id number] Exam Date: 12/10/2023 08:05 Report Date: 12/10/2023 10:12 At the request of: ARSLAN MAURICE Procedure: FL upper GI w air EXAMINATION: FL upper GI w air, FL [...] obstruction or visible lesion. OTHER: Negative. FL/FL upper GI w air IMPRESSION: 1. Prominent gastroesophageal reflux without appreciable damage to the esophagus, mass, or stricture. 2. Unremarkable stomach. 3. Unremarkable small bowel. Electronically authenticated by: JUJU CHRISTIANSON Date: 12/10/2023 10:12 Dictated By: Juju Christianson M.D. Signed By: 12/10/23 1015 DD/ 1012 TD/TT: Stud Dairy Cattle Farmer: Procedure Note Radiology, Radiologist, - 12/10/2023 [place] [address] Fluoroscopy Report Signed Patient: DOC JONAS SMR#: [id number] : 1985Acct:[id number] Age/Sex: 38 / MADM Date: 12/10/23 Loc: [place] Attending Dr: Arslan Maurice D.O. Ordering Physician: Arslan Maurice D.O. Date of Service: 12/10/23 Procedure(s): FL upper GI w air Accession Number(s): [id number] cc: Arslan Maurice D.O.; Red Sam M.D. [place] [address] Patient Name: DOC JONAS MRN: [id number] date: 1985 Sex: M Assigned Patient Location: [place] Current Patient Location: [place] Accession/Order Number: [id number] Exam Date: 12/10/2023 08:05 Report Date: 12/10/2023 10:12 At the request of: ARSLAN MAURICE Procedure: FL upper GI w air EXAMINATION: FL upper GI w air, FL [...] obstruction or visible lesion. OTHER: Negative. FL/FL upper GI w air IMPRESSION: 1. Prominent gastroesophageal reflux without appreciable damage to the esophagus, mass, or stricture. 2. Unremarkable stomach. 3. Unremarkable small bowel. Electronically authenticated by: JUJU CHRISTIANSON Date: 12/10/2023 10:12 Dictated By: Juju Christianson M.D. Signed By:12/10/23 1015 DD/ 1012 TD/TT: Stud Dairy Cattle Farmer: Arslan Maurice DO IMG XR PROCEDURES Final Result documented in this encounter Visit Diagnoses Not on filedocumented in this encounter Care Teams Street Contractor Relationship Specialty Start Date End Date Red Sam MD [address] [place] [phone] PCP - General Family Medicine 11/19/23 Red Sam MD [address] [place] [address] PCP - [place] [employer] 01/11/24 documented as of this encounter
--- OUTSIDE RECORDS SUMMARY | 2024-08-19 15:50 | XMS_ITS | Encounter Summary ---
Author Organization [facility] Address [address] [place] [address] Care Team Providers Care Operation Shift Supervisor Name Role Phone Red Sam MD Primary Care Provider [phone] Red Sam MD Primary Care Provider [phone] Red Sam MD Unavailable Encounter Details Date Type Department Care Team (Late Contact Info) Description 01/22/2019 Abstract [facility] [address] [place] [address] Matilde Senior, [facility] [address] [place] [address] Social History Tobacco Use Types Packs/Day Years [...] 10/23/2024 1:45 PM EDT Office Visit [facility] [address] [place] [address] Red Sam MD [address] [place] [address] documented as of this encounter Visit Diagnoses Not on filedocumented in this encounter Care Teams Operation Shift Supervisor Relationship Specialty Start Date End Date Red Sam MD PCP - General Family Medicine 02/12/23 11/18/23 Red Sam MD [address] [place] [address] PCP - General Family Medicine 11/19/23 Red aSm MD [address] [place] [address] PCP - Sangeetha Wotrhington 01/11/24 documented as of this encounter
[2024-08-19 16:33] LABS: Alanine Aminotransferase 66 U/L (16-63); Albumin Level 3.5 g/dL (3.4-5.0); Alkaline Phosphatase 98 U/L (46-116); Aspartate Amino Transferase 28 U/L (15-37); Bilirubin Direct 0.1 mg/dL (0.0-0.2); Bilirubin Total 0.2 mg/dL (0.2-1.0); Chol HDL Ratio 4.2; Cholesterol 163 mg/dL (<=200); Globulin 3.4 g/dL; HDL Cholesterol 39 mg/dL (40-60); Total Protein 6.9 g/dL (6.4-8.2); Triglycerides 230 mg/dL (<=150)
== END 2024-08-19 15:48 | disposition home or self-care (01) ==
LOC: LAB 15:48
PROVIDERS: PCP Family Medicine; Visit Provider Family Medicine
DX: E78.5 Hyperlipidemia, unspecified (principal); Z79.899 Other long term (current) drug therapy
CPT/HCPCS: 36415; 80061; 80076

== ENCOUNTER 2024-11-26 11:14 | Outpatient (OUT) | payer BC, SELFPAY ==
--- OUTSIDE RECORDS SUMMARY | 2024-11-26 11:19 | XMS_ITS | Clinical Summary ---
Author Organization [facility] Address [address] [place] [address] Care Team Providers Care Sonoscope Operator Name Role Phone Red Sam MD Primary Care Provider [phone] Allergies Active Allergy Reactions Criticality Noted Date Comments Codeine Nausea And Vomiting Low 12/18/2007 Other Reaction(s): nausea and vomiting Medications hydrOXYzine HCl (Atarax) 25 MG tabletIndication s:INDIA (generalized anxiety disorder) Take 1 tablet (25 mg) by mouth 4 (four) times a day as needed for anxiety 30 tablet 2 4 Active pantoprazole (ProtoNix) 40 MG EC tabletIndication s:Gastroesophage al reflux disease without esophagitis TAKE 1 TABLET BY MOUTH IN THE MORNING AND AT NOON 180 tablet 2 5 Active Tirzepatide 2.5 MG/0.5ML solution auto-injectorInd ications:Class 3 severe obesity due to excess calories with serious comorbidity and body mass index (BMI) of 40.0 to 44.9 in adult (CMS-HCC) Inject 2.5 mg under the skin 1 (one) time per week 2 mL 1 5 Active FLUoxetine (PROzac) 20 MG capsuleIndicatio ns:Moderate major depression, single episode (HCC) Take 3 capsules (60 mg) by mouth Daily 90 capsule 3 5 Active atorvastatin (Lipitor) 40 MG tabletIndication s:Dyslipidemia TAKE 1 TABLET BY MOUTH AT BEDTIME 90 tablet 1 5 Active Active Problems Problem Noted Date Diagnosed Date [...] increase protonix. Moderate major depression, single episode 2023 Assessment & Plan (08/19/2024 3:28 PM EDT): [...] Encounters Date Type Department Care Team Description 10/07/2024 Refill [facility] [address] [facility] [place] [address] Red Sam MD Dyslipidemia from Last 3 Months Family History Medical History Relation Name Comments COPD Father Doc Mildner Diabetes Father Doc Mildkedar Heart failure Father Doc Mildner Hypertension Father Doc Mildner Hypertension Mother Jackie ford Relation Name Status [...] week 12/23/2023 How often do you attend [facility] or nondenominational services? More than 4 times per year 12/23/2023 Do you belong to any clubs o r organizations such as gnosticist groups, unions, fraternal or athletic groups, or [...] care, and heating? Not very hard 12/23/2023 [facility] Occupat ional Health - Occupational Stress [...] any time in the past 12 m [facility], were you homeless or living in a halfway (including now)? No 12/23/2023 Sex and Gender [...] 08/19/2024 2:46 PM EDT Plan of Treatment Health Maintenance Due Date Last Done Comments Influenza Vaccine (#1) 2024 Insurance [facility] Care Teams Sonoscope Operator Relationship Specialty Start Date End Date Red Sam MD PCP - General Family Medicine 11/19/23
--- OUTSIDE RECORDS SUMMARY | 2024-11-26 11:19 | XMS_ITS | Encounter Summary ---
Author Organization [facility] Address [address] [place] [address] Care Team Providers Care Structural Shop Helper Name Role Phone Red Sam MD Primary Care Provider [phone] Reason for Visit * Reason Onset Date Comments Med Refill 08/25/2024 Encounter Details Date Type Department Care Team (Late st Contact Info) Description 08/25/2024 Refill [facility] [address] [place] [address] Red Sam MD [address] [place] [address] Social History Tobacco Use Types Packs/Day Years [...] week 12/23/2023 How often do you attend [facility] or taoist services? More than 4 times per year 12/23/2023 Do you belong to any clubs o r organizations such as uatsdin groups, unions, fraternal or athletic groups, or [...] care, and heating? Not very hard 12/23/2023 [facility] - Occupational Stress Questionnaire Answer Date Recorded [...] any time in the past 12 m [facility], were you homeless or living in a alf (including now)? No 12/23/2023 Sex and Gender Information Value Date Recorded Sex Assigned at Not on file Legal Sex Male 9:28 PM EDT Gender Identity Not on file Sexual Orientation Not on file documented as of this encounter Plan of Treatment Not on file documented as of this encounter Visit Diagnoses Not on filedocumented in this encounter Care Teams Structural Shop Helper Relationship Specialty Start Date End Date Red Sam MD PCP - General Family Medicine 11/19/23 documented as of this encounter
--- OUTSIDE RECORDS SUMMARY | 2024-11-26 11:19 | XMS_ITS | Encounter Summary ---
Author Organization [facility] Address [address] [place] [address] Care Team Providers Care Machine Maintenance Name Role Phone Red Sam MD Primary Care Provider [phone] Red Sam MD Primary Care Provider [phone] Red Sam MD Unavailable Encounter Details Date Type Department Care Team (Late st Contact Info) Description 01/22/2019 Abstract [facility] [address] [place] [address] Matilde Senior, [facility] [address] [place] [address] Social History Tobacco Use Types Packs/Day Years [...] on filedocumented in this encounter Care Teams Machine Maintenance Relationship Specialty Start Date End Date Red Sam MD PCP - General Family Medicine 02/12/23 11/18/23 Red Sam MD PCP - General Family Medicine 11/19/23 Red Sam MD [address] [place] [address] [place] - Sangeetha Commercial 01/11/24 documented as of this encounter
--- OUTSIDE RECORDS SUMMARY | 2024-11-26 11:19 | XMS_ITS | Encounter Summary ---
Author Organization [facility] Address [address] [place] [address] Care Team Providers Care Veterinary Virus Serum Inspector Name Role Phone Red Sam MD Primary Care Provider [phone] Red Sam MD Unavailable Encounter Details Date [...] on file documented as of this encounter Procedures Procedure Name Priority Date/Time Associated Diagnosis Comments FLUORO SMALL BOWEL 12/10/2023 10 :12 AM EDT documented in this encounter Results * FLUORO SMALL BOWEL (12/10/2023 10:12 AM EDT) Anatomical Region Laterality Modality Radiographic [place] ging 12/10/2023 10:1 2 AM EDT Narrative 12/10/2023 10:15 AM EDT The [address] [address] Fluoroscopy Report Signed Patient: DOC JONAS MR#: [id number] : 1985 Acct:[id number] Age/Sex: 38 / M ADM Date: 12/10/23 Loc: [place] Attending Dr: Arslan Maurice D.O. Ordering Physician: Arslan Maurice D.O. Date of Service: 12/10/23 Procedure(s): FL small bowel Accession Number(s): [id number] cc: Arslan Maurice D.O.; Red Sam M.D. The [place] [address] Patient Name: DOC JONAS MRN: [id number] date: 1985 Sex: M Assigned Patient Location: [place] Current Patient Location: [place] Accession/Order Number: [id number] Exam Date: 12/10/2023 08:05 Report Date: 12/10/2023 [...] Signed By: 12/10/23 1015 DD/ 1012 TD/TT: Skirt Maker: Procedure Note Radiology, Radiologist, - 12/11/2023 [place] [address] Fluoroscopy Report Signed Patient: DOC JONAS SMR#: [id number] : 1985Acct:[id number] Age/Sex: 38 / MADM Date: 12/10/23 Loc: [place] Attending Dr: Arslan Maurice D.O. Ordering Physician: Arslan Maurice D.O. Date of Service: 12/10/23 Procedure(s): FL small bowel Accession Number(s): [id number] cc: Arslan Maurice D.O.; Red Sam M.D. [place] [address] Patient Name: DOC JONAS MRN: [id number] date: 1985 Sex: M Assigned Patient Location: [place] Current Patient Location: [place] Accession/Order Number: [id number] Exam Date: 12/10/2023 08:05 Report Date: 12/10/2023 [...] M.D. Signed By:12/10/23 1015 DD/ 1012 TD/TT: Skirt Maker: Arslan Maurice DO IMG XR PROCEDURES Final Result documented in this encounter Visit Diagnoses Not on filedocumented in this encounter Care Teams Veterinary Virus Serum Inspector Relationship Specialty Start Date End Date Red Sam MD PCP - General Family Medicine 11/19/23 Red Sam MD [address] [facility] [place] [address] PCP - Sangeetha Worthington 01/11/24 documented as of this encounter
--- OUTSIDE RECORDS SUMMARY | 2024-11-26 11:19 | XMS_ITS | Clinical Summary ---
Author Organization [facility] Address [id number] [place] [address] Care Team Providers Care Site Coordinator Name Role Phone Unavailable Primary Care Provider [...]
--- OUTSIDE RECORDS SUMMARY | 2024-11-26 11:19 | XMS_ITS | Clinical Summary ---
Author Organization [facility] Address [address] [place] [address] Care Team Providers Care Agricultural Education Instructor Name Role Phone Unavailable Primary Care Provider [...] N ot on file 02/19/2020 Data from: https://www.neighborhoodatlas.medicine.[facility].edu/. Last address used for calculation Not on [...] of 3 - 19+ 3-dose series) 07/20 HPV Vaccine (1 - 3-dose SCDM series) 07/20/2010 Lipid Screening 07/20/2018 Influenza Vaccine (#1) 2024 Insurance PPO OOS
--- OUTSIDE RECORDS SUMMARY | 2024-11-26 11:19 | XMS_ITS | Encounter Summary ---
Author Organization [facility] Address [address] [place] [address] Care Team Providers Care Core Rescuer Name Role Phone Red Sam MD Primary Care Provider [phone] Encounter Details Date Type Department Care Team (Late st Contact Info) Description 08/19/2024 Results Follow-Up [facility] [address] [place] [address] Red Sam MD [address] [facility] [place] [address] [facility] LIVER PANEL, ALL LIPID PROFILE (FASTING) Social History Tobacco Use Types Packs/Day Years [...] week 12/23/2023 How often do you attend [facility] or yazidi services? More than 4 times per year 12/23/2023 Do you belong to any clubs o r organizations such as voodoo groups, unions, fraternal or athletic groups, or [...] care, and heating? Not very hard 12/23/2023 [facility] of Occupat ional Health - Occupational Stress [...] any time in the past 12 m [facility], were you homeless or living [...] on filedocumented in this encounter Care Teams Core Rescuer Relationship Specialty Start Date End Date Red Sam MD PCP - General Family Medicine 11/19/23 documented as of this encounter
--- OUTSIDE RECORDS SUMMARY | 2024-11-26 11:19 | XMS_ITS | Encounter Summary ---
Author Organization [facility] Address [address] [place] [address] Care Team Providers Care Hardware Technician Name Role Phone Red Sam MD Primary Care Provider [phone] Red Sam MD Unavailable Encounter Details Date [...] EDT Narrative 12/10/2023 10:15 AM EDT The [address] [address] Fluoroscopy Report Signed Patient: DOC JONAS MR#: [id number] : 1985 Acct:[id number] Age/Sex: 38 / M ADM Date: 12/10/23 Loc: [place] Attending Dr: Arslan Maurice D.O. Ordering Physician: Arslan Maurice D.O. Date of Service: 12/10/23 Procedure(s): FL upper GI w air Accession Number(s): [id number] cc: Arslan Maurice D.O.; Red Sam M.D. The [place] [id number] Patient Name: DOC JONAS MRN: [id number] date: 1985 Sex: M Assigned Patient Location: [place] Current Patient Location: [place] Accession/Order Number: [id number] Exam Date: 12/10/2023 08:05 Report Date: 12/10/2023 [...] Signed By: 12/10/23 1015 DD/ 1012 TD/TT: Senior Research Manager: Procedure Note Radiology, Radiologist, MD - 12/10/2023 The [place] [id number] Fluoroscopy Report Signed Patient: DOC JONAS [facility]#: [id number] : 1985Acct:[id number] Age/Sex: 38 / MADM Date: 12/10/23 Loc: [place] Attending Dr: Arslan Maurice D.O. Ordering Physician: Arslan Maurice D.O. Date of Service: 12/10/23 Procedure(s): FL upper GI w air Accession Number(s): [id number] cc: Arslan Maurice D.O.; Red Sam M.D. The [place] [address] Patient Name: DOC JONAS MRN: [facility]:[id number] date: 1985 Sex: M Assigned Patient Location: [place] Current Patient Location: [place] Accession/Order Number: [id number] Exam Date: 12/10/2023 08:05 Report Date: 12/10/2023 [...] M.D. Signed By:12/10/23 1015 DD/ 1012 TD/TT: Senior Research Manager: Arslan Maurice DO IMG XR PROCEDURES Final Result documented in this encounter Visit Diagnoses Not on filedocumented in this encounter Care Teams Hardware Technician Relationship Specialty Start Date End Date Red Sam MD PCP - General Family Medicine 11/19/23 Red Sam MD [address] [place] [address] PCP - Sangeetha Worthington 01/11/24 documented as of this encounter
--- OUTSIDE RECORDS SUMMARY | 2024-11-26 11:19 | XMS_ITS | Encounter Summary ---
Author Organization [facility] Address [address] [place] [address] Care Team Providers Care Drapery And Upholstery Estimator Name Role Phone Red Sam MD Primary Care Provider [phone] Red Sam MD Unavailable Encounter Details Date [...] EDT Narrative 12/10/2023 10:15 AM EDT The [facility] [address] [place] [address] Fluoroscopy Report Signed Patient: DOC JONAS MR#: [id number] : 1985 Acct:[id number] Age/Sex: 38 / M ADM Date: 12/10/23 Loc: [place] Attending Dr: Arslan Maurice D.O. Ordering Physician: Arslan Maurice D.O. Date of Service: 12/10/23 Procedure(s): FL cineradiography Accession Number(s): [id number] cc: Arslan Maurice D.O.; Red Sam M.D. The [place] [id number] Patient Name: DOC JONAS MRN: [id number] date: 1985 Sex: M Assigned Patient Location: [place] Current Patient Location: [place] Accession/Order Number: [id number] Exam Date: 12/10/2023 08:05 Report Date: 12/10/2023 [...] Signed By: 12/10/23 1015 DD/ 1012 TD/TT: Cocoa Room Operator: Procedure Note Radiology, Radiologist, MD - 12/10/[address] [address] Fluoroscopy Report Signed Patient: DOC JONAS [facility]#: [id number] : 1985Acct:[id number] Age/Sex: 38 / MADM Date: 12/10/23 Loc: [place] Attending Dr: Arslan Maurice D.O. Ordering Physician: Arslan Maurice D.O. Date of Service: 12/10/23 Procedure(s): FL cineradiography Accession Number(s): [id number] cc: Arslan Maurice D.O.; Red aSm M.D. [place] [address] Patient Name: DOC JONAS MRN: [id number] date: 1985 Sex: M Assigned Patient Location: [place] Current Patient Location: [place] Accession/Order Number: [id number] Exam Date: 12/10/2023 08:05 Report Date: 12/10/2023 [...] M.D. Signed By:12/10/23 1015 DD/ 1012 TD/TT: Cocoa Room Operator: Arslan Maurice DO [facility] Final Result documented in this encounter Visit Diagnoses Not on filedocumented in this encounter Care Teams Drapery And Upholstery Estimator Relationship Specialty Start Date End Date Red Sam MD PCP - General Family Medicine 11/19/23 Red Sam MD [address] [place] [address] PCP - Sangeetha Worthington 01/11/24 documented as of this encounter
--- OUTSIDE RECORDS SUMMARY | 2024-11-26 11:19 | XMS_ITS | Clinical Summary ---
Author Organization [facility] Address [address], [address] [place] [address] Care Team Providers Care Front Desk Name Role Phone Unavailable Primary Care Provider [...] - 19+ 3-dose series) 07/20/2002 Lipids 2023 Flu vaccine (#1) 10/10/2024 COVID-19 Vaccine (1 - 2023-2 5 season) 2024 HPV vaccine (No Doses Required) Completed Hepatitis A vaccine Aged Out No longe [...]
--- OUTSIDE RECORDS SUMMARY | 2024-11-26 11:22 | XMS_ITS | CCD ---
Author Organization [facility] Care Team Providers Care Avionics Repair Technician Name Role Phone Sterling Marquez Unavailable DR RED ROBLES Primary Care Unavailable FAWWAD, VALLE H Admitting Unavailable KATE, VINAYA Consulting Unavailable FAWWAD, VALLE H Attending Unavailable FAWWAD, VALLE H Consulting Unavailable FAWWAD, VALLE H Attending Unavailable Wilber Canela Consulting Unavailable DR RED ROBLES Primary Care Unavailable FAWWAD, VALLE H Admitting Unavailable FAWWAD, VALLE H Consulting Unavailable DIETER ALVAREZ Attending Unavailable Red Robles MD Primary Care Provider DO Arslan Maurice Attending Provider Arslan Maurice Attending Unavailable Arslan Maurice Admitting Unavailable Red Robles MD Primary Care Provider Red Robles MD Unavailable RED ROBLES Attending Unavailable RED ROBLES Attending Unavailable ARSLAN MAURICE Attending Unavailable RED ROBLES Attending Unavailable RED ROBLES Attending Unavailable Red Robles MD Primary Care Provider Red Robles MD Attending Provider Allergies Allergy Classification Reported Allergen(s) Allergy Type Date of Onset Reaction(s) Facility (20 sources) Codeine Drug Allergy 8 nausea, Nausea And Vomiting [facility] Healthcare Work Phone: (1 source) Codeine Drug Allergy [facility] Repository (1 source) Codeine Drug Allergy 3 [facility] Repository Medications Current Medications Medication Drug Class(es) Dates Sig (Normalized) Sig (Original) acetaminophen 325 mg / HYDROcodone bitartrate 5 mg oral tablet (1 source) Opioid Agonist Start: 12-02-2020 take 0.5-1 tablets by mouth once daily as needed HYDROcodone-Acetam inophen 5-325 MG 1/2 - 1 tablet Orally once daily as needed for 30 days G89.29 Chronic pain Nov, Active atorvastatin 40 mg oral tablet (12 sources) HMG-CoA Reductase Inhibitor Start: 11-25-2024 take 1 tablet by mouth once daily at bedtime Atorvastatin 40 mg tablet Active 40 MG PO Daily at bedtime November 25, 2024 3:10pm Complies with drug therapy Start: 04-16-2024 take 1 tablet by ernie th at bedtime atorvastatin (Lipitor) 40 MG tablet Indications: Dyslipidemia (CMS/HCC) TAKE 1 TABLET BY MOUTH AT BEDTIME 90 tablet 1 04/16/2024 Active Start: 01-25-2021 End: 11-25-2024 take 1 tablet by mouth at bedtime atorvastatin (Lipitor) 40 MG tablet Indications: Dyslipidemia (CMS/HCC) Take 1 tablet (40 mg) by mouth at bedtime 30 tablet 5 12/26/2023 Active Start: 01-25-2021 Atorvastatin A ctive MG TABLET January 25, 2021 1:00am FLUoxetine 20 mg oral capsule (17 sources) Serotonin Reuptake Inhibitor Start: 11-25-2024 take 3 capsules by mouth once daily Fluoxetine 20 mg capsule Active 60 MG PO Daily November 25, 2024 12:00am Complies with drug therapy Start: 08-19-2024 take 3 capsules by m outh once daily FLUoxetine (PROzac) 20 MG capsule Indications: Moderate major depression, single episode (HCC) (CMS/HCC) Take 3 capsules (60 mg) by mouth Daily 90 capsule 3 08/19/2024 Active Start: 2024 End: 08-19-2024 take 1 capsule by mouth once daily FLUoxetine (PROzac) 40 MG capsule Indications: Moderate major depression, single episode (HCC) (CMS/HCC) TAKE 1 CAPSULE BY MOUTH EVERY DAY 90 capsule 1 2024 08/19/2024 Discontinued (Reorder) Start: 03-24-2024 take 1 capsule by mo uth once daily FLUoxetine (PROzac) 40 MG capsule Indications: Moderate major depression, single episode (HCC) (CMS/HCC) Take 1 capsule (40 mg) by mouth Daily 30 capsule 5 03/24/2024 Active Start: 12-24-2023 End: 03-24-2024 take 1 capsule by mouth once daily FLUoxetine (PROzac) 20 MG capsule Indications: Moderate major depression, single episode (HCC) (CMS/HCC) Take 1 capsule (20 mg) by mouth Daily 30 capsule 3 12/24/2023 03/24/2024 Discontinued (Reorder) hydrOXYzine hydrochloride 25 mg oral tablet (19 sources) Antihistamine Start: 11-25-2024 take 1 tablet by mouth four times daily as needed Hydroxyzine Hcl 25 mg tablet Active 25 MG PO Four times daily as needed November 25, 2024 12:00am Complies with drug therapy Start: 11-19-2023 take 1 tablet by ernie th four times daily as needed for anxiety hydrOXYzine HCl (Atarax) 25 MG tablet Indications: [place] (generalized anxiety disorder) (CMS/HCC) Take 1 tablet (25 mg) by mouth 4 (four) times a day as needed for anxiety 30 tablet 2 11/19/2023 Active ibuprofen 400 mg oral tablet (1 source) Nonsteroidal Anti-inflammatory Drug take 1 tablet by mouth three times daily at mealtime as needed Ibuprofen 400 MG 1 tablet with food or milk as needed Orally Three times a day Active pantoprazole 40 mg delayed release oral tablet (20 sources) Proton Pump Inhibitor Start: take 1 tablet by mouth in the morning Pantoprazole 40 mg tablet,delayed release (DR/EC) Active 40 MG PO As Directed November 25, 2024 12:00am Take one tablet by mouth in the morning and at noon Complies with drug therapy Start: 11-19-2023 End: 04-22-2024 take 1 tablet by mouth in the morning pantoprazole (ProtoNix) 40 MG EC tablet Indications: Gastroesophageal reflux disease without esophagitis TAKE 1 TABLET BY MOUTH IN THE MORNING AND AT NOON 180 tablet 2 04/22/2024 Active Tirzepatide 2.5 MG/0.5ML solution auto-injector (3 sources) Start: 08-19-2024 Tirzepatide 2. 5 MG/0.5ML solution auto-injector Indications: Class 3 severe obesity due to excess calories with serious comorbidity and body mass index (BMI) of 40.0 to 44.9 in adult Inject 2.5 mg under the skin 1 (one) time per week 2 mL 1 08/19/2024 Active Completed/Discontinued Medications Medication Drug Class(es) Dates Sig (Normalized) Sig (Original) cholecalciferol 0.05 mg oral tablet (12 sources) Vitamin D Start: 01-25-2021 End: 11-25-2024 Cholecalciferol (Vitamin D3) 50 mcg (2,000 unit) tablet Discontinued January 25, 2021 1:00am November 25, 2024 3:10pm Start: 01-25-2021 Cholecalcifero l (Vitamin D3) Active TABLET January 25, 2021 1:00am End: 12-24-2023 take 1 capsule by mouth once daily cholecalciferol (Vitamin D-3) 50 MCG (2000 UT) capsule Take 1 capsule by mouth 1 (one) time each day at the same time. 12/24/2023 Discontinued omeprazole 40 mg delayed release oral capsule (3 sources) Proton Pump Inhibitor Start: 01-25-2021 End: 11-25-2024 Omeprazole 40 mg capsule,delayed release(DR/EC) Discontinued MG January 25, 2021 1:00am November 25, 2024 3:11pm Start: 01-25-2021 Omeprazole Act dianna MG January 25, 2021 1:00am take 1 capsule by mo ut once daily Omeprazole 10 MG 1 capsule 30 minutes before morning meal Orally Once a day Active phentermine hydrochloride 37.5 mg oral tablet (7 sources) Sympathomimetic Amine Anorectic Start: 03-24-2024 End: 08-19-2024 take 38-38.9 tablets by mouth before mealtime phentermine (Adipex-P) 37.5 MG tablet Indications: Class 2 severe obesity due to excess calories with serious comorbidity and body mass index (BMI) of 38.0 to 38.9 in adult (CMS/HCC) Take 1 tablet (37.5 mg) by mouth in the morning. Take before meals. 30 tablet 04/22/2024 08/19/2024 Discontinued sertraline 25 mg oral tablet (8 sources) Serotonin Reuptake Inhibitor Start: 11-19-2023 End: 12-24-2023 take 1 tablet by mouth once daily sertraline (Zoloft) 25 MG tablet Indications: Moderate major depression, single episode (HCC) (CMS/HCC) Take 1 tablet (25 mg) by mouth Daily 30 tablet 3 11/19/2023 12/24/2023 Discontinued Tirzepatide (1 source) Start: 11-25-2024 End: 11-26-2024 Tirzepatide 2.5 mg/0.5 mL pen injector Discontinued 2.5 MG SUBCUT every week November 25, 2024 12:00am November 26, 2024 9:39am for 4 weeks Problems Active Problems Problem Classification Problem Date Documented Da te Episodic/Chronic Anxiety disorders (20 sources) Generalized anxiety disorder; Translations: [Generalized anxiety disorder] Onset: 4 11-19-2023 Chronic Disorders of lipid metabolism (20 sources) Hyperlipidemia; Translations: [Hyperlipidemia, unspecified] Onset: 8 02-06-2023 Chronic Esophageal disorders (20 sources) Gastroesophageal reflux disease without esophagitis; Translations: [Gastro-esophageal reflux disease without esophagitis] Onset: 4 11-19-2023 Chronic Malaise and fatigue (2 sources) Fatigue; Translations: [Other fatigue] 11-26-2024 Episodic Mood disorders (20 sources) Moderate major depression, single episode; Translations: [Major depressive disorder, single episode, moderate] Onset: 4 11-19-2023 Chronic Nervous system congenital anomalies (20 sources) Neurofibromatosis, unspecified; Translations: [Neurofibromatosis] Onset: 0 Chronic Other aftercare (11 sources) Long-term current use of drug therapy; Translations: [Other usp (current) drug therapy] Onset: 5 03-24-2024 Episodic Other ear and sense organ disorders (20 sources) Bilateral hearing loss; Translations: [Sensorineural hearing loss, unilateral, left ear, with restricted hearing on the contralateral side] Onset: 3 02-06-2023 Chronic Other ear and sense organ disorders (20 sources) Bilateral tinnitus; Translations: [Tinnitus, bilateral] Onset: 3 02-06-2023 Episodic Other gastrointestinal disorders (20 sources) Esophageal dysphagia; Translations: [Other dysphagia] Onset: 4 11-19-2023 Episodic Other gastrointestinal disorders (2 sources) Dysphagia; Translations: [Dysphagia, unspecified] 11-26-2023 Episodic Other nervous system disorders (20 sources) Chronic pain; Translations: [Other chronic pain] Onset: 3 Resolved: 3 02-06-2023 Chronic Other nervous system disorders (1 source) Other chronic pain Onset: 1 Resolved: 1 Chronic Other non-traumatic joint disorders (2 sources) Bilateral chronic pain of upper limbs; Translations: [Pain in right shoulder] 03-24-2024 Episodic Other non-traumatic joint disorders (8 sources) Pain in right shoulder; Translations: [Pain in joint, shoulder region] Onset: 5 03-24-2024 Episodic Other nutritional; endocrine; and metabolic disorders (9 sources) Body mass index 30+ - obesity; Translations: [Obesity, unspecified] Onset: 4 12-24-2023 Chronic Other nutritional; endocrine; and metabolic disorders (18 sources) Severe obesity; Translations: [Class 2 severe obesity due to excess calories with serious comorbidity and body mass index (BMI) of 38.0 to 38.9 in adult (CMS/[facility])] Onset: 4 03-24-2024 Chronic Other screening for suspected conditions (not mental disorders or infectious disease) (4 sources) Other abnormal findings on diagnostic imaging of central nervous system; Translations: [OTH 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 DX 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] Onset: 3 Episodic Spondylosis; intervertebral disc disorders; other back problems (5 sources) Solitary sacroiliitis; Translations: [Sacroiliitis, not elsewhere classified] Onset: 1 Resolved: 1 Chronic Spondylosis; intervertebral disc disorders; other back problems (20 sources) Low back pain; Translations: [Low back pain] Onset: 8 02-06-2023 Episodic Sprains and strains (1 source) Unspecified sprain of right wrist, initial encounter; Translations: [Unspecified sprain of right wrist, initial encounter] Onset: 3 Episodic Substance-related disorders (20 sources) Narcotic drug user; Translations: [Opioid use, unspecified, uncomplicated] Onset: 8 02-06-2023 Episodic Past or Other Problems Problem Classification Problem Date Documented Da te Episodic/Chronic Other aftercare (20 sources) Drug therapy finding; Translations: [Other long term care phlebotomist (current) drug therapy] Onset: 02-21-2019 02-06-2023 Episodic Other non-traumatic joint disorders (1 source) Pain in left shoulder Onset: 01-13-2021 Resolved: 01-13-2021 Episodic Results Test Name Value Interpretation Reference Range Facility ALL LIPID PROFILE (FASTING)o n 08-19-2024 CHOL HDL RATIO 4.2 [facility] Comment on above: 3.3 - 4.4 LOW RISK 4.4 - 7.1 AVERAGE RISK 7.1 - 11.0 MODERATE RISK >11.0 HIGH RISK Cholesterol [Mass/Vol] 163 mg/dL NINF - 200 mg/dL [facility] Cholesterol in HDL [Mass/Vol] 39 mg/dL Low 40 - 60 mg/dL [facility] Comment on above: > or =60 mg/dl - LOW CARDIOVASCULAR RISK <40 mg/dl - HIGH CARDIOVASCULAR RISK Magnesium [Mass/Vol] 78 mg/dL [facility] Comment on above: <100 mg/dl OPTIMAL 100-129 mg/dl NEAR OR ABOVE OPTIMAL 130-159 mg/dl BORDERLINE HIGH 160-189 mg/dl HIGH >190 mg/dl VERY HIGH Magnesium [Mass/Vol] 46 mg/dL [facility] Triglyceride [Mass/Vol] 230 mg/dL High NINF - 150 mg/dL [facility] LIVER PANELon 5 Albumin [Mass/Vol] 3.5 g/dL 3.4 - 5.0 g/dL [facility] ALBUMIN GLOBULIN RATIO 1 [facility] ALP [Catalytic activity/Vol] 98 U/L 46 - 116 U/L [facility] ALT [Catalytic activity/Vol] 66 U/L High 16 - 63 U/L [facility] AST [Catalytic activity/Vol] 28 U/L 15 - 37 U/L [facility] Bilirubin [Mass/Vol] 0.2 mg/dL 0.2 - 1.0 mg/dL [facility] Bilirubin.indirect [Mass/Vol] 0.1 mg/dL 0.0 - 0.2 mg/dL [facility] Globulin (S) [Mass/Vol] 3.4 g/dL [facility] Protein [Mass/Vol] 6.9 g/dL 6.4 - 8.2 g/dL [facility] No Panel Informationon 08-19 Interpretation and review of laboratory results Abnormal [facility] ALL CBC WITH AUTO DIFFon BASOPHILS ABSOLUTE AUTO 0.1 [facility] Basophils/100 WBC (Bld) 0.8 % 0.2 - 2.0 % [facility] Eosinophils/100 WBC (Bld) 2.4 % 0.9 - 7.0 % [facility] Erythrocyte distribution width (RBC) [Ratio] 13.3 % 11.0 - 15.0 % [facility] Hematocrit (Bld) [Volume fraction] 47.9 % 42.0 - 54.0 % [facility] Hemoglobin (Bld) [Mass/Vol] 15.8 g/dL 14.0 - 18.0 g/dL [facility] IMMATURE GRANULOCYTES ABS AUTO 0.12 High [facility] Immature granulocytes/100 WBC (Bld) 1.7 % High 0.0 - 0.5 % [facility] Interpretation and review of laboratory results Abnormal [facility] LYMPHOCYTES ABSOLUTE AUTO 1.6 [facility] Lymphocytes/100 WBC (Bld) 22 % 20.5 - 60.0 % [facility] MCH (RBC) [Entitic mass] 27.7 pg 25.9 - 34.0 pg [facility] MCHC (RBC) [Mass/Vol] 33 g/dL 29.9 - 35.2 g/dL [facility] MCV (RBC) [Entitic vol] 84 fL 80.0 - 94.0 fL [facility] Healthcare MONOCYTES ABSOLUTE AUTO 0.9 High [facility] Monocytes/100 WBC (Bld) 12.7 % High 1.7 - 12.0 % [facility] NEUTROPHILS ABSOLUTE AUTO 4.3 [facility] Neutrophils/100 WBC (Bld) 60.4 % 43.0 - 75.0 % [facility] Platelet mean volume (Bld) [Entitic vol] 9.9 fL 9.5 - 13.5 fL [facility] EO # 0.2 [facility] PLT 323 [facility] RBC 5.7 [facility] WBC 7.1 [facility] Pathology Request for Lab Co rpon 12-18-2023 Pathology Request for Lab Birgit Normal [facility] Comment on above: Order Comment: PATHO LOGY GI SPECIMEN Result Comment: See report. Scanned copy available in EMR. PERFORMED BY: [place] [address] PATHOLOGIST JOURNEYMAN MOLDER LISA ZAMORA M.D. Performed By: #### P ATH TO [facility] #### [address] XR ELBOW RIGHT (MIN 3 VIEWS) on [...] Kika Winkler MD 01/13/23 Final result Normal [facility] XR RADIUS ULNA RIGHT (2 VIEW [...] Kika Winkler MD 01/13/23 Final result Normal [facility] XR WRIST RIGHT (MIN 3 VIEWS) [...] Kika Winkler MD 01/13/23 Final result Normal [facility] MRI ORBIT WO W CONon 01-27-2 023 MRI ORBIT WO W CON Begin Addendum # 1 Addendum: Additional MRI images from 03/25/2010 have [...] the hypothalamus is not included in the coarq-rl-obsl on the coronal images. This masslike enlargement [...] and hypothalamus is not included in the vbrdu-cj-lgjk on most of the sequences (coronal plane). 2. Redemonstration of masslike enlargement of the hypothalamus. No associated contrast enhancement. 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 3. Stable T2 hyperintense lesion within the anterior medial left frontal lobe. There is evidence for solid enhancement. This is concerning for glioma given history of neurofibromatosis. Normal [facility] MRI BRAIN WO CONon 3 MRI BRAIN [...] by: DIETER SIDDIQUI Date: 2022-03-28 16:09 Normal [facility] Coding Summary.on 05-27-2019 Coding Summary. CODING DATE: 05/27/2019 FINAL [facility] STATUS: Home (Routine DC) PAYOR: [place] ADMIT DX: REASON FOR VISIT DX: Z30.8 [...] CphT Date Saved: 05/27/2019 01:37 pm Normal [facility] Semen Analysis PostVason Yvette/Transport Prob No Problems Normal [facility] Comment on above: Performed By: #### 2 [id number], [id number] #### [facility] [address] [place] [address] Other Comment: Order Added by Discern Expert. Collect. Meth Masturbation Normal [facility] Comment on above: Performed By: #### 2 [id number], [id number] #### [facility] [address] [place] [address] Other Comment: Order Added by Discern Expert. Days Abstained 1 day(s) Low 2-5 [facility] Comment on above: Performed By: #### 2 [id number], [id number] #### [facility] [address] [place] [address] Other Comment: Order Added by Discern Expert. Post Vas Screen No Sperm Seen Normal <=0 [facility] Comment on above: Result Comment: A Co ncentration Technique is used to confirm any semen which is azospermic (no sperm seen). Performed By: #### 2 [id number], [id number] #### [facility] [address] [place] [address] Other Comment: Order Added by Discern Expert. Spec. Container Steril Container Normal [facility] Comment on above: Performed By: #### 2 [id number], [id number] #### [facility] [address] [place] [address] Other Comment: Order Added by Discern Expert. Spec. Temp 22 DegC Normal 20-37 [facility] Comment on above: Performed By: #### 2 [id number], [id number] #### [facility] [address] [place] [address] Other Comment: Order Added by Discern Expert. Sperm Count 0 Million/mL Low >=20 [facility] Comment on above: Result Comment: A Co ncentration Technique is used to evaluate all sperm counts <20 million. Performed By: #### 2 [id number], [id number] #### [facility] [address] [place] [address] Other Comment: Order Added by Discern Expert. Sperm Morphon 05-26-2019 Sperm Morph No sperm identified (A concentration technique is used to evaluate this specimen). Inflammatory cells present. [facility] Comment on above: Order Comment: Order Added by Discern Expert. Performed By: #### 2 [id number], [id number] #### [facility] [address] [place] [address] Other Comment: Order Added by Discern Expert. Sperm Morph No sperm identified (A concentration technique is used to evaluate this specimen). Inflammatory cells present. ICD10 Z30.9 [facility] Comment on above: Order Comment: Order Added by Discern Expert. Performed By: #### 2 [id number], [id number] #### [facility] [address] [place] [address] Other Comment: Order Added by Discern Expert. CNOVon 05-13-2019 CNOV Office Visit (NEPNMN ) SUMIDOC Valentine ([id number]) 1985 M Date Time Provider Department 05/13/19 2:50 PM Natalee ZELAYA NEPMNN During your visit today, we recorded the following information about you: Pulse Blood pressure Weight Height 78/minute 135/67 71.8 kg 1.524 m Luis Zelaya MD 05/13/2019 3:38 PM Signed PEDIATRIC NEUROLOGY FOLLOW-UP Dear Dr. Ruddy Tejada, I had the pleasure of evaluating Doc Valentine Sumi in the pediatric neurology clinic on 05/13/2019 [...] Medications: Current Outpatient Medications Medication Sig - HYDROcodone-acetaminop hen (NORCO) 5-325 mg per tablet Take 1 tablet by mouth as needed. No current facility-administered medications for this visit. Medication side effects: None Interval History: Since last visit No hospitalizations, operations, or significant illnesses/injuries. 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 Has not seen a peanut cleaner or had an echo. Has not seen financial agent in a while; last time in 2010. He reports numbness in hands and feet. Also notes lower back pain for which he occasionally takes Rico. Pain is worsened on prolonged sitting or standing. 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 MRI spine showed multiple tumors. Patient also has multiple vele-bo-uepl hawley and neurofibromas.No problems using his limbs or walking. Denies bowel/bladder or sexual issues. Neurofibromas are not growing rapidly, hurting spontaneously or getting hard. Got 2 removed a few months ago and wants one on his back removed too (pain on light touch). Headaches: Occur almost daily. Takes Motrin for them. New Neurological Symptoms: None. REVIEW OF SYSTEMS: Skin: multiple cwzj-ct-qdgo hawley and neurofibromas (torso and scalp) Eyes: [...] Neurofibromatosis type 1: back pain, numbness hands/feet, hjzz-yr-udfv hawley, neurofibromas Headaches: daily Care plan, management, [...] the plan of care documented above Luis Morin Attestation: By signing my name below, I, Pedro Oscar, attest that this documentation has been prepared under the direction and in the presence of Luis Zelaya MD. Electronically Signed: Mikel Davis. May 13, 2019 2:35 PM. Provider Attestation: I, Luis Zelaya MD, personally performed the services described in [...] Reason For Visit History Recorded Primary Visit Diagnosis:Neurofibroma tosis, type 1 (von Recklinghausen's disease) ([facility]) [Q85.01] Prescriptions as of 05/13/2019 Sig: HYDROCODONE 5 MG-ACETAMINOPHE* Take 1 tablet by mouth as nee* Problem List As Of Date: 05/13/2019 (None) Encounter Status:Closed by Natalee ZELAYA MD on 05/13/[address] [facility] PROGRESSon 05-13-2019 PROGRESS HNO ID: [id number] Author: Natalee Zelaya Service: ? Author Type: [...] Medications: Current Outpatient Medications Medication Sig - HYDROcodone-acetaminop hen (NORCO) 5-325 mg per tablet Take 1 tablet by mouth as needed. No current facility-administered medications for this visit. Medication side effects: None Interval History: Since last visit No hospitalizations, operations, or significant illnesses/injuries. 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 Has not seen a peanut cleaner or had an echo. Has not seen financial agent in a while; last time in 2010. He reports numbness in hands and feet. Also notes lower back pain for which he occasionally takes Rico. Pain is worsened on prolonged sitting or standing. 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 MRI spine showed multiple tumors. Patient also has multiple eyqg-tv-vwwe hawley and neurofibromas.No problems using his limbs or walking. Denies bowel/bladder or sexual issues. Neurofibromas are not growing rapidly, hurting spontaneously or getting hard. Got 2 removed a few months ago and wants one on his back removed too (pain on light touch). Headaches: Occur almost daily. Takes Motrin for them. New Neurological Symptoms: None. REVIEW OF SYSTEMS: Skin: multiple qhji-zt-ixkj hawley and neurofibromas (torso and scalp) Eyes: [...] Neurofibromatosis type 1: back pain, numbness hands/feet, roqn-ru-oglj hawley, neurofibromas Headaches: daily Care plan, management, [...] of care documented above Luis Zelaya MD Scribe Attestation: By signing my name below, I, Pedro Moore, attest that this documentation has been prepared under the direction and in the presence of Luis Zelaya MD. Electronically Signed: Mikel Davis. May 13, 2019 2:35 PM. Provider Attestation: I, Luis Zelaya MD, personally performed the services described in this documentation. All medical record entries made by the scribe were at my direction and in my presence. I have reviewed the chart and discharge instructions (if applicable) and agree that the record reflects my personal performance and is accurate and complete. Electronically Signed: Luis Zelaya MD. May 13, 2019 3:37 PM Normal [facility] CNOVon 11-12-2018 CNOV Office Visit (NEPNMN ) DOC JONAS ([id number]) 1985 M Date Time Provider Department 11/12/18 [...] none recently Current Medications: Current Outpatient Medications: HYDROcodone-acetaminop hen (NORCO) 5-325 mg per tablet Take 1 [...] for Visit: Established Patient [175] Primary Visit Diagnosis:Neurofibroma tosis, type 1 (von Recklinghausen's disease) ([facility]) [Q85.01] Prescriptions as of 11/12/2018 Sig: HYDROCODONE 5 MG-ACETAMINOPHE* Take 1 tablet by mouth as nee* Problem List As Of Date: 11/12/2018 (None) Disposition: Return in about 6 months (around 05/13/2019). Follow-up and Disposition History Recorded Encounter Status:Closed by Natalee ZELAYA MD on 11/12/18 Normal [facility] PROGRESSon 11-12-2018 PROGRESS HNO ID: [id number] Author: Natalee Zelaya Service: ? Author Type: [...] none recently Current Medications: Current Outpatient Medications: HYDROcodone-acetaminop hen (NORCO) 5-325 mg per tablet Take 1 [...] documented above Luis Zelaya MD [facility] CNOVon 06-04-2018 CNOV Office Visit (NEPNMN ) DOC JONAS ([id number]) 1985 M Date Time Provider Department 06/04/18 1:00 PM Natalee ZELAYA During your visit today, we recorded the following information about you: Pulse Blood pressure Weight Height 74/minute 134/71 80.7 kg 1.524 m Luis Zelaya MD 06/04/2018 2:04 PM Signed Dear I had the pleasure of evaluating Doc [...] Unknown States nausea Operations: No Hospitalizations/SI: Yes: orin---8 yrs ago Current Medications: Current Outpatient Medications: HYDROcodone-acetaminop hen (NORCO) 5-325 mg per tablet Take 1 [...] Headache Status Headache Description-occas hunt, not signif1. 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 Problem List As Of Date: 06/04/2018 (None) Disposition: Return in about 6 months (around 12/05/2018). Follow-up and Disposition History Recorded Encounter Status:Closed by Natalee ZELAYA MD on 06/04/18 Normal [facility] PROGRESSon 06-04-2018 PROGRESS HNO ID: [id number] Author: Natalee Zelaya Service: ? Author Type: [...] yrs ago Current Medications: Current Outpatient Medications: HYDROcodone-acetaminop hen (NORCO) 5-325 mg per tablet Take 1 [...] appetite and activity Eyes: No-last eye exam 2007Ears: No Respiratory: No Cardiovascular: No Gastrointestinal: No Urinary: No Menses: N/A Musculoskeletal: No Skin: Yes: calm Neurological: See Headache Status Headache Description-occas hunt, not signif1. [id number]} edx was made at age 22, no [...] Luis Zelaya MD Staff Pediatric Neurologist Normal [facility] Vital Signs Date Time Vital Sign Value Performing Clinician Facility 11-26-2024 09:37-0400 Body height 152.4 cm Red Robles MD Work Phone: [facility] 11-26-2024 09:37-0400 Body mass index (BMI) [Ratio] 41 kg/m2 Red Robles MD Work Phone: [facility] 11-26-2024 09:37-0400 Body temperature 978 [degF] Red Robles MD Work Phone: [facility] 11-26-2024 09:37-0400 Body weight 95.25 kg Red Robles MD Work Phone: [facility] 11-26-2024 09:37-0400 Diastolic blood pressure 88 mm[Hg] Red Robles MD Work Phone: [facility] 09-17-2025 09:37-0400 Heart rate 55 /min Red Robles MD Work Phone: [facility] 11-26-2024 09:37-0400 Respiratory rate 16 /min Red Robles MD Work Phone: [facility] 11-26-2024 09:37-0400 SaO2% (BldA) [Mass fraction] 99 % Red Robles MD Work Phone: [facility] 11-26-2024 09:37-0400 Systolic blood pressure 136 mm[Hg] Red Robles MD Work Phone: [facility] 08-19-2024 14:46-0400 Body height 152.4 cm Red Robles MD Work Phone: [facility] 08-19-2024 14:46-0400 Body mass index (BMI) [Ratio] 41.6 kg/m2 Red Robles MD Work Phone: [facility] 08-19-2024 14:46-0400 Body temperature 98.4 [degF] Red Robles MD Work Phone: [facility] 08-19-2024 14:46-0400 Body weight 96.62 kg Red Robles MD Work Phone: [facility] 08-19-2024 14:46-0400 Diastolic blood pressure 78 mm[Hg] Red Robles MD Work Phone: [facility] 08-19-2024 14:46-0400 Heart rate 95 /min Red Robles MD Work Phone: [facility] 08-19-2024 14:46-0400 Respiratory rate 18 /min Red Robles MD Work Phone: [facility] 08-19-2024 14:46-0400 SaO2% (BldA) [Mass fraction] 96 % Red Robles MD Work Phone: [facility] 08-19-2024 14:46-0400 Systolic blood pressure 144 mm[Hg] Red Robles MD Work Phone: [facility] 03-24-2024 08:21-0500 Body height 152.4 cm Red Robles MD Work Phone: [facility] 03-24-2024 08:21-0500 Body mass index (BMI) [Ratio] 38.86 kg/m2 Red Robles MD Work Phone: [facility] 03-24-2024 08:21-0500 Body temperature 98.71 [degF] Red Robles MD Work Phone: [facility] 03-24-2024 08:21-0500 Body weight 90.27 kg Red Robles MD Work Phone: [facility] 03-24-2024 08:21-0500 Diastolic blood pressure 70 mm[Hg] Red Robles MD Work Phone: [facility] 03-24-2024 08:21-0500 Heart rate 76 /min Red Robles MD Work Phone: [facility] 03-24-2024 08:21-0500 Respiratory rate 20 /min Red Robles MD Work Phone: [facility] 03-24-2024 08:21-0500 SaO2% (BldA) [Mass fraction] 98 % Red Robles MD Work Phone: [facility] 03-24-2024 08:21-0500 Systolic blood pressure 130 mm[Hg] Red Robles MD Work Phone: [facility] 12-24-2023 13:27-0400 Body height 152.4 cm Red Robles MD Work Phone: [facility] 12-24-2023 13:27-0400 Body mass index (BMI) [Ratio] 39.26 kg/m2 Red Robles MD Work Phone: [facility] 12-24-2023 13:27-0400 Body temperature 97.81 [degF] Red Robles MD Work Phone: [facility] [employer] 12-24-2023 13:27-0400 Body weight 91.17 kg Red Robles MD Work Phone: [facility] 12-24-2023 13:27-0400 Diastolic blood pressure 92 mm[Hg] Red Robles MD Work Phone: [facility] 12-24-2023 13:27-0400 Heart rate 94 /min Red Robles MD Work Phone: [facility] 12-24-2023 13:27-0400 Respiratory rate 18 /min Red Robles MD Work Phone: [facility] 12-24-2023 13:27-0400 SaO2% (BldA) [Mass fraction] 98 % Red Robles MD Work Phone: [facility] 12-24-2023 13:27-0400 Systolic blood pressure 140 mm[Hg] Red Robles MD Work Phone: [facility] [employer] 11-26-2023 11:35-0400 Body height 152.4 cm [employer] Work Phone: [facility] [employer] 11-26-2023 11:35-0400 Body mass index (BMI) [Ratio] 37.89 kg/m2 [employer] DO Work Phone: [facility] [employer] 11-26-2023 11:35-0400 Body weight 88 kg Arslan [employer] Work Phone: [facility] [employer] 11-26-2023 11:35-0400 Heart rate 70 /min [employer]slan [employer] DO Work Phone: [facility] [employer] 11-26-2023 11:35-0400 Respiratory rate 16 /min Arslan [employer] DO Work Phone: [facility] 11-26-2023 11:35-0400 SaO2% (BldA) [Mass fraction] 96 % [employer] Work Phone: [facility] [employer] 11-19-2023 13:32-0400 Body height 152.4 cm Red Robles MD Work Phone: [facility] 11-19-2023 13:32-0400 Body mass index (BMI) [Ratio] 37.89 kg/m2 Red Robles MD Work Phone: [facility] 11-19-2023 13:32-0400 Body temperature 97.81 [degF] Red Robles MD Work Phone: [facility] 11-19-2023 13:32-0400 Body weight 88 kg Red Robles MD Work Phone: [facility] 11-19-2023 13:32-0400 Diastolic blood pressure 78 mm[Hg] Red Robles MD Work Phone: [facility] 11-19-2023 13:32-0400 Heart rate 83 /min Red Robles MD Work Phone: [facility] 11-19-2023 13:32-0400 Respiratory rate 16 /min Red Robles MD Work Phone: [facility] 11-19-2023 13:32-0400 SaO2% (BldA) [Mass fraction] 98 % Red Robles MD Work Phone: [facility] 11-19-2023 13:32-0400 Systolic blood pressure 130 mm[Hg] Red Robles MD Work Phone: [facility] 01-13-2021 15:00-0400 Body weight 82.83 kg Sterling Marquez Other [employer] Other 01-13-2021 15:00-0400 Diastolic blood pressure 86 mm[Hg] Sterling Marquez Other [employer] Other 01-13-2021 15:00-0400 SaO2% (BldA) [Mass fraction] 98 % Sterling Marquez Other [employer] Other 01-13-2021 15:00-0400 Systolic blood pressure 130 mm[Hg] Sterling Marquez Other [facility] [employer] Other Encounters Encounter Date Encounter Type Care Provider Facility Start: 11-26-2024 End: 11-26-2024 ambulatory Red Robles MD Work Phone: [facility] Work Phone: Start: 11-26-2024 End: 11-26-2024 Patient encounter procedure Red Robles MD -[facility] Work Phone: Start: 08-19-2024 End: 08-19-2024 Office outpatient visit 25 minutes Red Robles MD Work Phone: [facility] Comment on above: Moderate major depre ssion, single episode (HCC) (CMS/HCC) (Primary Dx); INDIA (generalized anxiety disorder) (CMS/HCC); Dyslipidemia (CMS/HCC); Class 3 severe obesity due to excess calories with serious comorbidity and body mass index (BMI) of 40.0 to 44.9 in adult; Neurofibromatosis, type 1 (CMS/HCC) Start: 08-19-2024 End: 08-19-2024 ambulatory RED ROBLES Not Available Start: 08-19-2024 End: 08-19-2024 Bamboo flowsheet Red Robles MD Work Phone: [facility] Start: 08-19-2024 End: 08-19-2024 Bamboo flowsheet Red Robles MD Work Phone: [facility] Start: 08-19-2024 End: 08-19-2024 Clinisync Result Encounter Red Robles MD Work Phone: [facility] Unsolicited Start: 04-22-2024 End: 04-22-2024 Refill Red Robles MD Work Phone: [facility] Comment on above: Gastroesophageal ref lux disease without esophagitis; Class 2 severe obesity due to excess calories with serious comorbidity and body mass index (BMI) of 38.0 to 38.9 in adult ([facility]/HCC) Start: 03-24-2024 End: 03-24-2024 Bamboo flowsheet Red Robles MD Work Phone: [facility] Start: 03-24-2024 End: 03-24-2024 Bamboo flowsheet Red Robles MD Work Phone: [facility] Start: 03-24-2024 End: 03-24-2024 Office outpatient visit 25 minutes Red Robles MD Work Phone: [facility] Comment on above: Moderate major depre ssion, single episode (HCC) ([facility]) (Primary Dx); INDIA (generalized anxiety disorder) ([facility]); Dyslipidemia ([facility]); Class 2 severe obesity due to excess calories with serious comorbidity and body mass index (BMI) of 38.0 to 38.9 in adult ([facility]); Encounter for long-term current use of medication; Chronic pain of both shoulders Start: 03-24-2024 End: 03-24-2024 ambulatory RED ROBLES Not Available Start: 12-26-2023 End: 12-26-2023 Clinisync Result Encounter Red Robles MD Work Phone: [facility] External Department Unsolicited Start: 12-26-2023 End: 12-26-2023 Clinisync Result Encounter Red Robles MD Work Phone: [facility] External Department Unsolicited Start: 12-26-2023 End: 12-26-2023 Orders Only Red Robles MD Work Phone: [facility] Comment on above: Dyslipidemia (CMS/HC C) (Primary Dx) Start: 12-24-2023 End: 12-24-2023 Bamboo flowsheet Red Robles MD Work Phone: [facility] Start: 12-24-2023 End: 12-24-2023 Bamboo flowsheet Red Robles MD Work Phone: [facility] Start: 12-24-2023 End: 12-24-2023 Office outpatient visit 15 minutes Red Robles MD Work Phone: [facility] Comment on above: Moderate major depre ssion, single episode (HCC) ([facility]/HCC) (Primary Dx); INDIA (generalized anxiety disorder) ([facility]); Annual physical exam; Gastroesophageal reflux disease without esophagitis; Obesity (BMI 30-39.9); Body mass index (BMI) 37.0-37.9, adult Start: 12-24-2023 End: 12-24-2023 Patient encounter procedure Red Robles MD Work Phone: [facility] Healthcare Start: 12-24-2023 End: 12-24-2023 ambulatory RED ROBLES Not Available Start: 12-18-2023 End: 12-18-2023 ambulatory Arslan [facility] Work Phone: Start: 12-18-2023 End: 12-18-2023 Departed Referred DO Arslan Maurice Work Phone: [facility] Start: 11-26-2023 End: 11-26-2023 Bamboo flowsheet Arslan Maurice DO Work Phone: [facility] Start: 11-26-2023 End: 11-26-2023 Bamboo flowsheet Arslan Maurice DO Work Phone: [facility] Start: 11-26-2023 End: 11-26-2023 Office outpatient new 45 minutes Arslan Maurice DO Work Phone: [facility] Comment on above: Dysphagia, unspecifi ed type (Primary Dx) Start: 11-26-2023 End: 11-26-2023 ambulatory ARSLAN MAURICE Not Available Start: 11-19-2023 End: 11-19-2023 Bamboo flowsheet Red Robles MD Work Phone: [facility] Start: 11-19-2023 End: 11-19-2023 Bamboo flowsheet Red Robles MD Work Phone: [facility] Start: 11-19-2023 End: 11-19-2023 Office outpatient visit 25 minutes Red Robles MD Work Phone: [facility] Comment on above: Esophageal dysphagia (Primary Dx); Gastroesophageal reflux disease without esophagitis; Moderate major depression, single episode (HCC) (CMS/HCC); INDIA (generalized anxiety disorder) ([facility]/HCC); Neurofibromatosis, type 1 (CMS/HCC) Start: 11-19-2023 End: 11-19-2023 ambulatory RED ROBLES Not Available Start: 04-16-2023 Chart abstracting Tawana rodriguez MD Work Phone: [facility] Start: 01-13-2023 End: 01-13-2023 Emergency department patient visit [facility] Start: 04-03-2022 End: 04-04-2022 ambulatory SHAIKH Josh NAVARRO Facility:[facility] Start: 03-27-2022 End: 03-28-[address] RED ROBLES Facility:[facility] Start: 01-13-2021 End: 01-13-2021 ambulatory Sterling Marquez Other [employer] Other Start: 01-13-2021 Office outpatient vi sit 25 minutes Sterling Marquez [facility] Procedures Date Procedure Procedure Detail Performing Clinician Start: 08-19-2024 ALL LIPID PROFILE (FASTING) Red Robles MD Work Phone: Start: 08-19-2024 [facility] LIVER PANEL Red fabian MD Work Phone: Start: 12-26-2023 ALL CBC WITH AUTO DIFF Red Robles MD Work Phone: Plan of Treatment Date Care Activity Detail Author Start: 11-10-2024 Influenza vaccination Influenz a Vaccine (Season Ended) [facility] Start: 10-23-2024 End: 10-23-2024 Patient encounter procedure 10/23/2024 1:45 PM EDT Office Visit [facility] [address] [place] [address] Red Robles MD [address] [place] [phone] [facility] Start: 08-19-2024 End: 08-19-2024 Patient encounter procedure 08/19/2024 2:30 PM EDT Office Visit [facility] [address] [place] [address] Red Robles MD [address] [place] [phone] Arrived [facility] Comment on above: Arrived Start: 04-28-2024 End: 04-28-2024 Patient encounter procedure 04/28/2024 2:00 PM EST Office Visit [facility] [address] [place] [address] Red Robles MD [address] [place] [address] [facility] Start: 03-24-2024 End: 03-24-2025 Hepatic function 2000 panel - Serum or Plasma Hepatic function panel Lab Routine Encounter for long-term current use of medication Expected: 03/24/2024 (Approximate), Expires: 03/24/2025 [facility] Comment on above: Expected: 03/24/2024 (Approximate), Expires: 03/24/2025 Start: 03-24-2024 End: 03-24-2025 Lipid 1996 panel - Serum or Plasma Lipid panel Lab Routine Dyslipidemia (CMS/HCC) Expected: 03/24/2024 (Approximate), Expires: 03/24/2025 [facility] Work Phone: Comment on above: Expected: 03/24/2024 (Approximate), Expires: 03/24/2025 Start: 03-24-2024 End: 03-24-2024 Patient encounter procedure 03/24/2024 8:15 AM EST Office Visit [facility] [address] [place] [address] Red Robles MD [address] [place] [phone] Arrived [facility] Comment on above: Arrived Start: 02-04-2024 End: 02-04-2024 Patient encounter procedure 02/04/2024 1:45 PM EST Office Visit [facility] [address] [place] [address] Red Robles MD [address] [place] [address] [facility] Start: 12-24-2023 End: 12-23-2024 Basic metabolic 1998 panel - Serum or Plasma Basic metabolic panel Lab Routine Annual physical exam Expected: 12/24/2023 (Approximate), Expires: 12/23/2024 [facility] Comment on above: Expected: 12/24/2023 (Approximate), Expires: 12/23/2024 Start: 12-24-2023 End: 12-23-2024 CBC W Auto Differential panel - Blood CBC and differential Lab Routine Annual physical exam Expected: 12/24/2023 (Approximate), Expires: 12/23/2024 [facility] Comment on above: Expected: 12/24/2023 (Approximate), Expires: 12/23/2024 Start: 12-24-2023 End: 12-23-2024 Hemoglobin A1c/Hemoglobin.total in Blood Hemoglobin A1c Lab Routine Annual physical exam Expected: 12/24/2023 (Approximate), Expires: 12/23/2024 [facility] Work Phone: Comment on above: Expected: 12/24/2023 (Approximate), Expires: 12/23/2024 Start: 12-24-2023 End: 12-23-2024 Hepatic function 2000 panel - Serum or Plasma Hepatic function panel Lab Routine Annual physical exam Expected: 12/24/2023 (Approximate), Expires: 12/23/2024 [facility] Comment on above: Expected: 12/24/2023 (Approximate), Expires: 12/23/2024 Start: 12-24-2023 End: 12-23-2024 Lipid 1996 panel - Serum or Plasma Lipid panel Lab Routine Annual physical exam Expected: 12/24/2023 (Approximate), Expires: 12/23/2024 [facility] Comment on above: Expected: 12/24/2023 (Approximate), Expires: 12/23/2024 Start: 12-24-2023 End: 12-23-2024 Prostate specific Ag [Mass/volume] in Serum or Plasma PSA Lab Routine Annual physical exam Expected: 12/24/2023 (Approximate), Expires: 12/23/2024 [facility] Comment on above: Expected: 12/24/2023 (Approximate), Expires: 12/23/2024 Start: 12-24-2023 End: 12-23-2024 Thyrotropin [Units/volume] in Serum or Plasma TSH Lab Routine Annual physical exam Expected: 12/24/2023 (Approximate), Expires: 12/23/2024 [facility] Comment on above: Expected: 12/24/2023 (Approximate), Expires: 12/23/2024 Start: 12-24-2023 End: 12-24-2023 Patient encounter procedure [facility] Comment on above: Arrived Start: 12-18-2023 [facility] Start: 11-26-2023 End: 11-25-2024 RF Upper gastrointestinal tract and Small bowel Single view W contrast PO FL upper GI double contrast w KUB Imaging Routine Dysphagia, unspecified type Expected: 11/26/2023, Expires: 11/25/2024 [facility] Work Phone: Comment on above: Expected: 11/26/2023 , Expires: 11/25/2024 Start: 11-26-2023 End: 11-26-2023 Patient encounter procedure 11/26/2023 11:15 AM EDT Office Visit [facility] [address] [place] [address] [place] [address] Arslan Maurice DO [address] [place] [address] Arrived [facility] Comment on above: Arrived Start: 11-19-2023 End: 11-19-2023 Patient encounter procedure 11/19/2023 1:30 PM EDT Office Visit [facility] [address] [place] [address] Red Robles MD [address] [place] [address] Arrived [facility] Comment on above: Arrived Start: 11-11-2023 Influenza vaccination Influenza Vacc ine (#1) [facility] Start: 04-16-2023 End: 04-16-2023 Clinical Support [facility] Start: 11-10-2022 Influenza vaccination Influenza Vacc ine (#1) [facility] Payers Date Payer Category Payer Self-pay [id number] [id number] 2018 Unknown [id number] 2018 [facility] BCBS [id number] 2018 Unknown BCBS BCBS xxxxxx [id number] 2018-Present [phone] [address] [place] [address] [id number] 1983 Unknown [id number] [id number]. 2.593 1983 Unknown [id number] [id number]. 2.593 1983 Unknown [id number] [id number]. 2.174 1983 Unknown [id number] [id number]. 2.9 1983 Unknown [id number] [id number]. 2.9 1983 Unknown [id number] [id number]. 2.9 1983 Unknown [id number] [id number]. 2.9 1983 Unknown [id number] [id number]. 2.[address] [id number] Unknown [id number]. 2.531 Social History Date Type Detail Facility Start: 02-12-2023 End: 12-23-2023 Sex Assigned At [facility] Start: 02-06-2023 End: 11-26-2024 Tobacco smoking status [facility] Never smoked tobacco [facility] Start: 02-06-2023 Tobacco use and exposure Smoke less tobacco non-user [facility] Start: 02-12-2023 End: 08-19-2024 Alcohol intake Lifetime non-drinker (finding) [facility] Start: 02-12-2023 End: 12-23-2023 History of Social function [facility] Start: 02-10-2023 Alcohol Comment caffeine intak e: 1-2 cups per day [facility] Start: 1985 Sex Assigned At Not on file [facility] Start: 1985 Sex Assigned At Male F [facility] How often do you nee d to have someone help you when you read instructions, pamphlets, or other written material from your doctor or pharmacy [SILS] Never [facility] Do you belong to any clubs or organizations such as uatsdin groups, unions, fraternal or athletic groups, or school groups? Yes [facility] Are you now , , , , never or living with a partner? [facility] How often to you hav e a drink containing alcohol? Never [facility] How hard is it for y ou to pay for the very basics like food, housing, medical care, and heating Not very hard [facility] Do you feel stress - tense, restless, nervous, or anxious, or unable to sleep at night because your mind is troubled all the time - these days [OSQ] To some extent [facility] (I/We) worried wheth er (my/our) food would run out before (I/we) got money to buy more. Sometimes true [facility] In the past 12 month s, was there a time when you were not able to pay the mortgage or rent on time? No [facility] Sex Male (finding) [facility] Clinical Notes 01-13-2021 to 11-10-2024 Note Date & Type Note Facility 11-10-2024 Evaluation note Diagnosis Onset Date Resolution Class 3 severe obesity due to excess calories with serious comorbidity and acute November 26, 2024 8:58am Encounter for long-term (current) use of medications acute November 26, 2024 8:58am Fatigue acute November 8:58am INDIA (generalized anxiety disorder) acute November 8:58am GERD without esophagitis acute November 26, 2024 8:58am Moderate major depression, single episode acute November 26, 2024 8:58am Neurofibromatosis, type 1 acute November 26, 2024 8:58am [facility] Work Phone: 1(295) 125-696406-10-2025 History of Present illness Narrative* Red Robles MD - 08/19/2024 3:29 PM EDTAssociated Problem(s): Neurofibromatosis, type 1 (CMS/HCC) Follow with neurology. * Red Robles MD - 08/19/2024 3:28 PM EDTAssociated Problem(s): Moderate major depression, single episode (HCC) (CMS/HCC) Symptoms worse and increase prozac. Warned will take 2-3 weeks to notice improvement in mood. * Red Robles MD - 08/19/2024 3:28 PM EDTAssociated Problem(s): INDIA (generalized anxiety disorder) (CMS/HCC) Symptoms worse and increase prozac. Warned will take 2-3 weeks to notice improvement in mood. * Red Robles MD - 08/19/2024 3:27 PM EDTAssociated Problem(s): Dyslipidemia (CMS/HCC) Repeat labs. * Red Robles MD - 08/19/2024 3:27 PM EDTAssociated Problem(s): Class 3 severe obesity due to excess calories with serious comorbidity and body mass index (BMI) of 40.0 to 44.9 in adult Continues to gain weight. Discussed diet and exercise. Try tirzepatide. * Red Robles MD - 08/19/2024 2:30 PM EDT Images [...] 2.5 MG/0.5ML solution auto-injector documented in this encounterSouthPointe [id number] Telephone encounter Note* Telephone Encounter - Red Robles MD - 04/22/2024 6:26 PM EST [facility] [id number] Miscellaneous Notes* Telephone Encounter - Red Robles MD - 04/22/2024 6:26 PM EST documented in this encounterSouthPointe [id number] History of Present illness Narrative* Red Robles MD - 03/24/2024 9:05 AM ESTAssociated Problem(s): Bilateral shoulder pain Pain over AC joint. Handout with ROM exercises. Use motrin PRN. * Red Robles MD - 03/24/2024 9:04 AM ESTAssociated Problem(s): Moderate major depression, single episode (HCC) (CMS/HCC) Symptoms improved with prozac but still present and increase dose. * Red Robles MD - 03/24/2024 9:04 AM ESTAssociated Problem(s): INDIA (generalized anxiety disorder) (CMS/HCC) Symptoms improved with prozac but still present and increase dose. Use hydroxyzine PRN. * Red Robles MD - 03/24/2024 9:04 AM ESTAssociated Problem(s): Class 2 severe obesity due to excess calories with serious comorbidity and body mass index (BMI) of 38.0 to 38.9 in adult (CMS/HCC) Patient overweight and difficult time losing weight. [...] month. OARRS reviewed. Continue medications as prescribed. * Red Robles MD - 03/24/2024 8:15 AM EST Images from the original note were not included. Subjective Patient ID: Doc Jonas is a 38 y.o. male who presents for Weight Loss (Looking for something tohelp lose weight) and Shoulder Pain. Follow up depression, anxiety, and weight. Changed to prozac last visit and mood improved. Not as down or sad and feels happier. Interacting well with others. Anxiety stable. Not as stressed out or overwhelmed. Not as nervous or worry as much. Not as garcia or irritable. Tolerating medication without side effects. Still occasional symptoms and feels like room for improvement. C/o bilateral shoulder pain for past several weeks. Pain with lifting or raising arms. Not limiting activity. Not tried OTC. Wants to lose weight. Started exercising few days a week. Tries to watch diet and eat healthy. Increased fruits and vegetables. Smaller portions and limits snacking. Tries to limit total daily calories. Requests medication. Review of Systems Constitutional: Negative for fatigue. [...] Problem List Items Addressed This Visit Dyslipidemia ([facility]/HCC) Relevant Orders Lipid panel Moderate major depression, single episode (HCC) ([facility]) - Primary Symptoms improved with prozac but still present and increase dose. Relevant Medications FLUoxetine (PROzac) 40 MG capsule INDIA (generalized anxiety disorder) ([facility]) Symptoms improved with prozac but still present and increase dose. Use hydroxyzine PRN. Class 2 severe obesity due to excess calories with serious comorbidity and body mass index (BMI) of38.0 to 38.9 in adult ([facility]) Patient overweight and difficult time losing weight. [...] month. OARRS reviewed. Continue medications as prescribed. Relevant Medications phentermine (Adipex-P) 37.5 MG tablet Encounter for long-term current use of medication Relevant Orders Hepatic function panel Bilateral shoulder pain Pain over AC joint. Handout with ROM exercises. Use motrin PRN. documented in this encounterSouthPointe [id number] History of Present illness Narrative* Red Robles MD - 12/24/2023 2:07 PM EDTAssociated Problem(s): Obesity (BMI 30-39.9) Weight loss indicated. * Red Robles MD - 12/24/2023 2:06 PM EDTAssociated Problem(s): Gastroesophageal reflux disease without esophagitis Follow with surgeon. * Red Robles MD - 12/24/2023 2:05 PM EDTAssociated Problem(s): INDIA (generalized anxiety disorder) ([facility]/HCC) Continued symptoms and minimal improvement with zoloft and stop. Try prozac and warned will take 2-3 weeks to notice improvement in mood. Use hydroxyzine PRN. * Red Robles MD - 12/24/2023 2:05 PM EDTAssociated Problem(s): Moderate major depression, single episode (HCC) (CMS/HCC) Continued symptoms and minimal improvement with zoloft and stop. Try prozac and warned will take 2-3 weeks to notice improvement in mood. * Red Robles MD - 12/24/2023 1:30 PM EDT Images from the original note were not included. Subjective Patient ID: Doc Jonas is a 38 y.o. male who presents for Follow-up (1 m). Follow up depression and anxiety. Started zoloft last visit and minimal change in symptoms. Continues to have depression and down, sad, and no motivation. Not want to do anything or be around others.Severe anxiety. Nervous and worry all the time. Stressed out and overwhelmed. Thought racing and hard to clear mind. Garcia, irritable and snapping at others. Easily upset and overreact. C/o sedation from hydoxyzine but using at bedtime and helps sleep. Review of Systems Constitutional: Negative for fatigue. [...] Assessment/Plan Problem List Items Addressed This Visit Moderate major depression, single episode (HCC) (CMS/HCC) - Primary Continued symptoms and minimal improvement with zoloft and stop. Try prozac and warned will take 2-3 weeks to notice improvement in mood. Relevant Medications FLUoxetine (PROzac) 20 MG capsule INDIA (generalized anxiety disorder) (CMS/HCC) Continued symptoms and minimal improvement with zoloft and stop. Try prozac and warned will take 2-3 weeks to notice improvement in mood. Use hydroxyzine PRN. Annual physical exam Relevant Orders Hemoglobin A1c Basic metabolic panel CBC and differential Hepatic function panel Lipid panel PSA TSH documented in this encounterSouthPointe [id number] History of Present illness Narrative* Arslan Maurice DO - 11/26/2023 11:15 AM EDT General Surgery H&P Doc Jonas 1985 Doc Jonas is a 38 y.o. male presents with chief complaint of GERD (Pt presents today for an egd consult. He states that roughly 6 months ago when he would eat it would feel like food would get stuck in his throat. He states that he gets really bad acid reflux as well and he is currently Protonix and he states that it does help.) Denies hx of excessive weight loss. Denies fevers, chills, or sweats. Denies nausea or vomiting. Discussed surgery and risks for EGD with possible biopsies procedure. Patient would like to proceed with surgery. Discussed need for UGI as well. Possible manometry depending on EGD/UGI. SUBJECTIVE: MEDICATIONS: ALLERGIES Current Outpatient Medications Medication Instructions cholecalciferol (Vitamin D-3) 50 MCG (1999) capsule 1 capsule, Oral, Every 24 hours hydrOXYzine HCl (ATARAX) 25 mg, Oral, 4 times daily PRN pantoprazole (PROTONIX) 40 mg, Oral, 2 times daily (10/21) sertraline (ZOLOFT) 25 mg, Oral, Daily Allergies Allergen Reactions Codeine Nausea And Vomiting Other Reaction(s): nausea and vomiting PAST MEDICAL HISTORY: SOCIAL HISTORY SURGICAL HISTORY: Past Medical History: Diagnosis Date Back pain COVID-19 01/2020 Headache Hearing loss unspecified hearing loss type, unspecified laterality Heartburn Hypercholesterolemia (CMS/HCC) MRSA (methicillin resistant Staphylococcus aureus) hospitalized years ago Neurofibromatosis (CMS/HCC) Other chronic pain 02/06/2023 Social History Tobacco Use Smoking status: Never Smokeless tobacco: Never Substance Use Topics Alcohol use: Never Comment: caffeine intake: 1-2 cups per day Drug use: Never Past Surgical History: Procedure Laterality Date VASECTOMY Family History Problem Relation Name Age of Onset Hypertension Mother Jackie jonas Hypertension Father Doc Jonas Heart failure Father Doc Jonas Diabetes Father Doc Mildkedar COPD Father Doc Mildkedar Allergies Allergen Reactions Codeine Nausea And Vomiting Other Reaction(s): nausea and vomiting Past Surgical History: Procedure Laterality Date VASECTOMY Tobacco Use: Low Risk (11/26/2023) Patient History Smoking Tobacco Use: Never Smokeless Tobacco Use: Never Passive Exposure: Not on file Alcohol Use: Not At Risk (01/13/2023) Received from [facility] AUDIT-C Frequency of Alcohol Consumption: Never Average Number of Drinks: Patient does not drink Frequency of Binge Drinking: Never Depression: Not on file Physical Activity: Not on file REVIEW OF SYMPTOMS: Review of Systems All other systems reviewed and are negative. 10 systems were reviewed. Positives noted above. Remainder are negative per CMS guidelines OBJECTIVE: Visit Vitals Pulse 70 Resp 16 Ht 5' Wt 194 lb SpO2 96% BMI 37.89 kg/m Smoking Status Never BSA 1.93 m Physical Exam Vitals reviewed. General: AAOx3, NAD Head: atraumatic normocephalic Neck: trachea midline. No masses or lymphadenopathy Heart: Regular rate and rhythm Lungs: equal chest rise and fall, non labored breathing Abdomen: soft, nontender, and non distended Ext: motor 5/5 all extremities with no gross deformities Psych: alert and oriented, behavior appropriate ASSESSMENT AND PLAN: Assessment/Plan Diagnoses and all orders for this visit: Hiatal hernia - FL upper GI double contrast w KUB; Future Patient informed of the risks of EGD with possible biopsies procedure which include but not limitedto bleeding, scarring, damage to nearby structures, chronic pain, wound healing issues, possible need for more procedures and risks of anesthesia. Patient understood risks and signed informed consent. Will schedule at patient's earliest convenience. Follow up UGI imaging. Thank you, Torito Maurice DO documented in this encounterSouthPointe [id number] History of Present illness Narrative* Red Robles MD - 11/19/2023 2:06 PM EDTAssociated Problem(s): Neurofibromatosis, type 1 (CMS/HCC) Follow with neurology. * Red Robles MD - 11/19/2023 2:06 PM EDTAssociated Problem(s): Moderate major depression, single episode (HCC) (CMS/HCC) Severe symptoms and not functioning well. Start zoloft and warned will take 2-3 weeks to notice improvement in mood. * Red Robles MD - 11/19/2023 2:06 PM EDTAssociated Problem(s): Gastroesophageal reflux disease without esophagitis Uncontrolled reflux and increase protonix. * Red Robles MD - 11/19/2023 2:06 PM EDTAssociated Problem(s): INDIA (generalized anxiety disorder) (CMS/HCC) Severe symptoms and not functioning well. Start zoloft and warned will take 2-3 weeks to notice improvement in mood. Start hydroxyzine PRN. * Red Robles MD - 11/19/2023 2:05 PM EDTAssociated Problem(s): Esophageal dysphagia Feels like food sticking and uncontrolled reflux. Refer to surgeon for EGD. * Red Robles MD - 11/19/2023 1:30 PM EDT Images from the original note were not included. Subjective Patient ID: Doc Jonas is a 38 y.o. male who presents for Choking (Food feels like it gets stuck when swallowing.), Heartburn, and Anxiety. C/o dysphagia over the past few months. Feels like food getting stuck and discomfort in chest. No problems swallowing but feels like stuck in chest. Symptoms worse with breads and meats. No problems with liquids. History of GERD and severe symptoms. Taking protonix daily. Frequent epigastric pain and burning. Frequently waking up with reflux. Taking tums in addition to protonix. C/o severe depression and anxiety. Down, sad, and no motivation. Not want to do things or be around others. Not want to leave house. Severe anxiety. Severe stress and not handling well. Nervous and worry all the time.Stressed out and overwhelmed. Thought racing and hard to clear mind. Garcia, irritable and snapping at others. Easily upset and overreact. Starting to have anxiety attacks with SOB and heart racing. Never on medication for mental health. Review of Systems Constitutional: Negative for fatigue. [...] Assessment/Plan Problem List Items Addressed This Visit Neurofibromatosis, type 1 (CMS/HCC) Follow with neurology. Esophageal dysphagia - Primary Feels like food sticking and uncontrolled reflux. Refer to surgeon for EGD. Relevant Orders Ambulatory referral to General Surgery Gastroesophageal reflux disease without esophagitis Uncontrolled reflux and increase protonix. Relevant Medications pantoprazole (ProtoNix) 40 MG EC tablet Other Relevant Orders Ambulatory referral to General Surgery Moderate major depression, single episode (HCC) (CMS/HCC) Severe symptoms and not functioning well. Start zoloft and warned will take 2-3 weeks to notice improvement in mood. Relevant Medications sertraline (Zoloft) 25 MG tablet INDIA (generalized anxiety disorder) (CMS/HCC) Severe symptoms and not functioning well. Start zoloft and warned will take 2-3 weeks to notice improvement in mood. Start hydroxyzine PRN. Relevant Medications hydrOXYzine HCl (Atarax) 25 MG tablet documented in this encounterSouthPointe [id number] Evaluation note* Encounter Date Diagnosis Assessment Notes Treatment Notes Treatment Clinical Notes Jan, Lumbosacral spondylosis (ICD-10 - M47.817) [...] (ICD-10 - G89.29) Continue medications as prescribed Asthmatracker Other Evaluation noteNo assessment information available [facility] Work Phone: Evaluation note* Diagnosis Esophageal dysphagia- Primary Dysphagia, pharyngoesophageal phase Gastroesophageal reflux disease without esophagitis Esophageal reflux Moderate major depression, single episode (HCC) (CMS/HCC) Major depressive disorder, single episode, moderate INDIA (generalized anxiety disorder) (CMS/HCC) Generalized anxiety disorder Neurofibromatosis, type 1 (CMS/HCC) Neurofibromatosis, 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, single episode (HCC) (CMS/HCC)- Primary Major depressive disorder, single episode, moderate INDIA (generalized anxiety disorder) (CMS/HCC) Generalized anxiety disorder Annual physical exam Routine general medical examination at a health care facility Gastroesophageal reflux disease without esophagitis Esophageal reflux Obesity (BMI 30-39.9) Body mass index (BMI) 37.0-37.9, adult documented in this encounter [facility] HealthcareEvaluation note* Diagnosis Esophageal dysphagia- Primary Dysphagia, pharyngoesophageal phase Gastroesophageal reflux disease without esophagitis Esophageal reflux Moderate major depression, single episode (HCC) (CMS/HCC) Major depressive disorder, single episode, moderate INDIA (generalized anxiety disorder) (CMS/HCC) Generalized anxiety disorder Neurofibromatosis, type 1 (CMS/HCC) Neurofibromatosis, 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, single episode (HCC) (CMS/HCC)- Primary Major depressive disorder, single episode, moderate INDIA (generalized anxiety disorder) (CMS/HCC) Generalized anxiety disorder Annual physical exam Routine general medical examination at a health care facility Gastroesophageal reflux disease without esophagitis Esophageal reflux Obesity (BMI 30-39.9) Body mass index (BMI) 37.0-37.9, adult Dyslipidemia ([facility])- Primary Other and unspecified hyperlipidemia documented in this encounter [facility] HealthcareEvaluation note* Diagnosis Dysphagia, unspecified type- Primary documented in this encounter [facility] HealthcareEvaluation note* Diagnosis Esophageal dysphagia- Primary Dysphagia, pharyngoesophageal phase Gastroesophageal reflux disease without esophagitis Esophageal reflux Moderate major depression, single episode (HCC) ([facility]) Major depressive disorder, single episode, moderate INDIA (generalized anxiety disorder) ([facility]) Generalized anxiety disorder Neurofibromatosis, type 1 ([facility]) Neurofibromatosis, Type 1 (von Recklinghausen's disease) documented in this encounter [facility] HealthcareEvaluation note* Diagnosis Esophageal dysphagia- Primary Dysphagia, pharyngoesophageal phase Gastroesophageal reflux disease without esophagitis Esophageal reflux Moderate major depression, single episode (HCC) ([facility]) Major depressive disorder, single episode, moderate INDIA (generalized anxiety disorder) ([facility]) Generalized anxiety disorder Neurofibromatosis, type 1 ([facility]) Neurofibromatosis, 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, single episode (HCC) ([facility])- Primary Major depressive disorder, single episode, moderate INDIA (generalized anxiety disorder) ([facility]) Generalized anxiety disorder Annual physical exam Routine general medical examination at a health care facility Gastroesophageal reflux disease without esophagitis Esophageal reflux Obesity (BMI 30-39.9) Body mass index (BMI) 37.0-37.9, adult Moderate major depression, single episode (HCC) ([facility])- Primary Major depressive disorder, single episode, moderate INDIA (generalized anxiety disorder) ([facility]) Generalized anxiety disorder Dyslipidemia ([facility]) Other and unspecified hyperlipidemia Class 2 severe obesity due to excess calories with serious comorbidity and body mass index (BMI) of 38.0 to 38.9 in adult ([facility]) Encounter for long-term current use of medication Chronic pain of both shoulders documented in this encounter [facility] HealthcareEvaluation note* Diagnosis Esophageal dysphagia- Primary Dysphagia, pharyngoesophageal phase Gastroesophageal reflux disease without esophagitis Esophageal reflux Moderate major depression, single episode (HCC) ([facility]) Major depressive disorder, single episode, moderate INDIA (generalized anxiety disorder) ([facility]) Generalized anxiety disorder Neurofibromatosis, type 1 ([facility]) Neurofibromatosis, 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, single episode (HCC) ([facility])- Primary Major depressive disorder, single episode, moderate INDIA (generalized anxiety disorder) ([facility]) Generalized anxiety disorder Annual physical exam Routine general medical examination at a health care facility Gastroesophageal reflux disease without esophagitis Esophageal reflux Obesity (BMI 30-39.9) Body mass index (BMI) 37.0-37.9, adult Moderate major depression, single episode (HCC) ([facility])- Primary Major depressive disorder, single episode, moderate INDIA (generalized anxiety disorder) ([facility]) Generalized anxiety disorder Dyslipidemia ([facility]) Other and unspecified hyperlipidemia Class 2 severe obesity due to excess calories with serious comorbidity and body mass index (BMI) of 38.0 to 38.9 in adult ([facility]) Encounter for long-term current use of medication Chronic pain of both shoulders Gastroesophageal reflux disease without esophagitis Esophageal reflux Class 2 severe obesity due to excess calories with serious comorbidity and body mass index (BMI) of 38.0 to 38.9 in adult ([facility]) documented in this encounter [facility] HealthcareEvaluation note* Diagnosis Esophageal dysphagia- Primary Dysphagia, pharyngoesophageal phase Gastroesophageal reflux disease without esophagitis Esophageal reflux Moderate major depression, single episode (HCC) ([facility]) Major depressive disorder, single episode, moderate INDIA (generalized anxiety disorder) ([facility]) Generalized anxiety disorder Neurofibromatosis, type 1 ([facility]) Neurofibromatosis, 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, single episode (HCC) ([facility])- Primary Major depressive disorder, single episode, moderate INDIA (generalized anxiety disorder) ([facility]) Generalized anxiety disorder Annual physical exam Routine general medical examination at a health care facility Gastroesophageal reflux disease without esophagitis Esophageal reflux Obesity (BMI 30-39.9) Body mass index (BMI) 37.0-37.9, adult Moderate major depression, single episode (HCC) ([facility])- Primary Major depressive disorder, single episode, moderate INDIA (generalized anxiety disorder) ([facility]) Generalized anxiety disorder Dyslipidemia ([facility]) Other and unspecified hyperlipidemia Class 2 severe obesity due to excess calories with serious comorbidity and body mass index (BMI) of 38.0 to 38.9 in adult ([facility]) Encounter for long-term current use of medication Chronic pain of both shoulders Moderate major depression, single episode (HCC) (CMS/HCC)- [...] (von Recklinghausen's disease) documented in this encounter [facility] HealthcareHistory general Narrative - Reported* Type Description Date Medical History neurofibromatosis type 1 Medical History neuropathy bue and ble Asthmatracker Other Reason for referral (narrative)* Consultation (Routine) - Pending Review Specialty Diagnoses / Procedures Referred By Natalie cristobal Referred To Contact General Surgery Diagnoses Esophageal dysphagia Gastroesophageal reflux disease without esophagitis Procedures MO OFFICE/OUTPATIENT [facility] MDM 60 MINUTES Red Robles MD [address] [place] [address] Arslan Maurice DO [address] [facility] [address] [place] [address] Referral ID Status Reason Start Date Expiration Date Visits Requested Visits Authorized [id number] Pending Review Specialty Services Required 11/19/2023 05/17/2024 1 1 [facility] (narrative)No reason for referral information availableMer[facility] Work Phone: Summary Purpose Family History Relationship Condition Age at Onset Recorded Date/T clint father Heart disease Unknown Advance Directives Advance Directive Response Recorded Date/ Time Advance Directives No May 24 1:16pm Chief Complaint and Reason for Visit Chief Complaint Admit Date Established Patient November 26, 2024 8:58am Reason for Visit Admit Date Class 3 severe obesity due t o excess calories with serious comorbidity and November 26, 2024 8:58am Encounter for long-term (current) use of medications November 26, 2024 8:58am Fatigue November 26, 2024 8:58am INDIA (generalized anxiety disorder) [place] mber 2024 8:58am GERD without esophagitis November 26, 2024 8:58am Moderate major depression, single episod e November 26, 2024 8:58am Neurofibromatosis, type 1 November 8:58am Additional Source Comments (unrecognized sect ion and content) No Status Records FoundNo Status Records FoundNo Status Records FoundNo Status Records FoundNo Status Records FoundNo Status Records Found INFORMATION SOURCE (unrecogn ized section and content) DATE CREATED AUTHOR 05/13/2019 [facility] DATE CREATED AUTHOR AUTHOR'S ORGANIZ ATION 04/23/2020 [facility] DATE CREATED AUTHOR AUTHOR'S ORGANIZ ATION 04/08/2022 [facility] DATE CREATED AUTHOR AUTHOR'S ORGANIZ ATION 01/14/2023 [facility] DATE CREATED AUTHOR AUTHOR'S ORGANIZ ATION 12/26/2023 [facility] DATE CREATED AUTHOR AUTHOR'S ORGANIZ ATION 08/21/2024 [facility] EPIC REASON FOR VISIT (unrecogniz ed section and content) Reason Comments Follow-up 1 m Reason Comments GERD Pt presents today fo r an egd consult. He states that roughly 6 months ago when he would eat it would feel like food would get stuck in his throat. He states that he gets really bad acid reflux as well and he is currently Protonix and he states that it does help. Reason Comments Choking Food feels like it g ets stuck when swallowing. Heartburn Anxiety Reason Comments Weight Loss Looking for somethin g tohelp lose weight Shoulder Pain Reason Comments Med Change Request Reason Comments Follow-up Check up Care Teams (unrecognized sec tion and content) Avionics Repair Technician Relationship Specialty Start Date End Date Red Robles MD PCP - General Family Medicine 02/12/23 Team Status: Inactive Member Role Status Dates Arslan Maurice DO Attending Provider Active Star t: December 18, 2023 End: December 18, 2023 Avionics Repair Technician Relationship Specialty Start Date End Date Red Robles MD [address] [place] [address] PCP - General Family Medicine 11/19/23 Avionics Repair Technician Relationship Specialty Start Date End Date Red Robles MD [address] [place] [address] PCP - General Family Medicine 11/19/23 Avionics Repair Technician Relationship Specialty Start Date End Date Red Robles MD [address] [place] [address] PCP - General [facility] 11/19/23 Avionics Repair Technician Relationship Specialty Start Date End Date Red Robles MD [address] [place] [address] PCP - General [facility] 11/19/23 Avionics Repair Technician Relationship Specialty Start Date End Date Red Robles MD [address] [place] [address] PCP - General [facility] 11/19/23 Avionics Repair Technician Relationship Specialty Start Date End Date Red Robles MD [address] [place] [address] PCP - General [facility] 11/19/23 Avionics Repair Technician Relationship Specialty Start Date End Date Red Robles MD [address] [place] [address] PCP - General [facility] 11/19/23 Avionics Repair Technician Relationship Specialty Start Date End Date Red Robles MD [address] [place] [address] PCP - General Family Medicine 11/19/23 Avionics Repair Technician Relationship Specialty Start Date End Date Red Robles MD [address] [place] [address] PCP - General Family Medicine 11/19/23 Red Robles MD [address] [place] [address] PCP - [place] [employer] 01/11/24 Avionics Repair Technician Relationship Specialty Start Date End Date Red Robles MD [address] [place] [address] PCP - General Family Medicine 11/19/23 Red Robles MD [address] [place] [address] PCP - [place] [employer] 01/11/24 Avionics Repair Technician Relationship Specialty Start Date End Date Red Robles MD [address] [place] [address] PCP - General Family Medicine 11/19/23 Red Robles MD [address] [place] [address] PCP - [place] [employer] 01/11/24 Avionics Repair Technician Relationship Specialty Start Date End Date Red Robles MD [address] [place] [address] PCP - General Family Medicine 11/19/23 Avionics Repair Technician Relationship Specialty Start Date End Date Red Robles MD [address] [place] [address] PCP - General Family Medicine 11/19/23 Avionics Repair Technician Relationship Specialty Start Date End Date Red Robles MD [address] [place] [phone] PCP - General Family Medicine 11/19/23 Team Status: Active Member Role Status Dates Red Robles MD Primary Care Provider Active Team Status: Inactive Member Role Status Dates Red Robles MD Primary Care Provider Active S tart: November 26, 2024 End: November 26, 2024 Red Robles MD Attending Provider Active Star t: November 26, 2024 End: November 26, 2024 Goals (unrecognized section and content) Goals may [...] BE BASED ON THE PRIMARY CLINICAL RECORDS. [facility]. provides no warranty or guarantee of the accuracy or completeness of information in this document.
[2024-11-26 11:58] LABS: Hematocrit 46.2 % (42.0-54.0); Hemoglobin 15.3 g/dL (14.0-18.0); Immature Granulocytes Abs Auto 0.07 10^3/uL (0.00-0.03); Immature Granulocytes Pct Auto 0.8 % (0.0-0.5); Lymphocytes Absolute Auto 1.5 10^3/uL (1.2-3.8); Mean Corpuscular HGB Conc 33.1 g/dL (29.9-35.2); Mean Corpuscular Hemoglobin 27.3 pg (25.9-34.0); Mean Corpuscular Volume 82.4 fL (80.0-94.0); Platelet Count 328 10^3/uL (150-450); Red Blood Count 5.61 10^6/uL (4.70-6.10); White Blood Count 8.5 10^3/uL (4.0-11.0)
[2024-11-26 12:38] LABS: Anion Gap 14.5; Blood Urea Nitrogen 16.0 mg/dL (7.0-18.0); Calcium 8.7 mg/dL (8.5-10.1); Carbon Dioxide 22.3 mmol/L (21.0-32.0); Chloride 107 mmol/L (98-107); Estimated GFR (African America >60 (>=60 mL/min/1.73m^2); Estimated GFR (Non-African Ame >60 (>=60 mL/min/1.73m^2); Glucose 86 mg/dL (74-106); Potassium 3.8 mmol/L (3.5-5.1); Sodium 140 mmol/L (136-145); Thyroid Stimulating Hormone 1.031 uIU/mL (0.358-3.740)
== END 2024-11-26 11:15 | disposition home or self-care (01) ==
PROVIDERS: PCP Family Medicine; Visit Provider Family Medicine
DX: Z00.00 Encounter for general adult medical examination without abnormal findings (principal); Z79.899 Other long term (current) drug therapy; R53.83 Other fatigue; E66.813 Obesity, class 3; Z68.41 Body mass index [BMI] 40.0-44.9, adult; Z12.5 Encounter for screening for malignant neoplasm of prostate
CPT/HCPCS: 36415; 80048; 83036; 84403; 84439; 84443; 85025; G0103

== ENCOUNTER 2025-01-14 13:40 | Outpatient (OUT) | payer BC, SELFPAY ==
--- OUTSIDE RECORDS SUMMARY | 2025-01-14 13:45 | XMS_ITS | Clinical Summary ---
Author Organization [facility] Healthcare Address [address] [place] [address] Care Team Providers Care Christian Science Healer Name Role Phone Red Sam MD Primary Care Provider [phone] Allergies Active AllergyReactionsCriticalityNoted DateCommentsCodeineNausea And Vomiting Low12/18/2007 Other Reaction(s): nausea and vomiting Medications MedicationSigDispense QuantityRefillsLast FilledStart DateEnd DateStatus hydrOXYzine HCl (Atarax) 25 MG tablet Indications:INDIA (generalized anxiety disorder)Take 1 tablet (25 mg) by mouth 4 (four) times a day as needed for anxiety 30 tablet 4Active pantoprazole (ProtoNix) 40 MG EC tablet Indications:Gastroesophageal reflux disease without esophagitisTAKE 1 TABLET BY MOUTH IN THE MORNING AND AT NOON 180 tablet 5Active Tirzepatide 2.5 MG/0.5ML solution auto-injector Indications:Class 3 severe obesity due to excess calories with serious comorbidity and body mass index (BMI) of40.0 to 44.9 in adult ([facility]-H[facility])Inject 2.5 mg under the skin 1 (one) time per week 2 mL 5Active FLUoxetine (PROzac) 20 MG capsule Indications:Moderate major depression, single episode (HCC)Take 3 capsules (60 mg) by mouth Daily 90 capsule 5Active atorvastatin (Lipitor) 40 MG tablet Indications:DyslipidemiaTAKE 1 TABLET BY MOUTH AT BEDTIME 90 tablet 5Active Active Problems ProblemNoted DateDiagnosed DateEncounter for long-term current use of medication 03/24/2024ilateral shoulder pain03/24/2024 Assessment & Plan (03/24/2024 9:05 AM EST): Pain over AC joint. Handout with ROM exercises. Use motrin PRN. Annual physical exam4Class 3 severe obesity due to excess calories with serious comorbidity and body mass index (BMI) of40.0 to 44.9 in adult12/24/2023 Assessment & Plan (08/19/2024 3:27 PM EDT): [...] 2:07 PM EDT): Weight loss indicated. Esophageal nhsihcsiq19/09/2024 Assessment & Plan (11/19/2023 2:05 PM EDT): Feels like food sticking and uncontrolled reflux. Refer to surgeon for EGD. Gastroesophageal reflux disease without eawetgnfkkn37/09/2024 Assessment & Plan (12/24/2023 2:06 PM EDT): Follow with surgeon. Assessment & Plan (11/19/2023 2:06 PM EDT): Uncontrolled reflux and increase protonix. Moderate major depression, single mhmmuxk8811/19/2023 Assessment & Plan (08/19/2024 3:28 PM EDT): [...] notice improvement in mood. INDIA (generalized anxiety disorder)11/19/2023 Assessment & Plan (08/19/2024 3:28 PM EDT): [...] improvement in mood. Start hydroxyzine PRN. Bilateral ucovznhn93/28/2023Sensorineural hearing loss (SNHL) of left ear with restricted hearing of right ear02/06/2023ontrolled substance agreement signed 02/21/2019Chronic narcotic use04/10/2017Neurofibromatosis, type Overview (02/06/2023): Follows with Neurology Diagnosed 2008 Assessment & Plan (08/19/2024 3:29 PM EDT): Follow with neurology. Assessment & Plan (11/19/2023 2:06 PM EDT): Follow with neurology. Smyrxjddgwql83/08/2008 Assessment & Plan (08/19/2024 3:27 PM EDT): Repeat labs. Low back pain12/18/2007 Overview (02/06/2023): Chronic Attributed to NF Resolved Problems ProblemNoted DateDiagnosed DateResolved DateOther chronic pain02/06/2023 02/06/2023 Family History Medical HistoryRelationNameCommentsCOPDFatherJosef MildnerDiabetesFatherJosef MildnerHeart failureFatherJosef MildnerHypertensionFatherJosef Mildner HypertensionMotherKaren mildnerRelationNameStatusCommentsFatherJosef Mildner AliveMotherKaren mildnerAlive Social History Tobacco UseTypesPacks/DayYears UsedDateSmoking Tobacco: NeverSmokeless Tobacco: Never Tobacco Cessation:Counseling Given: Not Answered Alcohol UseStandard Drinks/WeekCommentsNever0 (1 standard drink = 0.6 oz pure alcohol)caffeine intake: 1-2 cups per [id number] Health LiteracyAnswerDate RecordedHow often do you need to have someone help you when you read instructions, pamphlets, or other written material from your doctor or pharmacy? Never12/23/2023Social Connection and Isolation PanelAnswerDate RecordedIn a typical week, how many times do you talk on the phone with family, friends, or neighbors?Three times a week12/23/2023How often do you get together with friends or relatives?Twice a week12/23/2023How often do you attend lutheran or moravian services?More than 4 times per year12/23/2023o you belong to any clubs or organizations such as lutheran groups, unions, fraternal or athletic groups, or school groups?Yes12/23/2023How often do you attend meetings of the clubs or organizations you belong to?More than 4 times per year12/23/2023re you , , , , never , or living with a partner? 12/23/2023UDIT-CAnswerDate RecordedQ1: How often do you have a drink containing alcohol?Never12/23/2023Q2: How many drinks containing alcohol do you have on a typical day when you are drinking?Patient does not drink12/23/2023Q3: How often do you have six or more drinks on one occasion?Never12/23/2023Overall Financial Resource Strain (CARDIA)AnswerDate RecordedHow hard is it for you to pay for the very basics like food, housing, medical care, and heating?Not very hard 12/23/2023[facility] [place] of Occupational Health - Occupational Stress QuestionnaireAnswerDate RecordedDo you feel stress - tense, restless, nervous, or anxious, or unable to sleep at night because yourmind is troubled all the time - these days?To some liedrh4912/23/2023Exercise Vital SignAnswerDate Recorded On average, how many days per week do you engage in moderate to strenuous exercise (like a brisk walk)?0 days12/23/2023On average, how many minutes do you engage in exercise at this level?0 min12/23/2023Hunger Vital SignAnswerDate RecordedWithin the past 12 months, you worried that your food would run out before you got the money to buymore.Sometimes true12/23/2023Within the past 12 months, the food you bought just didn't last and you didn't have money to get more.Sometimes true12/23/2023RAPARE - TransportationAnswerDate RecordedIn the past 12 months, has lack of transportation kept you from medical appointments or from getting medications?No12/23/2023In the past 12 months, has lack of transportation kept you from meetings, work, or from getting things needed for daily living?No12/23/2023Housing Stability Vital SignAnswerDate RecordedIn the last 12 months, was there a time when you were not able to pay the mortgage or rent on time?No12/23/2023In the past 12 months, how many times have you moved where you were living?t any time in the past 12 months, were you homeless or living in a half-way (including now)?No12/23/2023Sex and Gender InformationValueDate RecordedSex Assigned at BirthNot on fileLegal SexMale 05/24/2022 9:28 PM EDTGender IdentityNot on fileSexual OrientationNot on file Last Filed Vital Signs Vital SignReadingTime TakenCommentsBlood Zjtshwxe980/7806 2:46 PM EDT Hjtcy505208/19/2024 2:46 PM MNDZdfsdpxwdat31.9 ??C (98.4 ??F)08/19/2024 2:46 PM EDTRespiratory Bufr805208/19/2024 2:46 PM EDTOxygen Nywwcqcrmt64%08/19/2024 2:46 PM EDTInhaled Oxygen Concentration--Isxapc91.6 kg (213 lb)08/19/2024 2:46 PM EDT Xvrqrz391.4 cm (5')08/19/2024 2:46 PM EDTBody Mass Index41.6008/19/2024 2:46 PM EDT Plan of Treatment Not on file Insurance Care Teams Team MemberRelationshipSpecialtyStart DateEnd Date Red Sam MD PCP - GeneralFamily Medicine11/19/23
--- OUTSIDE RECORDS SUMMARY | 2025-01-14 13:45 | XMS_ITS | Encounter Summary ---
Author Organization [facility] Address [address] [place] [address] Care Team Providers Care Features Editor Name Role Phone Red Sam MD Primary Care Provider [phone] Red Sam MD Unavailable Encounter Details DateTypeDepartmentCare Team (Latest Contact Info)Fgducgeikpe82/30/2024Clinisync Result Encounter [facility] External Department Unsolicited Arslan Maurice DO Social History Tobacco UseTypesPacks/DayYears UsedDateSmoking Tobacco: NeverSmokeless Tobacco: NeverAlcohol UseStandard Drinks/WeekCommentsNever0 (1 standard drink = 0.6 oz pure alcohol)caffeine intake: 1-2 cups per ymrQ0282 Health LiteracyAnswerDate RecordedHow often do you need [...] relatives?Twice a week12/23/2023How often do you attend tenriism or mandaeism services?More than 4 times per year4Do you belong to any clubs or organizations such as tenriism groups, unions, fraternal or athletic groups, or school groups?Yes12/23/2023How often do you attend meetings of the clubs or organizations you belong to?More than 4 times per year10/13/2024Are you , , , , never , [...] housing, medical care, and heating?Not very hard 12/23/2023[place] of Occupational Health - Occupational Stress QuestionnaireAnswerDate RecordedDo you feel stress - tense, restless, nervous, or anxious, or unable to sleep at night because yourmind is troubled all the time - these days?To some rlolhh2212/23/2023Exercise Vital SignAnswerDate Recorded On average, how many [...] times have you moved where you were living?010/13/2024At any time in the past 12 months, were you homeless or living in a alf (including now)?No12/23/2023Sex and Gender InformationValueDate RecordedSex Assigned at BirthNot on fileLegal SexMale 05/24/2022 9:28 PM EDTGender IdentityNot on fileSexual OrientationNot on file documented as of this encounter Functional Status * AUDIT-C ScoreAnswerDate of QqaofohhyaRycxdn129/13/2024 1:37 PM EDTMychkam, Generic * Q1: How often do you have a drink containing alcohol?AnswerDate of Assessment WnqpfaAitxw66/13/2024 1:37 PM EDTMychart, Generic * Q2: How many drinks containing alcohol do you have on a typical day when you are drinking?AnswerDate of AssessmentAuthorPatient does not drink12/23/2023 1:37 PM EDTMychart, Generic * Q3: How often do you have six or more drinks on one occasion?AnswerDate of HspyeitqevVfkiolLzzci10/13/2024 1:37 PM EDAnabella, Generic documented as of this encounter Plan of Treatment Not on file documented as of this encounter Procedures Procedure NamePriorityDate/TimeAssociated DiagnosisCommentsFLUORO SMALL BOWEL 12/10/2023 10:12 AM EDT documented in this encounter Results * FLUORO SMALL BOWEL (12/10/2023 10:12 AM EDT)Anatomical RegionLaterality ModalityRadiographic ImagingSpecimen (Source)Anatomical Location / Laterality Collection Method / VolumeCollection TimeReceived Time12/10/2023 10:12 AM EDT Narrative 12/10/2023 10:15 AM EDT [facility] ?[address] ? [place] [address] ? Fluoroscopy Report ? Signed ? Patient: DOC JONAS ?MR#: [id number] ?? : 1985 ?Acct:[id number] ?? Age/Sex: 38 / M ?ADM Date: 12/10/23 ?? Loc: [place] ? Attending Dr: Arslan Maurice D.O. ? Ordering Physician: Arslan Maurice D.O. ?? Date of Service: 12/10/23 ?? Procedure(s): FL small bowel ?? Accession Number(s): [id number] ? cc: Arslan Maurice D.O.; Red Sam M.D. ? [facility] ? [address] ? [place] [address] ? Patient Name: ?? DOC JONAS ? MRN: [facility]:[id number] ? date: 1985 ?Sex: M ?? Assigned Patient Location: [place] ?? Current Patient Location: [place] ?? Accession/Order Number: [id number] ?? Exam Date: 12/10/2023 ??08:05 ?Report Date: 12/10/2023 ??10:12 ? At the request of: ?? ARSLAN ??RYAN ? Procedure: ??FL small bowel ? EXAMINATION: FL upper GI w air, FL small bowel, FL cineradiography ? HISTORY: Hiatal Hernia K44.9 ? COMPARISON: No relevant comparison available. ? TECHNIQUE: Upper GI and small bowel series was performed in the usual manner. ?? Standard level fluoroscopic mode of operation utilized. ? FINDINGS: ?? ESOPHAGUS: Multiples episodes of prominent gastroesophageal reflux extending ?? to ?? the thoracic inlet. No appreciable stricture, abnormal dilation, or mucosal ?? irregularity. ?? STOMACH: No obstruction, mass, or ulceration. Normal motility. ?? DUODENUM: No ulceration or diverticulum. ?? JEJUNUM: Normal motility. No obstruction or visible lesion. ?? ILEUM: Normal motility. No obstruction or visible lesion. ?? OTHER: Negative. ? FL/FL small bowel ?? IMPRESSION: ? 1. Prominent gastroesophageal reflux without appreciable damage to the ?? esophagus, mass, or stricture. ?? 2. Unremarkable stomach. ?? 3. Unremarkable small bowel. ? Electronically authenticated by: DANIEL ??ROMAN ?? Date: 12/10/2023 ??10:12 ? Dictated By: ?Zieber,Daniel M.D. ? Signed By: ?12/10/23 1015 ? DD/ 1012 ? TD/TT: ? Sheet Metal Pattern Cutter: Procedure Note Radiology, Radiologist, MD - 12/11/2023 [place] [address] Fluoroscopy Report Signed Patient: DOC JONAS [facility]#: [id number] : 1985Acct:[id number] Age/Sex: 38 / MADM Date: 12/10/23 Loc: [place] Attending Dr: Arslan Maurice D.O. Ordering Physician: Arslan Maurice D.O. Date of Service: 12/10/23 Procedure(s): FL small bowel Accession Number(s): [id number] cc: Arslan Maurice D.O.; Red Sam M.D. [place] [address] Patient Name: DOC JONAS MRN: [facility]:[id number] date: 1985 Sex: M Assigned Patient Location: [place] Current Patient Location: [place] Accession/Order Number: [id number] Exam Date: 12/10/2023 08:05 Report Date: 12/10/2023 [...] M.D. Signed By:12/10/23 1015 DD/ 1012 TD/TT: Sheet Metal Pattern Cutter: Authorizing ProviderResult TypeResult StatusKyheri Maurice DOIMG XR PROCEDURES Final Result documented in this encounter Visit Diagnoses Not on filedocumented in this encounter Care Teams Team MemberRelationshipSpecialtyStart DateEnd Date Red Sam MD PCP - GeneralFamily Medicine11/19/23 Red Sam MD [address] [place] [address] JEREMIE - Sangeetha Wmycljbvgg51/1/244documented as of this encounter
--- OUTSIDE RECORDS SUMMARY | 2025-01-14 13:45 | XMS_ITS | Clinical Summary ---
Author Organization [facility] Address [address], [address] [place] [address] Care Team Providers Care Configuration Specialist Name Role Phone Unavailable Primary Care Provider Unavailabl e Allergies Active AllergyReactionsCriticalityNoted DateCommentsCodeineOther (See Comments) Low05/31/2018 States nausea Medications MedicationSigDispense QuantityRefillsLast FilledStart DateEnd DateStatus ibuprofen (ADVIL;MOTRIN) 800 MG tablet Take 1 tablet by mouth every 8 hours as needed for PainActive Social History Tobacco UseTypesPacks/DayYears UsedDateSmoking Tobacco: NeverSmokeless Tobacco: Never Tobacco Cessation:Counseling Given: Not Answered Alcohol UseStandard Drinks/WeekCommentsNever0 (1 standard drink = 0.6 oz pure alcohol)AUDIT-CAnswerDate RecordedQ1: How often do you have a drink containing alcohol?Never01/13/2023Q2: How many drinks containing alcohol do you have on a typical day when you are drinking?Patient does not drink01/13/2023Q3: How often do you have six or more drinks on one occasion?Never01/13/2023Sex and Gender InformationValueDate RecordedSex Assigned at BirthNot on fileLegal SexMale 05/31/2018 3:35 AM EDTGender IdentityNot on fileSexual OrientationNot on file Last Filed Vital Signs Vital SignReadingTime TakenCommentsBlood Hpgggrbe487/9411 4:32 PM EDT Dcwvz8125 4:32 PM YXTBhehdgvtuyx80.8 ??C (98.3 ??F)01/13/2023 4:32 PM EDTRespiratory Jemo191003/15/2022 4:32 PM EDTOxygen Vejwwjtweh53%01/13/2023 4:32 PM EDTInhaled Oxygen Concentration--Sxkgry74 kg (183 lb)01/13/2023 4:39 PM EDT Xuzrkf054.4 cm (5')01/13/2023 4:39 PM EDTBody Mass Index35.7401/13/2023 4:39 PM EDT Plan of Treatment Health MaintenanceDue DateLast DoneCommentsDepression Tpffur6907/21/1995Varicella vaccine (1 of 2 - 13+ 2-dose series)07/20/1996HIV pcovqt2607/20/1998Hepatitis C tvzstq8207/20/2001DTaP/Tdap/Td vaccine (1 - Tdap)07/20/2002Hepatitis B vaccine (1 of 3 - 19+ 3-dose series)07/20/20023714Nzbblh62/11/2024Flu vaccine (#1)10/10/2024 COVID-19 Vaccine ( season)2024HPV vaccine (No Doses Required) CompletedHepatitis A vaccineAged OutNo longer eligible based on patient's age to complete this topicHib vaccineAged OutNo longer eligible based on patient's age to complete this topicMeningococcal (ACWY) vaccineAged OutNo longer eligible based on patient's age to complete this topicMeningococcal B vaccineAged OutNo longer eligible based on patient's age to complete this topicPneumococcal 0-49 years VaccineAged OutNo longer eligible based on patient's age to complete this topicPolio vaccineAged OutNo longer eligible based on patient's age to complete this topic Insurance * Guarantor: Enrique Jonas TypeRelation to PatientDate of BirthPhone Billing AddressWorkers LcfuNdgp94/11/1986 [address] [place] [id number] * Guarantor: Enrique Jonas TypeRelation to PatientDate of BirthPhone Billing AddressPersonal/LyzvtwXtwe43[birth year][address] [address]
--- OUTSIDE RECORDS SUMMARY | 2025-01-14 13:45 | XMS_ITS | Clinical Summary ---
Author Organization [facility] Address [id number] [place] [address] Care Team Providers Care Chair Mechanic Name Role Phone Unavailable Primary Care Provider Unavailabl e Social History Tobacco UseTypesPacks/DayYears UsedDateSmoking Tobacco: Never AssessedSex and Gender InformationValueDate RecordedSex Assigned at BirthNot on fileLegal Sex Male04/14/2022 10:24 AM ESTGender IdentityNot on fileSexual OrientationNot on file Plan of Treatment Not on file Medical Devices Not on file
--- OUTSIDE RECORDS SUMMARY | 2025-01-14 13:45 | XMS_ITS | Encounter Summary ---
Author Organization [facility] Address [address] [place] [address] Care Team Providers Care Cut Out Press Operator Name Role Phone Red Sam MD Primary Care Provider [phone] Red Sam MD Unavailable Encounter Details DateTypeDepartmentCare Team (Latest Contact Info)Hpskjkdylrx05/30/2024Clinisync Result Encounter [facility] External Department Unsolicited Arslan Maurice DO Social History Tobacco UseTypesPacks/DayYears UsedDateSmoking Tobacco: NeverSmokeless Tobacco: NeverAlcohol UseStandard Drinks/WeekCommentsNever0 (1 standard drink = 0.6 oz pure alcohol)caffeine intake: 1-2 cups per [id number] Health LiteracyAnswerDate RecordedHow often do you need [...] relatives?Twice a week12/23/2023How often do you attend pentecostalism or rastafari services?More than 4 times per year4Do you belong to any clubs or organizations such as pentecostalism groups, unions, fraternal or athletic groups, or [...] medical care, and heating?Not very hard 12/23/2023[facility] [place] [facility] [employer] - Occupational Stress QuestionnaireAnswerDate RecordedDo you feel stress - tense, restless, nervous, or anxious, or unable to sleep at night because yourmind is troubled all the time - these days?To some oohdgz1812/23/2023Exercise Vital SignAnswerDate Recorded On average, how many [...] were you homeless or living in a group home (including now)?No12/23/2023Sex and Gender InformationValueDate RecordedSex Assigned at BirthNot on fileLegal SexMale 05/24/2022 9:28 PM EDTGender IdentityNot on fileSexual OrientationNot on file documented as of this encounter Functional Status * AUDIT-C ScoreAnswerDate of TuvswnzovoDldsmd048/13/2024 1:37 PM EDTMychkam, Generic * Q1: How often do you have a drink containing alcohol?AnswerDate of Assessment PemmaxSeeqo13/13/2024 1:37 PM EDTMychkam, Generic * Q2: How many drinks containing alcohol do you have on a typical day when you are drinking?AnswerDate of AssessmentAuthorPatient does not drink12/23/2023 1:37 PM EDFRANCESychkam, Generic * Q3: How often do you have six or more drinks on one occasion?AnswerDate of GuvrbkuurzCtgbxxWfoyk20/13/2024 1:37 PM EDAnabella, Generic documented as of this encounter Plan of Treatment Not on file documented as of this encounter Procedures Procedure NamePriorityDate/TimeAssociated DiagnosisCommentsXR CINERADIOGRAPHY 12/10/2023 10:12 AM EDT documented in this encounter Results * XR CINERADIOGRAPHY (12/10/2023 10:12 AM EDT)Anatomical RegionLaterality ModalityOtherSpecimen (Source)Anatomical Location / LateralityCollection Method / VolumeCollection TimeReceived Time12/10/2023 10:12 AM EDT Narrative 12/10/2023 10:15 AM EDT [facility] ?[address] ? [place] [id number] ? Fluoroscopy Report ? Signed ? Patient: DOC JONAS ?MR#: [id number] ?? : 1985 ?Acct:[id number] ?? Age/Sex: 38 / M ?ADM Date: 12/10/23 ?? Loc: [place] ? Attending Dr: Arslan Maurice D.O. ? Ordering Physician: Arslan Maurice D.O. ?? Date of Service: 12/10/23 ?? Procedure(s): FL cineradiography ?? Accession Number(s): [id number] ? cc: Arslan Maurice D.O.; Red Sam M.D. ? [facility] ? [address] ? [place] [address] ? Patient Name: ?? DOC JONAS ? MRN: [facility]:[id number] ? date: 1985 ?Sex: M ?? Assigned Patient Location: [place] ?? Current Patient Location[place] ?? Accession/Order Number: [id number] ?? Exam Date: 12/10/2023 ??08:05 ?Report Date: 12/10/2023 ??10:12 ? At the request of: ?? ARSLAN ??RYAN ? Procedure: ??FL cineradiography ? EXAMINATION: FL upper GI w air, [...] visible lesion. ?? OTHER: Negative. ? FL/FL cineradiography ?? IMPRESSION: ? 1. Prominent gastroesophageal reflux without appreciable damage to the ?? esophagus, mass, or stricture. ?? 2. Unremarkable stomach. ?? 3. Unremarkable small bowel. ? Electronically authenticated by: DANIEL ??ROMAN ?? Date: 12/10/2023 ??10:12 ? Dictated By: ?Daniel Christianson M.D. ? Signed By: ?12/10/23 1015 ? DD/ 1012 ? TD/TT: ? Assurance Engineer: Procedure Note Radiology, Radiologist, MD - 12/10/[address] [address] Fluoroscopy Report Signed Patient: DOC JONAS [facility]#: [id number] : 1985Acct:[id number] Age/Sex: 38 / MADM Date: 12/10/23 Loc: [place] Attending Dr: Arslan Maurice D.O. Ordering Physician: Arslan Maurice D.O. Date of Service: 12/10/23 Procedure(s): [place] cineradiography Accession Number(s): [id number] cc: Arslan Maurice D.O.; Red Sam M.D. [place] [id number] Patient Name: DOC JONAS MRN: [facility]:[id number] date: 1985 Sex: M Assigned Patient Location: [place] Current [place] Location: [place] Accession/Order Number: [id number] Exam Date: 12/10/2023 08:05 Report Date: 12/10/2023 [...] M.D. Signed By:12/10/23 1015 DD/ 1012 TD/TT: Assurance Engineer: Authorizing ProviderResult TypeResult StatusArslan Maurice DOCLINISYNC IMAGING Final Result documented in this encounter Visit Diagnoses Not on filedocumented in this encounter Care Teams Team MemberRelationshipSpecialtyStart DateEnd Date Red Sam MD [facility] Red Sam MD [address] [place] [phone] PCP - Sangeetha Vfussaumxq90/1/244documented as of this encounter
--- OUTSIDE RECORDS SUMMARY | 2025-01-14 13:45 | XMS_ITS | Encounter Summary ---
Author Organization [facility] Address [address] [place] [address] Care Team Providers Care Chief Engineer Drilling And Recovery Name Role Phone Red Sam MD Primary Care Provider [phone] Red Sam MD Unavailable Encounter Details DateTypeDepartmentCare Team (Latest Contact Info)Vamhwwatfsk50/30/2024Clinisync Result Encounter [facility] External Department Unsolicited Arslan Maurice DO Social History Tobacco UseTypesPacks/DayYears UsedDateSmoking Tobacco: NeverSmokeless Tobacco: NeverAlcohol UseStandard Drinks/WeekCommentsNever0 (1 standard drink = 0.6 oz pure alcohol)caffeine intake: 1-2 cups per [id number] Health LiteracyAnswerDate RecordedHow often do you need [...] relatives?Twice a week12/23/2023How often do you attend amish or yazidism services?More than 4 times per year4Do you belong to any clubs or organizations such as amish groups, unions, fraternal or athletic groups, or [...] medical care, and heating?Not very hard 12/23/2023[facility] [place] [employer] [facility] - Occupational Stress QuestionnaireAnswerDate RecordedDo you feel stress - tense, restless, nervous, or anxious, or unable to sleep at night because yourmind is troubled all the time - these days?To some thwlpd2312/23/2023Exercise Vital SignAnswerDate Recorded On average, how many [...] were you homeless or living in a snf (including now)?No12/23/2023Sex and Gender InformationValueDate RecordedSex Assigned at BirthNot on fileLegal SexMale 05/24/2022 9:28 PM EDTGender IdentityNot on fileSexual OrientationNot on file documented as of this encounter Functional Status * AUDIT-C ScoreAnswerDate of MatuocagwnQxekoc687/13/2024 1:37 PM EDTMychkam, Generic * Q1: How often do you have a drink containing alcohol?AnswerDate of Assessment FjcataBulqd04/13/2024 1:37 PM EDTMychart, Generic * Q2: How many drinks containing alcohol do you have on a typical day when you are drinking?AnswerDate of AssessmentAuthorPatient does not drink12/23/2023 1:37 PM EDTMychart, Generic * Q3: How often do you have six or more drinks on one occasion?AnswerDate of VmbuuckmikJhktchErznj63/13/2024 1:37 PM EDTMychakm, Generic documented as of this encounter Plan of Treatment Not on file documented as of this encounter Procedures Procedure NamePriorityDate/TimeAssociated DiagnosisCommentsFL UPPER GI W AIR* 12/10/2023 10:12 AM EDT documented in this encounter Results * [place] UPPER GI W AIR* (12/10/2023 10:12 AM EDT)Anatomical RegionLaterality ModalityRadiographic ImagingSpecimen (Source)Anatomical Location / Laterality Collection Method / VolumeCollection TimeReceived Time12/10/2023 10:12 AM EDT Narrative 12/10/2023 10:15 AM EDT [facility] ?[address] ? [place] [address] ? Fluoroscopy Report ? Signed ? Patient: DOC JONAS ?MR#: [id number] ?? : 1985 ?Acct:[id number] ?? Age/Sex: 38 / M ?ADM Date: 12/10/23 ?? Loc: [place] ? Attending Dr: Arslan Maurice D.O. ? Ordering Physician: Arslan Maurice D.O. ?? Date of Service: 12/10/23 ?? Procedure(s): FL upper GI w air ?? Accession Number(s): [id number] ? cc: Arslan Maurice D.O.; Red Sam M.D. ? [facility] ? [address] ? [place] [address] ? Patient Name: ?? DOC JONAS ? MRN: [facility]:[id number] ? date: 1985 ?Sex: M ?? Assigned Patient Location: [place] ?? Current [place] Location[place] ?? Accession/Order Number: [id number] ?? Exam Date: 12/10/2023 ??08:05 ?Report Date: 12/10/2023 ??10:12 ? At the request of: ?? ARSLAN ??RYAN ? Procedure: ??FL upper GI w air ? EXAMINATION: FL upper GI w air, [...] visible lesion. ?? OTHER: Negative. ? FL/FL upper GI w air ?? IMPRESSION: ? 1. Prominent gastroesophageal reflux without appreciable damage to the ?? esophagus, mass, or stricture. ?? 2. Unremarkable stomach. ?? 3. Unremarkable small bowel. ? Electronically authenticated by: DANIEL ??ROMAN ?? Date: 12/10/2023 ??10:12 ? Dictated By: ?Daniel Christianson M.D. ? Signed By: ?12/10/23 1015 ? DD/ 1012 ? TD/TT: ? Pin Ball Machine Mechanic: Procedure Note Radiology, Radiologist, - 12/10/2023 [place] [address] Fluoroscopy Report Signed Patient: DOC JONAS [facility]#: [id number] : 1985Acct:[id number] Age/Sex: 38 / MADM Date: 12/10/23 Loc: [place] Attending Dr: Arslan Maurice D.O. Ordering Physician: Arslan Maurice D.O. Date of Service: 12/10/23 Procedure(s): FL upper GI w air Accession Number(s): [id number] cc: Arslan Maurice D.O.; Red Sam M.D. [place] [address] Patient Name: DOC JONAS MRN: [facility]:[id number] date: 1985 Sex: M Assigned Patient Location: [place] Current [place] Location: [place] Accession/Order Number: [id number] Exam Date: 12/10/2023 08:05 Report Date: 12/10/2023 10:12 At the request of: ARSLAN AMURICE Procedure: FL upper GI w air EXAMINATION: [...] M.D. Signed By:12/10/23 1015 DD/ 1012 TD/TT: Pin Ball Machine Mechanic: Authorizing ProviderResult TypeResult StatusArslan Maurice DOIMG XR PROCEDURES Final Result documented in this encounter Visit Diagnoses Not on filedocumented in this encounter Care Teams Team MemberRelationshipSpecialtyStart DateEnd Date Red Sam MD [facility] Red Sam MD [address] [place] [phone] PCP - Sangeetha Ifkqioaulw52/1/244documented as of this encounter
--- OUTSIDE RECORDS SUMMARY | 2025-01-14 13:45 | XMS_ITS | Clinical Summary ---
Author Organization [facility] Address [address] [place] [address] Care Team Providers Care Can Slider Name Role Phone Unavailable Primary Care Provider Unavailabl e Allergies Active AllergyReactionsCriticalityNoted DateCommentsAcetaminophen-CodeineUnknown 06/04/20183806HeypawtSfhqpstCwc66/22/2019 States nausea Medications MedicationSigDispense QuantityRefillsLast FilledStart DateEnd DateStatus HYDROcodone-acetaminophen (NORCO) 5-325 mg per tablet Take 1 tablet by mouth as needed. Active Social History Tobacco UseTypesPacks/DayYears UsedDateSmoking Tobacco: NeverSmokeless Tobacco: NeverArea Deprivation IndexAnswerDate RecordedNational Score (1-100), lower number is lower riskNot on file02/19/2020State Score (1-10), lower number is lower riskNot on file02/19/2020Data from: https://www.neighborhoodatlas.medicine.[facility].edu/. Last address used for calculationNot on file02/19/2020Sex and Gender InformationValueDate RecordedSex Assigned at BirthNot on fileLegal OeiKvwa2203/15/2018 1:58 PM ESTGender Identity Not on fileSexual OrientationNot on file Last Filed Vital Signs Vital SignReadingTime TakenCommentsBlood Bmnpfaux875/6703 2:40 PM EST Mryau2961 2:40 PM ESTTemperature--Respiratory Rate--Oxygen Saturation-- Inhaled Oxygen Concentration--Lidnkv36.8 kg (158 lb 3.2 oz)05/13/2019 2:40 PM QGCTstata424.4 cm (5')05/13/2019 2:40 PM ESTBody Mass Index30.9005/13/2019 2:40 PM EST Plan of Treatment Health MaintenanceDue DateLast DoneCommentsAnxiety Lpakkzhlb02/11/2002Depression Zyhkmeqcb19/11/2002HIV Xdoxeforp82/11/2002Hepatitis C Rkkvfxcfk56/11/2002 DTaP,Tdap,Td Vaccine (1 - Tdap)07/20/2002Hepatitis B Vaccine (1 of 3 - 19+ 3- dose series)07/20/2002HPV Vaccine (1 - 3-dose SCDM series)07/20/2010Lipid Bgjjirwxz85/11/2019Covid-19 Vaccine ( - 2024- season)2024Influenza Vaccine (#1)2024 Insurance
--- OUTSIDE RECORDS SUMMARY | 2025-01-14 13:48 | XMS_ITS | CCD ---
Author Organization [facility] Care Team Providers Care Fireworks Display Specialist Name Role Phone Sterling Marquez Unavailable DR RED ROBLES Primary Care Unavailable FAWWAD, VALLE H Admitting Unavailable KATE VINAYA Consulting Unavailable FAWWAD, VALLE H Attending Unavailable FAWWAD, VALLE H Consulting Unavailable FAWWAD, VALLE H Attending Unavailable Wilber Canela Consulting Unavailable NADDR RED NELSON Primary Care Unavailable FAWWAD, VALLE H Admitting [...] Care Provider Red Robles MD Attending Provider [phone] Red Robles MD Primary Care Provider Red Robles MD Unavailable Allergies Allergy ClassificationReported Allergen(s)Allergy TypeDate of OnsetReaction(s) Facility (20 sources)CodeineDrug Vddcpnk42-34-8284golmwo, Nausea And VomitingNOMS Healthcare Work Phone: (1 source)CodeineDrug AllergyThe [facility] Repository (1 source)CodeineDrug Gyxigtw21-49-6284ZiztagznbMount St. [facility] Repository Medications Current Medications MedicationDrug Class(es)DatesSig (Normalized)Sig (Original)acetaminophen 325 mg / HYDROcodone bitartrate 5 mg oral tablet (1 source)Opioid AgonistStart: 20-35-3510ecce 0.5-1 tablets by mouth once daily as neededHYDROcodone-Acetaminophen 5-325 MG 1/2 - 1 tablet Orally once daily as needed for 30 days G89.29 Chronic pain Nov, Activeatorvastatin 40 mg oral tablet (12 sources)HMG-CoA Reductase InhibitorStart: 25-80-6326scpr 1 tablet by mouth once daily at bedtimeAtorvastatin 40 mg tablet Active 40 MG PO Daily at bedtime November 25, 2024 3:10pm Complies with drug therapyStart: 01-60-3624nmsr 1 tablet by mouth at bedtimeatorvastatin (Lipitor) 40 MG tablet Indications: Dyslipidemia (CMS/HCC) TAKE 1 TABLET BY MOUTH AT BEDTIME 90 tablet 1 04/16/2024 ActiveStart: 01-25-2021 End: 48-76-9203vlhx 1 tablet by mouth at bedtimeatorvastatin (Lipitor) 40 MG tablet Indications: Dyslipidemia (CMS/HCC) Take 1 tablet (40 mg) by mouth at bedtime 30 tablet 5 12/26/2023 ActiveStart: 45-05-5595Eyrlcwepftme Active MG TABLET January 25, 2021 1:00amFLUoxetine 20 mg oral capsule (17 sources)Serotonin Reuptake InhibitorStart: 26-95-5354rccq 3 capsules by mouth once dailyFluoxetine 20 mg capsule Active 60 MG PO Daily November 25, 2024 12:00am Complies with drug therapyStart: 52-81-8933vlkp 3 capsules by mouth once dailyFLUoxetine (PROzac) 20 MG capsule Indications: Moderate major depression, single episode (HCC) (CMS/HCC) Take 3 capsules (60 mg) by mouth Daily 90 capsule 3 08/19/2024 ActiveStart: 2024 End: 95-27-9527zzgn 1 capsule by mouth once dailyFLUoxetine (PROzac) 40 MG capsule Indications: Moderate major depression, single episode (HCC) (CMS/HCC) TAKE 1 CAPSULE BY MOUTH EVERY DAY 90 capsule 1 2024 08/19/2024 Discontinued (Reorder)Start: 72-62-3378hiib 1 capsule by mouth once daily FLUoxetine (PROzac) 40 MG capsule Indications: Moderate major depression, single episode (HCC) (CMS/HCC) Take 1 capsule (40 mg) by mouth Daily 30 capsule 5 03/24/2024 ActiveStart: 12-24-2023 End: 39-43-8149eayz 1 capsule by mouth once dailyFLUoxetine (PROzac) 20 MG capsule Indications: Moderate major depression, single episode (HCC) (CMS/HCC) Take 1 capsule (20 mg) by mouth Daily 30 capsule 3 12/24/2023 03/24/2024 Discontinued (Reorder)hydrOXYzine hydrochloride 25 mg oral tablet (20 sources)AntihistamineStart: 00-97-7138umhy 1 tablet by mouth four times daily as neededHydroxyzine Hcl 25 mg tablet Active 25 MG PO Four times daily as needed November 25, 2024 12:00am Complies with drug therapyibuprofen 400 mg oral tablet (1 source)Nonsteroidal Anti-inflammatory Drugtake 1 tablet by mouth three times daily at mealtime as neededIbuprofen 400 MG 1 tablet with food or milk as needed Orally Three times a day Activepantoprazole 40 mg delayed release oral tablet (20 sources)Proton Pump InhibitorStart: 30-98-7279wasm 1 tablet by mouth in the morningPantoprazole 40 mg tablet,delayed release (DR/EC) Active 40 MG PO As Directed November 25, 2024 12:00am Take one tablet by mouth in the morning and at noon Complies with drug therapyStart: 11-19-2023 End: 11-38-4048hjzp 1 tablet by mouth in the morningpantoprazole (ProtoNix) 40 MG EC tablet Indications: Gastroesophageal reflux disease without esophagitis TAKE 1 TABLET BY MOUTH IN THE MORNING AND AT NOON 180 tablet 2 04/22/2024 Active Tirzepatide 2.5 MG/0.5ML solution auto-injector (3 sources)Start: 76-86-5689Bysmbforxwg 2.5 MG/0.5ML solution auto-injector Indications: Class 3 severe obesity due to excess calories with serious comorbidity and body mass index (BMI) of 40.0 to 44.9 in adult Inject 2.5 mg und er the skin 1 (one) time per week 2 mL 1 08/19/2024 Active Completed/Discontinued Medications MedicationDrug Class(es)DatesSig (Normalized)Sig (Original)cholecalciferol 0.05 mg oral tablet (12 sources)Vitamin DStart: 01-25-2021 End: 16-10-8741Icofypulwfkhgfi (Vitamin D3) 50 mcg (2,000 unit) tablet Discontinued January 25, 2021 1:00am November 25, 2024 3:10pmStart: 62-40-7011Mkovlfejzdhwrdi (Vitamin D3) Active TABLET January 25, 2021 1:00am End: 76-22-6016jixo 1 capsule by mouth once dailycholecalciferol (Vitamin D-3) 50 MCG (2000 UT) capsule Take 1 capsule by mouth 1 (one) time each day at the same time. 12/24/2023 Discontinuedomeprazole 40 mg delayed release oral capsule (3 sources)Proton Pump InhibitorStart: 01-25-2021 End: 68-02-6127Dxrwkdxmyw 40 mg capsule,delayed release(DR/EC) Discontinued MG January 25, 2021 1:00am November 25, 2024 3:11pmStart: 01-25-2021 Omeprazole Active MG January 25, 2021 1:00amtake 1 capsule by mouth once dailyOmeprazole 10 MG 1 capsule 30 minutes before morning meal Orally Once a day Activephentermine hydrochloride 37.5 mg oral tablet (7 sources)Sympathomimetic Amine AnorecticStart: 03-24-2024 End: 51-83-7410afbz 38-38.9 tablets by mouth before mealtimephentermine (Adipex- P) 37.5 MG tablet Indications: Class 2 severe obesity due to excess calories wit h serious comorbidity and body mass index (BMI) of 38.0 to 38.9 in adult (CMS/HCC) Take 1 tablet (37.5 mg) by mouth in the morning. Take before meals. 30 tablet 04/22/2024 08/19/2024 Discontinuedsertraline 25 mg oral tablet (8 sources)Serotonin Reuptake InhibitorStart: 11-19-2023 End: 31-35-7727gsru 1 tablet by mouth once dailysertraline (Zoloft) 25 MG tablet Indications: Moderate major depression, single episode (HCC) (CMS/HCC) Take 1 tablet (25 mg) by mouth Daily 30 tablet 3 11/19/2023 12/24/2023 Discontinued Tirzepatide (1 source)Start: 11-25-2024 End: 68-72-4513Iiohgxexihc 2.5 mg/0.5 mL pen injector Discontinued 2.5 MG SUBCUT every week November 25, 2024 12:00am November 26, 2024 9:39am for 4 weeks Problems Active Problems Problem ClassificationProblemDateDocumented DateEpisodic/ChronicAnxiety disorders (20 sources)Generalized anxiety disorder; Translations: [Generalized anxiety disorder]Onset: 887837-08-8180DhyphbmPtyjbdbjp of lipid metabolism (20 sources)Hyperlipidemia; Translations: [Hyperlipidemia, unspecified]Onset: 989814-93-7143IcjcasoWsnqhsbzms disorders (20 sources)Gastroesophageal reflux disease without esophagitis; Translations: [Gastro-esophageal reflux disease without esophagitis]Onset: 11-19-2023 45-09-1953XdtudxyUvaoptb and fatigue (2 sources)Fatigue; Translations: [Other fatigue]17-95-0409PrvovlksXevq disorders (20 sources)Moderate major depression, single episode; Translations: [Major depressive disorder, single episode, moderate]Onset: 735129-02-9792Mzrzmws Nervous system congenital anomalies (20 sources)Neurofibromatosis, unspecified; Translations: [Neurofibromatosis] Onset: 44-24-3084VufnlfrHaftt ear and sense organ disorders (20 sources)Bilateral hearing loss; Translations: [Sensorineural hearing loss, unilateral, left ear, with restricted hearing on the contralateral side]Onset: 546795-93-6786LvgblelWqvrf gastrointestinal disorders (2 sources)Dysphagia; Translations: [Dysphagia, unspecified]77-59-5086Gajutqqt Other nervous system disorders (20 sources)Chronic pain; Translations: [Other chronic pain]Onset: 02-06-2023 Resolved: 871759-59-7823GhglrdaBeaeh nervous system disorders (1 source)Other chronic painOnset: 01-13-2021 Resolved: 44-68-6145VjffbiwVdhcr non-traumatic joint disorders (2 sources)Bilateral chronic pain of upper limbs; Translations: [Pain in right shoulder]19-84-2419IrnnadzhVlhvg nutritional; endocrine; and metabolic disorders (9 sources)Body mass index 30+ - obesity; Translations: [Obesity, unspecified] Onset: 366107-85-2044FrayijxPrxnu nutritional; endocrine; and metabolic disorders (20 sources)Severe obesity; Translations: [Class 2 severe obesity due to excess calories with serious comorbidity and body mass index (BMI) of 38.0 to 38.9 in adult ([facility])]Onset: 180999-88-5769AiwclmlBdbzn screening for suspected conditions (not mental disorders or infectious disease) (4 sources)Other abnormal findings on diagnostic imaging of central nervous system; Translations: [OTH 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 DX IMAGING FREELANCE DESIGNER]Onset: 04-03-2022 EpisodicSpondylosis; intervertebral disc disorders; other back problems (5 sources)Solitary sacroiliitis; Translations: [Sacroiliitis, not elsewhere classified]Onset: 01-13-2021 Resolved: 71-29-8847TfpeauyAawjjaw and strains (1 source)Unspecified sprain of right wrist, initial encounter; Translations: [Unspecified sprain of right wrist, initial encounter]Onset: 27-41-6804Kgwcojjw Past or Other Problems Problem ClassificationProblemDateDocumented DateEpisodic/ChronicOther aftercare (20 sources)Drug therapy finding; Translations: [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) drug 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]Onset: 782323-36-3439CyyohxjeBngvo aftercare (14 sources)Long-term current use of drug therapy; Translations: [Other skilled nursing (current) drug therapy]Onset: 317157-65-8302CnodcdmpBkcay ear and sense organ disorders (20 sources)Bilateral tinnitus; Translations: [Tinnitus, bilateral]Onset: 207746-80-5900RqyftiqgOumaw gastrointestinal disorders (20 sources)Esophageal dysphagia; Translations: [Other dysphagia]Onset: 254742-17-9743GupoenayFrlcz non-traumatic joint disorders (1 source)Pain in left shoulderOnset: 01-13-2021 Resolved: 04-70-8333VyinwnjpEnkwd non-traumatic joint disorders (11 sources)Pain in right shoulder; Translations: [Pain in joint, shoulder region]Onset: 578515-16-3068HpqimtvpGxpipkllukc; intervertebral disc disorders; other back problems (20 sources)Low back pain; Translations: [Low back pain]Onset: 12-18-2007 54-77-5768YcxjbzlzDvfghzuym-related disorders (20 sources)Narcotic drug user; Translations: [Opioid use, unspecified, uncomplicated]Onset: 909953-52-1887Ftlpaleg Results Test NameValueInterpretationReference RangeFacilityALL LIPID PROFILE (FASTING)on 82-32-3018RMFX HDL RATIO4.2NOMS HealthcareComment on above:3.3 - 4.4 LOW RISK 4.4 - 7.1 AVERAGE RISK 7.1 - 11.0 MODERATE RISK >11.0 HIGH RISK Cholesterol [Mass/Vol]163 mg/dLNINF - 200 mg/dLNOThree Rivers HealthcareCholesterol in HDL [Mass/Vol]39 mg/dLLow40 - 60 mg/dLNOMT HealthcareComment on above:> or =60 mg/dl - LOW CARDIOVASCULAR RISK <40 mg/dl - HIGH CARDIOVASCULAR RISK Magnesium [Mass/Vol]78 mg/dLNOMT HealthcareComment on above:<100 mg/dl OPTIMAL 100-129 mg/dl NEAR OR ABOVE OPTIMAL 130-159 mg/dl BORDERLINE HIGH 160-189 mg/dl HIGH >190 mg/dl VERY HIGH Magnesium [Mass/Vol]46 mg/dLNOMT HealthcareTriglyceride [Mass/Vol]230 mg/dLHigh NINF - 150 mg/dLNOMissouri Baptist Hospital-SullivanHP LIVER PANELon 81-82-7262Dwbqtnf [Mass/Vol] 3.5 g/dL3.4 - 5.0 g/dLNOMT HealthcareALBUMIN GLOBULIN COMPW9ZJRH HealthcareALP [Catalytic activity/Vol]98 U/L46 - 116 U/LNOMS HealthcareALT [Catalytic activity/Vol]66 U/LHigh16 - 63 U/LNOMS HealthcareAST [Catalytic activity/Vol]28 U/L15 - 37 U/LNOMS HealthcareBilirubin [Mass/Vol]0.2 mg/dL0.2 - 1.0 mg/dLCENTRAL VALLEY MEDICAL [facility]ENTER HealthcareBilirubin.indirect [Mass/Vol]0.1 mg/dL0.0 - 0.2 mg/dLSaint Joseph Hospital West Globulin (S) [Mass/Vol]3.4 g/dLNOMT HealthcareProtein [Mass/Vol]6.9 g/dL6.4 - 8.2 g/dLSaint Joseph Hospital WestNo Panel Informationon 41-54-7268Qvquhwbrfjgxxv and review of laboratory resultsAbnormalSaint Joseph Hospital WestCLINISYNCNCHOCTAW NATION HEALTH [facility] HealthcareALL CBC WITH AUTO DIFFon 02-11-1820SPFNQNJIG ABSOLUTE AUTO0.1NOMS [facility] Basophils/100 WBC (Bld)0.8 %0.2 - 2.0 %NOMS HealthcareEosinophils/100 WBC (Bld) 2.4 %0.9 - 7.0 %[facility] Hospital WestErythrocyte distribution width (RBC) [Ratio]13.3 %11.0 - 15.0 %NOM HealthcareHematocrit (Bld) [Volume fraction]47.9 %42.0 - 54.0 %[facility] WestHemoglobin (Bld) [Mass/Vol]15.8 g/dL14.0 - 18.0 g/dLSaint Joseph Hospital WestIMMATURE GRANULOCYTES ABS AUTO0.12HighSaint Joseph Hospital WestImmature granulocytes/100 WBC (Bld)1.7 %High0.0 - 0.5 %[facility] HealthcareInterpretation and review of laboratory resultsAbMcLaren Northern MichiganLYMPHOCYTES ABSOLUTE AUTO1.6 NOMWestern Missouri Medical CenterLymphocytes/100 WBC (Bld)22 %20.5 - 60.0 %Cox MonettH (RBC) [Entitic mass]27.7 pg25.9 - 34.0 pgCox MonettHC (RBC) [Mass/Vol]33 g/dL29.9 - 35.2 g/dLCox MonettV (RBC) [Entitic vol]84 fL80.0 - 94.0 fL NOMWestern Missouri Medical CenterMONOCYTES ABSOLUTE AUTO0.9HighCENTRAL VALLEY MEDICAL CENTER HealthcareMonocytes/100 WBC (Bld)12.7 %High1.7 - 12.0 %NOM HealthcareNEUTROPHILS ABSOLUTE AUTO4.3NOThree Rivers HealthcareNeutrophils/100 WBC (Bld)60.4 %43.0 - 75.0 %NOMS HealthcarePlatelet mean volume (Bld) [Entitic vol]9.9 fL9.5 - 13.5 fLNOMS HealthcareTBH EO #0.2NOMS HealthcareTBH PTY070NQDZ HealthcareTBH RBC5.7NOMS HealthcareTBH WBC7.1NOMS HealthcareCLINISYNCNOMS HealthcarePathology Request for Lab Corpon 12-18-2023 Pathology Request for Lab CorpSt. Mary's Medical Center Physician GroupComment on above:Order Comment: PATHOLOGY GI SPECIMENResult Comment: See report. Scanned copy available in EMR. PERFORMED BY: [place] [address] PATHOLOGIST COPYHOLDER LISA ZAMORA M.D.Performed By: #### [facility] #### [place] [address] USAFL UPPER GI W AIR*on 38-96-1272ZhiRing[place] [address] Fluoroscopy Report Signed Patient: DOC JONAS MR#: [id number] : 1985 Acct:[id number] Age/Sex: 38 / M ADM Date: 12/10/23 Loc: [place] Attending Dr: Arslan Maurice D.O. Ordering Physician: Arslan Maurice D.O. Date of Service: 12/10/23 Procedure(s): [place] upper GI w air Accession Number(s): [id number] cc: Arslan Maurice D.O.; Red Robles M.D. [place] [id number] Patient Name: DOC JONAS MRN: [facility]:[id number] date: 1985 Sex: M [place]igned [place]: [place] Current [place] Location: [place] Accession/Order Number: [id number] Exam Date: 12/10/2023 08:05 Report Date: 12/10/2023 10:12 At the request of: RASLAN MAURICE Procedure: [place] upper GI w air [...] Signed By: 12/10/23 1015 DD/ 1012 TD/TT: Byproducts Operator:TBHRadiology, Radiologist, - 12/10/2023 [place] [address] Fluoroscopy Report Signed Patient: DOC JONAS MR#: [id number] : 1985 Acct:[id number] Age/Sex: 38 / M ADM Date: 12/10/23 [place]: [place] Attending Dr: Arslan Maurice D.O. Ordering Physician: Arslan Maurice D.O. Date of Service: 12/10/23 Procedure(s): FL upper GI w air Accession Number(s): [id number] cc: Arslan Maurice D.O.; Red Robles M.D. The [place] [address] Patient Name: DOC JONAS MRN: TBH:[id number] date: 1985 Sex: M [place]igned Patient [place] Accession/Order Number: [id number] Exam Date: 12/10/2023 08:05 Report Date: 12/10/2023 [...] Signed By: 12/10/23 1015 DD/ 1012 TD/TT: Byproducts Operator: REJI [facility] Panel InformationOrdered By: Radiologist Radiology on 82-48-1844[employer] Work Phone: No Panel Informationon 79-79-2226Opktfesib Study observation (narrative)[facility] Gastrointestinal tract upper Views W water soluble contrast Tiffany 91-69-8390KkhRing[place], [place] [address] Fluoroscopy Report Signed Patient: DOC JONAS MR#: [id number] : 1985 Acct:[id number] Age/Sex: 38 / M ADM Date: 12/10/23 Loc: [place] Attending Dr: Arslan Maurice D.O. Ordering Physician: Arslan Maurice D.O. Date of Service: 12/10/23 Procedure(s): [place] small bowel Accession Number(s): [id number] cc: Arslan Maurice D.O.; Red Robles M.D. The [place] [id number] Patient Name: DOC JONAS MRN: [facility]:[id number] date: 1985 Sex: M [place]igned Patient [place] Accession/Order Number: [id number] Exam Date: 12/10/2023 08:05 Report Date: 12/10/2023 [...] Signed By: 12/10/23 1015 DD/ 1012 TD/TT: Byproducts Operator:KRISTAadiologfransisca, Radiologist, - 12/11/2023 [place] [address] Fluoroscopy Report Signed Patient: DOC JONAS MR#: [id number] : 1985 Acct:[id number] Age/Sex: 38 / M ADM Date: 12/10/23 [place]: [place] Attending Dr: Arslan Maurice D.O. Ordering Physician: Arslan Maurice D.O. Date of Service: 12/10/23 Procedure(s): FL small bowel Accession Number(s): [id number] cc: Arslan Maurice D.O.; Red Robles M.D. The [place] [id number] Patient Name: DOC JONAS MRN: [facility]:[id number] date: 1985 Sex: M Assigned Patient [place]: [place] Accession/Order Number: [id number] Exam Date: 12/10/2023 08:05 Report Date: 12/10/2023 [...] Signed By: 12/10/23 1015 DD/ 1012 TD/TT: Byproducts Operator: REJI Pulliam CINERADIOGRAPHYon 34-38-4460IydRing[place] [address] Fluoroscopy Report Signed Patient: DOC JONAS MR#: [id number] : 1985 Acct:[id number] Age/Sex: 38 / M ADM Date: 12/10/23 [place]: [place] Attending Dr: Arslan Maurice D.O. Ordering Physician: Arslan Maurice D.O. Date of Service: 12/10/23 Procedure(s): FL cineradiography Accession Number(s): [id number] cc: Arslan Maurice D.O.; Red Robles M.D. [address] [address] Patient Name: DOC JONAS MRN: [id number]:[id number] date: 1985 Sex: M Assigned Patient [place] Accession/Order Number: [id number] Exam Date: 12/10/2023 08:05 Report Date: 12/10/2023 [...] Signed By: 12/10/23 1015 DD/ 1012 TD/TT: Byproducts Operator:KRISTAadiologfransisca, Radiologist, - 12/10/2023 [place] [address] Fluoroscopy Report Signed Patient: DOC JONAS MR#: [id number] : 1985 Acct:[id number] Age/Sex: 38 / M ADM Date: 12/10/23 Loc: [place] Attending Dr: Arslan Maurice D.O. Ordering Physician: Arslan Maurice D.O. Date of Service: 12/10/23 Procedure(s): FL cineradiography Accession Number(s): [id number] cc: Arslan Maurice D.O.; Red Robles M.D. The [address] [address] Patient Name: DOC JONAS MRN: [facility]:[id number] date: 1985 Sex: M Assigned Patient [place]: [place] Accession/Order Number: [id number] Exam Date: 12/10/2023 08:05 Report Date: 12/10/2023 [...] Signed By: 12/10/23 1015 DD/ 1012 TD/TT: Byproducts Operator: REJI SaundersXR ELBOW RIGHT (MIN 3 VIEWS)on 62-88-0692YA ELBOW RIGHT (MIN 3 VIEWS)EXAM: XR RADIUS ULNA RIGHT (2 VIEWS), XR [...] Signed by: Kika Winkler MD 01/13/23 Final resultNoWexner Medical CenterXR RADIUS ULNA RIGHT (2 VIEWS)on 88-64-3585GO RADIUS ULNA RIGHT (2 VIEWS)EXAM: XR RADIUS ULNA RIGHT (2 VIEWS), XR [...] Signed by: Kika Winkler MD 01/13/23 Final resultNoWexner Medical CenterXR WRIST RIGHT (MIN 3 VIEWS)on 80-87-9965KO WRIST RIGHT (MIN 3 VIEWS)EXAM: XR RADIUS ULNA RIGHT (2 VIEWS), XR [...] Signed by: Kika Winkler MD 01/13/[address] Mary HospitalI ORBIT WO W CONon 19-66-9330MWC ORBIT WO W CON Begin Addendum #1 [...] the hypothalamus is not included in the nceko-cn-mavx on the coronal images. This masslike enlargement [...] and hypothalamus is not included in the lqobi-lw-praw on most of the sequences (coronal plane). 2. Redemonstration of masslike enlargement of the hypothalamus. No associated contrast enhancement. 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 3. Stable T2 hyperintense lesion within the anterior medial left frontal lobe. There is evidence for solid enhancement. This is concerning for glioma given history of neurofibromatosis.NormalMercy Health St. Rita'S Medical CenterMRI BRAIN WO CONon 24-47-1835DGN BRAIN WO CONEXAM: MRI BRAIN WO CON HISTORY: Neurofibromatosis syndrome neurofibromatosis. Some hearing loss, [...] Electronically authenticated by: DIETER SIDDIQUI Date: 2022-03-28 16:09NoSelect Medical Specialty Hospital [facility] HospitalCoding Summary.on 23-45-7348Wssdrw Summary.CODING DATE: 05/27/2019 FINAL [facility] STATUS: Home (Routine DC) PAYOR: Sangeetha ADMIT [...] Candis Le CphT Date Saved: 05/27/2019 01:37 pmNGreene Memorial Hospitalemen Analysis PostVason 33-64-7403Demk/Transport ProbNo ProblemsLakeHealth Beachwood Medical CenterComment on above:Performed By: #### [id number], [id number] #### [facility] [address] [id number] Comment: Order Added by Discern Expert.Collect. Meth MasturbationLakeHealth Beachwood Medical CenterComment on above:Performed By: #### [id number], [id number] #### [facility] [address], [place] [address]Tzuzc Comment: Order Added by Discern Expert.Days Abstained1 day(s)Low2-5FRegency Hospital CompanyComment on above:Performed By: #### [id number], [id number] #### [facility] [address], [place] [address]Ovwsn Comment: Order Added by Discern Expert.Post Vas ScreenNo Sperm SeenNormal<=0[facility] HospitalComment on above:Result Comment: A Concentration Technique is used to confirm any semen which is azospermic (no sperm seen).Performed By: #### [id number], [id number] #### [facility] [address], [place] [address]Qszgc Comment: Order Added by Discern Expert.Spec. Container Steril ContainerLakeHealth Beachwood Medical CenterComment on above:Performed By: #### [id number], [id number] #### [facility] [address] [place], [place] [address]Other Comment: Order Added by Discern Expert.Spec. Temp22 DegC Pekyry55-65JzvaxcSalem City HospitalComment on above:Performed By: #### [id number], [id number] #### [facility] [address] [place], [place] [address]Other Comment: Order Added by Discern Expert.Sperm Count0 Million/mLLow>=20[facility] HospitalComment on above:Result Comment: A Concentration Technique is used to evaluate all sperm counts <20 million. Performed By: #### [id number], [id number] #### [facility] [address] [place], [place] [address]Other Comment: Order Added by Discern Expert.Sperm Morphon 97-11-0490Ujcog MorphNo sperm identified (A concentration technique is used to evaluate this specimen). Inflammatory cells present.[facility] Comment on above:Order Comment: Order Added by Discern Expert.Performed By: #### [id number], [id number] #### [facility] [address] [place], [place] [address]Other Comment: Order Added by Discern Expert.Sperm MorphNo sperm identified (A concentration technique is used to evaluate this specimen). Inflammatory cells present. ICD10 Z30.9[facility] HospitalComment on above:Order Comment: Order Added by Discern Expert.Performed By: #### [id number], [id number] #### [facility] [address] [place], [place] [address]Other Comment: Order Added by Discern Expert.CNOVon 05-13-2019 CNOVOffice Visit (NEPNMN) DOC JONAS ([id number]) 1985 M Date Time Provider Department 05/13/19 [...] Medications: Current Outpatient Medications Medication Sig - HYDROcodone-acetaminophen (NORCO) 5-325 mg per tablet Take 1 tablet by mouth as needed. No current facility-administered medications for this visit. Medication side effects: None Interval History: Since last visit No hospitalizations, operations, or significant illnesses/injuries. 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 Has not seen a cloth bleaching range tender or had an echo. Has not seen obiee report developer in a while; last time in 2010. He reports numbness in hands and feet. Also notes lower back pain for which he occasionally takes [place]. Pain is worsened on prolonged sitting or standing. 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 MRI spine showed multiple tumors. Patient also has multiple ohzn-qr-rfhp hawley and neurofibromas.No problems using his limbs or walking. Denies bowel/bladder or sexual issues. Neurofibromas are not growing rapidly, hurting spontaneously or getting hard. Got 2 removed a few months ago and wants one on his back removed too (pain on light touch). Headaches: Occur almost daily. Takes Motrin for them. New Neurological Symptoms: None. REVIEW OF SYSTEMS: Skin: multiple pdda-gc-iqrj hawley and neurofibromas (torso and scalp) Eyes: [...] Neurofibromatosis type 1: back pain, numbness hands/feet, dwxu-tf-zcyr hawley, neurofibromas Headaches: daily Care plan, management, [...] Scribe Attestation: By signing my name below, IPedro, [...] Reason For Visit History Recorded Primary Visit Diagnosis:Neurofibromatosis, type 1 (von Recklinghausen's disease) ([facility]) [Q85.01] Prescriptions as of 05/13/2019 Sig: HYDROCODONE 5 MG-ACETAMINOPHE* Take 1 tablet by mouth as nee* Problem List As Of Date: 05/13/2019 (None) Encounter Status:Closed by Natalee ZELAYA MD on 05/13/19[facility] [id number] ID: [id number] Author: Natalee Zelaya Service: ? Author Type: [...] Medications: Current Outpatient Medications Medication Sig - HYDROcodone-acetaminophen (NORCO) 5-325 mg per tablet Take 1 tablet by mouth as needed. No current facility-administered medications for this visit. Medication side effects: None Interval History: Since last visit No hospitalizations, operations, or significant illnesses/injuries. 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 Has not seen a cloth bleaching range tender or had an echo. Has not seen obiee report developer in a while; last time in 2010. He reports numbness in hands and feet. Also notes lower back pain for which he occasionally takes [place]. Pain is worsened on prolonged sitting or standing. 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 MRI spine showed multiple tumors. Patient also has multiple jjqg-qp-hlcq hawley and neurofibromas.No problems using his limbs or walking. Denies bowel/bladder or sexual issues. Neurofibromas are not growing rapidly, hurting spontaneously or getting hard. Got 2 removed a few months ago and wants one on his back removed too (pain on light touch). Headaches: Occur almost daily. Takes Motrin for them. New Neurological Symptoms: None. REVIEW OF SYSTEMS: Skin: multiple jwtn-qy-sjqi hawley and neurofibromas (torso and scalp) Eyes: [...] Neurofibromatosis type 1: back pain, numbness hands/feet, styh-jm-ybda hawley, neurofibromas Headaches: daily Care plan, management, [...] Luis Zelaya MD. May 13, 2019 3:37 PMNormalK[facility] on 75-40-8580ZWXDZqwylj Visit (MODESTONMN) FLORENTINDOC ([id number]) 1985 M Date Time Provider Department 11/12/18 2:50 PM Natalee ZELAYA During your visit [...] none recently Current Medications: Current Outpatient Medications: HYDROcodone-acetaminophen (NORCO) 5-325 mg per tablet Take [...] for Visit: Established Patient [175] Primary Visit Diagnosis:Neurofibromatosis, type 1 (von Recklinghausen's disease) ([facility]) [Q85.01] Prescriptions as of 11/12/2018 Sig: HYDROCODONE 5 MG-ACETAMINOPHE* Take 1 tablet by mouth as nee* Problem List As Of Date: 11/12/2018 (None) Disposition: Return in about 6 months (around 05/13/2019). Follow-up and Disposition History Recorded Encounter Status:Closed by Natalee ZELAYA MD [facility]/18[facility] [id number] ID: [id number] Author: Natalee Zelaya Service: ? Author Type: Physician Type: Progress Notes Filed: 11/12/2018 3:12 PM Note Text: PEDIATRIC NEUROLOGY FOLLOW-UP Dear Dr. Christian Benoit had the pleasure of evaluating Doc Nieveskedar in the pediatric neurology clinic on 11/12/2018 in for the problem of n.f.-1. My final impression and recommendations will be transmitted to the requesting physician by way of shared electronic medical record or letter via U.S. Mail. Doctor/Date: Luis Zelaya MD / 11/12/2018 Date of last visit: 05/28 Age: [age] year old : 1985 Immunizations: none recently Current Medications: Current Outpatient Medications: HYDROcodone-acetaminophen (NORCO) 5-325 mg per tablet Take [...] plan of care documented above Luis Zelaya MDHolzer HospitalCNOVyohana [id number] Visit (NEPNMN) DOC JONAS ([id number]) 1985 M Date Time Provider Department 06/04/18 1:00 PM Natalee ZELAYA During your visit today, we recorded the following information about you: Pulse Blood pressure Weight Height 74/minute 134/71 80.7 kg 1.524 m A. Luis Enrique Zelaya MD 06/04/2018 2:04 PM Signed Dear [...] yrs ago Current Medications: Current Outpatient Medications: HYDROcodone-acetaminophen (NORCO) 5-325 mg per tablet Take [...] Headache Status Headache Description-occas hunt, not signif1. 440580} edx was made at age 22, no [...] for Visit: New Patient [172] Primary Visit Diagnosis:Neurofibromatosis, type 1 (von Recklinghausen's disease) ([facility]) [Q85.01] Other Visit Diagnosis:Multiple neurofibromas in neurofibromatosis ([facility]) [Q85.09] Order(s):CONSULT TO OPHTHALMOLOGY [9024] Order #: [id number]: 1 CONSULT TO PEDS CARDIOLOGY [020031] Order #: [id number]: 1 Prescriptions as of 06/04/2018 Sig: HYDROCODONE 5 MG-ACETAMINOPHE* Take 1 tablet by mouth. Problem List As Of Date: 06/04/2018 (None) Disposition: Return in about 6 months (around 12/05/2018). Follow-up and Disposition History Recorded Encounter Status:Closed by Natalee ZELAYA MD on 06/04/18[facility] [id number] ID: [id number] Author: Natalee Zelaya Service: ? Author Type: [...] yrs ago Current Medications: Current Outpatient Medications: HYDROcodone-acetaminophen (NORCO) 5-325 mg per tablet Take [...] Headache Status Headache Description-occas hunt, not signif1. 286861} edx was made at age 22, no [...] above Sincerely, Luis Zelaya MD Staff Pediatric NeurologistNoOhio Valley Surgical Hospital Vital Signs Date TimeVital SignValuePerforming WpctkfhtaRrdjdeta12-04-6789 09:37-0400Body oddouo671.4 cmRed Robles MD Work Phone: [phone] [place], [place] 9748409-17-2025 09:37-0400 Body mass index (BMI) [Ratio]41 kg/m2Red Robles MD Work Phone: [phone]09-17-2025 09:37-0400 Body aaavpaepvbx864 [degF]Red Robles MD Work Phone: [phone])[address]09-17-2025 09:37-0400 Body dnjayo46.25 kgRed Robles MD Work Phone: [phone]09-17-2025 09:37-0400 Diastolic blood asdbfobj98 mm[Hg]Red Robles MD Work Phone: [facility]09-17-2025 09:37-0400 Heart rate55 /minRed Robles MD Work Phone: [facility]09-17-2025 09:37-0400 Respiratory rate16 /minRde Robles MD Work Phone: 1([phone])122-[address] [place], [place] 3923209-17-2025 09:37-0400 SaO2% (BldA) [Mass fraction]99 %Red Robles MD Work Phone: [facility]09-17-2025 09:37-0400 Systolic blood rwohxebm060 mm[Hg]Red Robles MD Work Phone: [facility]06-10-2025 14:46-0400 Body edpjxt233.4 cmRed Robles MD Work Phone: [facility] WestZnrctntsah40-57-9766 14:46-0400Body mass index (BMI) [Ratio]41.6 kg/m2Red Robles MD Work Phone: [facility] WestQxtpefnzyh18-19-1390 14:46-0400Body temperature 98.4 [degF]Red Robles MD Work Phone: [facility] WestMuyilswxac79-78-6820 14:46-0400Body jhzotz32.62 kgRed Robles MD Work Phone: [facility] WestUcpaqzkhef63-47-9136 14:46-0400Diastolic blood mm[Hg]Red Robles MD Work Phone: [facility] WestJjyfpqsqed97-43-6486 14:46-0400Heart rate95 /min Red Robles MD Work Phone: [facility] WestPsbzsnmsbw10-40-4161 14:46-0400Respiratory rate18 /minRed Robles MD Work Phone: [facility] WestGtcknplggg84-43-8111 14:46-6474HbU5% (BldA) [Mass fraction]96 %Red Robles MD Work Phone: [facility] WestQwseqnpzsy74-03-1929 14:46-0400Systolic blood sjbsnowm841 mm[Hg]Red Robles MD Work Phone: [facility] WestMjgijbvhwn84-70-9912 08:21-0500Body hpdgwe363.4 cmRed Robles MD Work Phone: [facility] WestZiugtiveav74-20-3170 08:21-0500Body mass index (BMI) [Ratio]38.86 kg/m2Red Robles MD Work Phone: [facility] WestBjqpfdnqig52-76-4216 08:21-0500Body temperature 98.71 [degF]Red Robles MD Work Phone: [facility] WestDdauivgrwu48-42-5211 08:21-0500Body huqsza53.27 kgRed Robles MD Work Phone: [facility] WestUgvpkrelqo06-08-1634 08:21-0500Diastolic blood idjzhgeo43 mm[Hg]Red Robles MD Work Phone: [facility] WestRnwmgtgjpd31-53-6004 08:21-0500Heart rate76 /min Red Robles MD Work Phone: [facility] WestQukyjkjmzl06-70-5213 08:21-0500Respiratory rate20 /minRed Robles MD Work Phone: 1(072)038-[address] [place], [place] [address]Hzdsbsinei22-83-5179 08:21-2147FvO1% (BldA) [Mass fraction]98 %Red Robles MD Work Phone: [facility] WestTfsxcnjoun17-47-4552 08:21-0500Systolic blood amvsdvac726 mm[Hg]Red Robles MD Work Phone: 1(874)[phone] [place], [place] [address]Lxukbjosxp59-53-6954 13:27-0400Body .4 cmRed Robles MD Work Phone: 1(434)855-[address] [place], [place] [address]Ivxupxsfgt56-36-0981 13:27-0400Body mass index (BMI) [Ratio]39.26 kg/m2Red Robles MD Work Phone: [facility] WestXpsrskjkku65-84-0037 13:27-0400Body temperature 97.81 [degF]Red Robles MD Work Phone: [facility] WestGuvfuyosnd58-26-0683 13:27-0400Body .17 kgRed Robles MD Work Phone: 1(271)298-[address] [place], [place] [address]Bcxbdcpygx59-96-5312 13:27-0400Diastolic blood lhybdzkg00 mm[Hg]Red Robles MD Work Phone: [facility] WestOobfjrcovm43-55-6775 13:27-0400Heart rate94 /min Red Robles MD Work Phone: [facility] WestGxcuzaptgn70-51-4169 13:27-0400Respiratory rate18 /minRed Robles MD Work Phone: [facility] WestWvcncxoopv37-84-7155 13:27-9107QmT7% (BldA) [Mass fraction]98 %Red Robles MD Work Phone: [facility] WestPmynajeuyv33-70-6658 13:27-0400Systolic blood sutkjutt256 mm[Hg]Red Robles MD Work Phone: [facility] WestHsramkqhca44-46-2668 11:35-0400Body fsjnov458.4 cmArslan Maurice DO Work Phone: 1(555)[facility]-3413[facility] WestDhqroivryp24-73-7677 11:35-0400Body mass index (BMI) [Ratio]37.89 kg/m2Arslan Maurice DO Work Phone: 1(339)[facility]-8318[facility] WestWgunfiwifq48-54-3345 11:35-0400Body vvruvd59 kg Arslan Maurice DO Work Phone: 1(675)[facility]-9178[facility] WestCguzeuuqwj67-05-4183 11:35-0400Heart rate70 /min Arslan Maurice DO Work Phone: 1(808)[facility]-4676[facility] WestSjoyqvszzs41-59-7612 11:35-0400Respiratory rate16 /minArslan Maurice DO Work Phone: [place] [address]Uruqznlpcm24-32-4678 11:35-8983UxW0% (BldA) [Mass fraction]96 %Arslan Maurice DO Work Phone: [facility] WestRwapzgerqn99-77-2988 13:32-0400Body yttuvx342.4 cmRed Robles MD Work Phone: [facility] WestTjxohzocuh44-86-8295 13:32-0400Body mass index (BMI) [Ratio]37.89 kg/m2Red Robles MD Work Phone: [facility] WestEoupgjfqcu24-35-8932 13:32-0400Body temperature 97.81 [degF]Red Robles MD Work Phone: [facility] WestQblhxwyplp60-21-3980 13:32-0400Body pwcxme79 kg Red Robles MD Work Phone: [facility] WestGjjzltwiyp46-74-3490 13:32-0400Diastolic blood wbbabrct38 mm[Hg]Red Robles MD Work Phone: no[facility] HealthcareRnhbnqjaje03-65-7776 13:32-0400Heart rate83 /min Red Robles MD Work Phone: noThree [facility] HealthcareDautxthdor95-38-4112 13:32-0400Respiratory rate16 /minRed Robles MD Work Phone: no[facility] HealthcareMqmxngggny64-17-6304 13:32-2248VhV9% (BldA) [Mass fraction]98 %Red Robles MD Work Phone: noThree [facility] HealthcareEdtfnjxefb83-34-7460 13:32-0400Systolic blood pypqdxbc110 mm[Hg]Red Robles MD Work Phone: noThree [facility] HealthcareQivjflujqt37-13-8945 15:00-0400Body tduypv60.83 kgShkellymarisel Marquez Other [employer] Other 11-04-2021 15:00-0400Diastolic blood jsxxikre88 mm[Hg] Sterling Jimmy Other [employer] Other 11-04-2021 15:00-1683ZiE0% (BldA) [Mass fraction]98 % Sterling Jimmy Other [employer] Other 11-04-2021 15:00-0400Systolic blood auydiqmg640 mm[Hg] Sterling Marquez Other [employer] Other Encounters Encounter DateEncounter TypeCare ProviderFacilityStart: 11-26-2024 End: 60-11-2992lfnpotrzyyMbfg Naderer MD Work Phone: [facility] Work Phone: Start: 11-26-2024 End: 53-40-9661Imynkls encounter procedureRed Robles MD-[facility] Work Phone: Start: 08-19-2024 End: 47-63-5151Hovhey outpatient visit 25 minutesRed Robles MD Work Phone: noms CWM FMComment on above:Moderate major depression, single episode (HCC) (CMS/HCC) (Primary Dx); INDIA (generalized anxiety disorder) (CMS/HCC); Dyslipidemia ([facility]/HCC); Class 3 severe obesity due to excess calories with serious comorbidity and body mass index (BMI) of40.0 to 44.9 in adult; Neurofibromatosis, type 1 ([facility]/HCC)Start: 08-19-2024 End: 35-58-7973lcaxuodazdPYDU NADERERNot AvailableStart: 08-19-2024 End: 94-56-7763Cblrpa Debra Robles MD Work Phone: noms CWM FMStart: 08-19-2024 End: 69-89-1855Ulvebf Debra Robles MD Work Phone: noms CWM FMStart: 08-19-2024 End: 75-48-6005Wcftghhbq Result EncounterRed Robles MD Work Phone: noms External Department UnsolicitedStart: 04-22-2024 End: 65-25-8891RqdeuxBoax Naderer MD Work Phone: noms CWM FMComment on above:Gastroesophageal reflux disease without esophagitis; Class 2 severe obesity due to excess calories with serious comorbidity and body mass index (BMI) of38.0 to 38.9 in adult ([facility]/HCC)Start: 03-24-2024 End: 65-76-3707Bpcplx Debra Robles MD Work Phone: noms CWM FMStart: 03-24-2024 End: 30-96-7172Auyjmgerasmo Robles MD Work Phone: noms CWM FMStart: 03-24-2024 End: 88-75-3662Ugcpnm outpatient visit 25 minutesRed Robles MD Work Phone: noms CWM FMComment on above:Moderate major depression, single episode (HCC) (CMS/HCC) (Primary Dx); INDIA (generalized anxiety disorder) (CMS/HCC); Dyslipidemia (CMS/HCC); Class 2 severe obesity due to excess calories with serious comorbidity and body mass index (BMI) of38.0 to 38.9 in adult (CMS/HCC); Encounter for long-term current use of medication; Chronic pain of both shouldersStart: 03-24-2024 End: 65-81-4206natyqjonigXZZJ NADERERNot AvailableStart: 12-26-2023 End: 08-55-7844Alqddhelh Result EncounterRed Robles MD Work Phone: noms External Department UnsolicitedStart: 12-26-2023 End: 40-31-2220Wlamedhak Result EncounterRed Robles MD Work Phone: noms External Department UnsolicitedStart: 12-26-2023 End: 86-11-5519Zlrdtl OnlyRed Robles MD Work Phone: NOUO CWM FMComment on above:Dyslipidemia (CMS/HCC) (Primary Dx)Start: 12-24-2023 End: 67-89-4678Yftcqk Debra Robles MD Work Phone: NOFP CWM FMStart: 12-24-2023 End: 32-54-9332Dxwjyr Debra Robles MD Work Phone: NOMS CWM FMStart: 12-24-2023 End: 76-33-7138Mkjsol outpatient visit 15 minutesRed Robles MD Work Phone: NOQZ CWM FMComment on above:Moderate major depression, single episode (HCC) (CMS/HCC) (Primary Dx); INDIA (generalized anxiety disorder) (CMS/HCC); Annual physical exam; Gastroesophageal reflux disease without esophagitis; Obesity (BMI 30-39.9); Body mass index (BMI) 37.0-37.9, adultStart: 12-24-2023 End: 20-42-0768Uxtbxvw encounter Krish Robles MD Work Phone: noms HealthcareStart: 12-24-2023 End: 36-19-1690upoawbmfrbPAIQ NADERERNot AvailableStart: 12-18-2023 End: 69-27-4037xedtljfvtjPbal [facility] Work Phone: Start: 12-18-2023 End: 98-31-7165Itudvmeg ReferredDO Arslanheri Maurice Work Phone: [facility]-LAB Path Spec Alyse HospStart: 12-10-2023 End: 31-39-5996Xrzajntiu Result EncounterKyle Josafat DO Other Phone: noms External Department UnsolicitedStart: 12-10-2023 End: 09-83-3867Slzyoyvan Result EncounterKyle Josafat DO Other Phone: noms External Department UnsolicitedStart: 11-26-2023 End: 56-10-0824Bewtdd flowsheetKyle Josafat DO Work Phone: NOMS BW GENSStart: 11-26-2023 End: 61-67-5227Urqlud flowsheetKyle Josafat DO Work Phone: NOM[facility] BW GENSStart: 11-26-2023 End: 60-36-2270Pnouzn outpatient new 45 minutesKyle Josafat DO Work Phone: NOMS BW GENSComment on above:Dysphagia, unspecified type (Primary Dx)Start: 11-26-2023 End: 97-56-0762hjhrjhnoccNCMJ JOSAFATNot AvailableStart: 11-19-2023 End: 00-94-8488Ythcuh Debra Robles MD Work Phone: noms CWM FMStart: 11-19-2023 End: 67-19-1464Ulzvfn Debra Robles MD Work Phone: [facility] FMStart: 11-19-2023 End: 14-94-0406Noztgu outpatient visit 25 minutesRed Robles MD Work Phone: noms [facility] FMComment on above:Esophageal dysphagia (Primary Dx); Gastroesophageal reflux disease without esophagitis; Moderate major depression, single episode (HCC) (CMS/HCC); INDIA (generalized anxiety disorder) (CMS/HCC); Neurofibromatosis, type 1 (CMS/HCC)Start: 11-19-2023 End: 97-50-0222iezvlvpmraLBNY NADERERNot AvailableStart: 93-41-0782Tolzi abstractingTawana Kaye MD Work Phone: noms ENT NORWALKStart: 01-13-2023 End: 03-39-1202Iecolsihu department patient visitJOMISSOURI B[facility] HospitalStart: 04-03-2022 End: 15-25-5532rehdhnmhwxJCVEMC H FAWWADFacility:D5Jzfqf: 03-27-2022 End: 46-94-8229uwzyhlsjsfIE MARC A NADERERFacility:I7Ctran: 01-13-2021 End: 83-86-4929pllzmtkdytQfgvkb Zaky Other [facility] [employer] Other Start: 55-62-2524Oslcxi outpatient visit 25 minutes Sterling Hernandez Pain Management Procedures DateProcedureProcedure DetailPerforming ClinicianStart: 23-21-1259BDT LIPID PROFILE (FASTING)Red Robles MD Work Phone: Start: 05-73-8951SOKC LIVER PANELRed Robles MD Work Phone: Start: 55-73-0298VAY CBC WITH AUTO DIFFRed Robles MD Work Phone: Start: 74-84-1511NJ UPPER GI W AIR*Arslanheri Maurice DO Other Phone: Start: 14-14-7761XK Gastrointestinal tract upper Views W water soluble contrast POKyle Josafat DO Other Phone: Start: 08-14-6684GM CINERADIOGRAPHYArslan Maurice DO Other Phone: Plan of Treatment DateCare ActivityDetailAuthorStart: 51-85-9802Kewtgvsdh vaccinationInfluenza Vaccine (Season Ended)NOM HealthcareStart: 10-23-2024 End: 33-15-3539Ioorvnc encounter ycphzktyn98/14/2025 1:45 PM EDT Office Visit [facility] [address] [place] [address] Red Robles MD [address] [place] [address] [facility] FMStart: 08-19-2024 End: 12-20-6362Allhyki encounter fikgokycv17/10/2025 2:30 PM EDT Office Visit [facility] [address] [place] [address] Red Robles MD [address] [place] [address] ArrivedNOCEDAR [facility]ID[facility] FMComment on above:ArrivedStart: 04-28-2024 End: 50-49-3507Xfmijhm encounter /17/2025 2:00 PM EST Office Visit [facility] [address] [place] [address] Red Robles MD [address] [place] [address] [facility] FMStart: 03-24-2024 End: 99-76-0170Rsvdlnl function 2000 panel - Serum or PlasmaHepatic function panel Lab Routine Encounter for long-term current use of medication Expected: 03/24/2024 (Approximate), Expires: 03/24/2025NOMT HealthcareComment on above: Expected: 03/24/2024 (Approximate), Expires: 03/24/2025Start: 03-24-2024 End: 03-72-0313Uempq 1996 panel - Serum or PlasmaLipid panel Lab Routine Dyslipidemia ([facility]/HCC) Expected: 03/24/2024 (Approximate), Expires: 03/24/2025 [facility] Work Phone: Comment on above:Expected: 03/24/2024 (Approximate), Expires: 03/24/2025Start: 03-24-2024 End: 04-30-0228Qicpafy encounter liffibkya71/13/2025 8:15 AM EST [facility] [address] [place] [address] Red Robles MD [address] [place] [address] ArrivedNOMS [facility] FMComment on above:ArrivedStart: 02-04-2024 End: 28-15-4275Cdenqdt encounter xkcwetsda77/25/2024 1:45 PM EST [facility] [address] [place] [address] Red Robles MD [address] [place] [address] NOMS CW FMStart: 12-24-2023 End: 98-22-0149Akrnr metabolic 1998 panel - Serum or PlasmaBasic metabolic panel Lab Routine Annual physical exam Expected: 12/24/2023 (Approximate), Expires: 12/23/2024NOMS HealthcareComment on above:Expected: 12/24/2023 (Approximate), Expires: 12/23/2024Start: 12-24-2023 End: 82-77-3042ZLJ W Auto Differential panel - BloodCBC and differential Lab Routine Annual physical exam Expected: 12/24/2023 (Approximate), Expires: 1 NOMS HealthcareComment on above:Expected: 12/24/2023 (Approximate), Expires: 12/23/2024Start: 12-24-2023 End: 79-30-7152Cotlsrymia A1c/Hemoglobin.total in BloodHemoglobin A1c Lab Routine Annual physical exam Expected: 12/24/2023 (Approximate), Expires: 12/23/2024NO Healthcare Work Phone: Comment on above:Expected: 12/24/2023 (Approximate), Expires: 12/23/2024Start: 12-24-2023 End: 52-48-2533Dzvjbak function 2000 panel - Serum or PlasmaHepatic function panel Lab Routine Annual physical exam Expected: 12/24/2023 (Approximate), Expires: 12/23/2024MT HealthcareComment on above:Expected: 12/24/2023 (Approximate), Expires: 12/23/2024Start: 12-24-2023 End: 85-03-8540Uwpdy 1996 panel - Serum or PlasmaLipid panel Lab Routine Annual physical exam Expected: 12/24/2023 (Approximate), Expires: 12/23/2024NOMT HealthcareComment on above:Expected: 12/24/2023 (Approximate), Expires: 12/23/2024Start: 12-24-2023 End: 07-91-5417Blwkxhzp specific Ag [Mass/volume] in Serum or PlasmaPSA Lab Routine Annual physical exam Expected: 12/24/2023 (Approximate), Expires: 12/23/2024MT HealthcareComment on above:Expected: 12/24/2023 (Approximate), Expires: 12/23/2024Start: 12-24-2023 End: 32-55-9311Ugeubmtkfai [Units/volume] in Serum or PlasmaTSH Lab Routine Annual physical exam Expected: 12/24/2023 (Approximate), Expires: 12/23/2024NOMT HealthcareComment on above:Expected: 12/24/2023 (Approximate), Expires: 12/23/2024Start: 12-24-2023 End: 89-51-7975Wggcfpt encounter procedureNOMS CWM FMComment on above:Arrived Start: 10-37-0867ArfhmzqacTrinity Health System West Campustart: 11-26-2023 End: 27-75-0605QH Upper gastrointestinal tract and Small bowel Single view W contrast POFL upper GI double contrast w KUB Imaging Routine Dysphagia, unspecified type Expected: 11/26/2023,Expires: 11/25/2024[facility] Work Phone: comment on above:Expected: 11/26/2023, Expires: 11/25/2024Start: 11-26-2023 End: 58-99-9591Jpizmob encounter gjboubjjd30/16/2024 11:15 AM EDT Office Visit [facility] [address] [place] [address] Arslan Maurice DO [address] [place] [address] ArrivedNOMS [facility] GENSComment on above: ArrivedStart: 11-19-2023 End: 16-28-8151Nrhpjjj encounter lfaqfecog03/09/2024 1:30 PM EDT Office Visit [facility] FM [address] [place] [address] Red Robles MD [address] [place] [address] ArrivedNOMS [facility] FMComment on above:ArrivedStart: 40-56-9916Vyeuvpjxp vaccinationInfluenza Vaccine (#1)NOMS HealthcareStart: 04-16-2023 End: 89-27-4822Azxiwwbv SupportNOMS AUDStart: 70-80-9850Raboqzwnu vaccination Influenza Vaccine (#1)[facility] Payers DatePayer CategoryPayerPolicy [id number]-fqx [id number] [facility] ShieldBS Member Subscriber Plan / Payer (Effective 2018-Present) Name: Doc Jonas Relation to Subscriber: Self Name: Doc Jonas ID: Not on file Type: Not on file Address: [address] [place] [id number] UnknownBCBS BCBS [id number] 2018-Present [phone] [address] [place] [id number] [id number] 2..[id number] 2..[id number] 2..1.142971.3.57[id number] 2..1.955744.3.57[id number] 2..1.086669.3.579.2.[id number] 2.0.1.926597.3.579.2.207226-12-3252Lpobwvf2009358 2..1.732325.3.579.2.080728-70-0831Wwbyfll0061567 2..1.518690.3.579.2.802712-90-5702[employer] [id number] 2..1.173231.92Cnrjfxn75573086 2..1.236749.3.579.2.531 Social History DateTypeDetailFacilityStart: 02-12-2023 End: 72-07-8313Xyi Assigned At BirthNOMT HealthcareStart: 02-06-2023 End: 00-76-9894Watibey smoking status NHISNever smoked tobaccoNOMS Healthcare Start: 59-11-4890Ssmtpvp use and exposureSmokeless tobacco non-userNOMS HealthcareStart: 02-12-2023 End: 57-05-0958Yohnpxi intakeLifetime non-drinker (finding)NOMS HealthcareStart: 02-12-2023 End: 11-95-7346Tlejiwx of Social functionNOMS HealthcareStart: 10-17-2726Vuugzmv Commentcaffeine intake: 1-2 cups per dayNOMS HealthcareStart: 41-91-2446Csj Assigned At BirthNot on fileNOMT HealthcareStart: 23-88-1061Kxs [facility]etart: 58-59-5277Rkg often do you need to have someone help you when you read instructions, pamphlets, or other writt en material from your doctor or pharmacy [SILS]NeverNOMS HealthcareDo you belong to any clubs or organizations such as muslim groups, unions, fraternal or athletic groups, or school groups?YesNOMS HealthcareAre you now , , , , never or living with a partner?MarriedNOMS HealthcareHow often to you have a drink containing alcohol?NeverNOMS Healthcare How hard is it for you to pay for the very basics like food, housing, medical care, and heatingNot very hardNOMS HealthcareDo you feel stress - tense, restless, nervous, or anxious, or unable to sleep at night because yourmind is troubled all the time - these days [OSQ]To some extentNOMS Healthcare(I/We) worried whether (my/our) food would run out before (I/we) got money to buy more. Sometimes trueNOMS HealthcareIn the past 12 months, was there a time when you were not able to pay the mortgage or rent on time?NoNOMS HealthcareSexMale (finding)[facility] Functional Status BnedEocjtpovdgPvehjaQsjmtlng05-90-0712Nwdvh score [AUDIT-C]0 12/23/2023 1:37 PM EDT [facility] HospitalHqhglyibqf62-39-6921Yeu often do you have a drink containing alcohol?Never 12/23/2023 1:37 PM EDT [facility], Generic NeverSaint Joseph Hospital WestOqcsqhdmhy10-58-5586Qofbzsmabx statusPatient does not drink 12/23/2023 1:37 PM EDT [facility], Generic Patient does not drinkSaint Joseph Hospital WestGcxivqyfhf39-36-5802Rtu often do you have 6 or more drinks on 1 occasion?Never 12/23/2023 1:37 PM EDT [facility], [facility] Clinical Notes 01-13-2021 to 11-10-2024 Note Date & HluxPvpkIsbpqeub46-83-4692 Evaluation note* Diagnosis Onset Date Resolution Status Admit Date Class 3 severe obesity due to excess rhett ories with serious comorbidity and acuteSept2024 8:58amEncounter for long-term (current) use of medicationsacuteSept2024 8:58amFatigueacuteSept2024 8:58amGAD (generalized anxiety disorder)acuteSept2024 8:58amGERD without esophagitisacuteSept2024 8:58amModerate major depression, single episodeacuteSept2024 8:58amNeurofibromatosis, type 1acute November 26, 2024 8:58am [facility] Work Phone: [phone] 268-180706-10-2025 History of Present illness Narrative* Red Robles [...] PM EDTAssociated Problem(s): INDIA (generalized anxiety disorder) ([facility]) Symptoms worse and increase prozac. Warned will take 2-3 weeks to notice improvement in mood. * Red Robles MD - 08/19/2024 3:27 PM EDTAssociated Problem(s): Dyslipidemia ([facility]) Repeat labs. * Red Robles MD - [...] 2.5 MG/0.5ML solution auto-injector documented in this encounterSaint Joseph Hospital WestXhssnnycci21-06-7505 Telephone encounter Note* Telephone Encounter - Red Robles MD - 04/22/2024 6:26 PM EST [facility] WestMnkuacweso82-34-6251 Miscellaneous Notes* Telephone Encounter - Red Robles MD - 04/22/2024 6:26 PM EST documented in this encounterSaint Joseph Hospital WestLtaqkxecdg32-40-9781 History of Present illness Narrative* Red Robles [...] AM ESTAssociated Problem(s): INDIA (generalized anxiety disorder) ([facility]/HCC) Symptoms improved with prozac but still present [...] Problem List Items Addressed This Visit Dyslipidemia ([facility]CC) Relevant Orders Lipid panel Moderate major depression, single episode (HCC) ([facility]) - Primary Symptoms improved with prozac but still present and increase dose. Relevant Medications FLUoxetine (PROzac) 40 MG capsule INDIA (generalized anxiety disorder) ([facility]) Symptoms improved with prozac but still present and increase dose. Use hydroxyzine PRN. Class 2 severe obesity due to excess calories with serious comorbidity and body mass index (BMI) of38.0 to 38.9 in adult ([facility]) Patient overweight and difficult time losing weight. [...] exercises. Use motrin PRN. documented in this encounterSaint Joseph Hospital WestHgmvuqpvrk29-55-9195 History of Present illness Narrative* Red Robles MD - 12/24/2023 2:07 PM EDTAssociated Problem(s): Obesity (BMI 30-39.9) Weight loss indicated. * Red Robles MD - 12/24/2023 2:06 PM EDTAssociated Problem(s): Gastroesophageal reflux disease without esophagitis Follow with surgeon. * Red Robles MD - 12/24/2023 2:05 PM EDTAssociated Problem(s): INDIA (generalized anxiety disorder) ([facility]/HCC) Continued symptoms and minimal improvement with zoloft and stop. Try prozac and warned will take 2-3 weeks to notice improvement in mood. Use hydroxyzine PRN. * Red Robles MD - 12/24/2023 2:05 PM EDTAssociated Problem(s): Moderate major depression, single episode (HCC) ([facility]/HCC) Continued symptoms and minimal improvement with zoloft [...] Lipid panel PSA TSH documented in this encounterSaint Joseph Hospital WestNwlwhzjgbz56-36-4959 History of Present illness Narrative* Arslan Maurice [...] hearing loss type, unspecified laterality Heartburn Hypercholesterolemia ([facility]/HCC) MRSA (methicillin resistant Staphylococcus aureus) hospitalized years ago Neurofibromatosis ([facility]) Other chronic pain 02/06/2023 Social History Tobacco Use Smoking status: Never Smokeless tobacco: Never Substance Use Topics Alcohol use: Never Comment: caffeine intake: 1-2 cups per day Drug use: Never Past Surgical History: Procedure Laterality Date VASECTOMY Family History Problem Relation Name Age of Onset Hypertension Mother Jackie jonas Hypertension Father Doc Jonas Heart failure Father Doc Jonas Diabetes Father Doc Jonas COPD Father Doc Jonas Allergies Allergen Reactions Codeine Nausea And Vomiting Other Reaction(s): nausea and vomiting Past Surgical History: Procedure Laterality Date VASECTOMY Tobacco Use: Low Risk (11/26/2023) Patient History Smoking Tobacco Use: Never Smokeless Tobacco Use: Never Passive Exposure: Not on file Alcohol Use: Not At Risk (01/13/2023) Received from [facility] AUDIT-C Frequency of Alcohol Consumption: Never [...] convenience. Follow up UGI imaging. Thank you, K Gerson Maurice DO documented in this encounterSaint Joseph Hospital WestOluuhoadmz41-55-4896 History of Present illness Narrative* Red Robles [...] (Atarax) 25 MG tablet documented in this encounterSaint Joseph Hospital WestXmafoedani55-43-2055 Evaluation note* Encounter Date Diagnosis Assessment Notes [...] He also voices complaints of left shoulder pain.Anatomy of spine discussed in detail with patient in regards to patients condition. Patient is a candidate for a confirmatory bilateral lumbar facet medial branch nerve block under fluoroscopic guidance. Risks and benefits of procedure explained to patient; patient verbalizes understanding. Jan,eft shoulder pain (ICD-10 - M25.512) Recent MRI of the left shoulder shows mild arthritis. If his pain persists, we can consider proceeding with a shoulder & AC joint injection under fluoroscopic guidance. Jan,hronic pain (ICD-10 - G89.29) Continue medications as prescribed Charlie App Other Evaluation noteNo assessment information available [facility] Work Phone: Evaluation note* Diagnosis Esophageal dysphagia- Primary Dysphagia, pharyngoesophageal phase Gastroesophageal reflux disease without esophagitis Esophageal reflux Moderate major depression, single episode (HCC) (CMS/HCC) Major depressive disorder, single episode, moderate INDIA (generalized anxiety disorder) ([facility]/H[facility]) Generalized anxiety disorder Neurofibromatosis, type 1 (CMS/HCC) Neurofibromatosis, 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, single episode (HCC) ([facility]/HCC)- Primary Major depressive disorder, single episode, moderate INDIA (generalized anxiety disorder) ([facility]/HCC) Generalized anxiety disorder Annual physical exam Routine general medical examination at a health care facility Gastroesophageal reflux disease without esophagitis Esophageal reflux Obesity (BMI 30-39.9) Body mass index (BMI) 37.0-37.9, adult documented in this encounter [facility] HealthcareEvaluation note* Diagnosis Esophageal dysphagia- Primary Dysphagia, pharyngoesophageal phase Gastroesophageal reflux disease without esophagitis Esophageal reflux Moderate major depression, single episode (HCC) (CMS/HCC) Major depressive disorder, single episode, moderate INDIA (generalized anxiety disorder) ([facility]/HCC) Generalized anxiety disorder Neurofibromatosis, type 1 ([facility]/HCC) Neurofibromatosis, 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, single episode (HCC) ([facility]/HCC)- Primary Major depressive disorder, single episode, moderate INDIA (generalized anxiety disorder) ([facility]) Generalized anxiety disorder Annual physical exam Routine general medical examination at a health care facility Gastroesophageal reflux disease without esophagitis Esophageal reflux Obesity (BMI 30-39.9) Body mass index (BMI) 37.0-37.9, adult Dyslipidemia (CMS/HCC)- Primary Other and unspecified hyperlipidemia documented in this encounter [facility] HealthcareEvaluation note* Diagnosis Dysphagia, unspecified type- Primary documented in this encounter [facility] HealthcareEvaluation note* Diagnosis Esophageal dysphagia- Primary Dysphagia, pharyngoesophageal phase Gastroesophageal reflux disease without esophagitis Esophageal reflux Moderate major depression, single episode (HCC) ([facility]) Major depressive disorder, single episode, moderate INDIA (generalized anxiety disorder) ([facility]) Generalized anxiety disorder Neurofibromatosis, type 1 ([facility]) Neurofibromatosis, Type 1 (von Recklinghausen's disease) documented in this encounter [facility] HealthcareEvaluation note* Diagnosis Esophageal dysphagia- Primary Dysphagia, pharyngoesophageal phase Gastroesophageal reflux disease without esophagitis Esophageal reflux Moderate major depression, single episode (HCC) ([facility]) Major depressive disorder, single episode, moderate INDIA (generalized anxiety disorder) ([facility]) Generalized anxiety disorder Neurofibromatosis, type 1 ([facility]) Neurofibromatosis, 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, single episode (HCC) ([facility])- Primary Major depressive disorder, single episode, moderate INDIA (generalized anxiety disorder) ([facility]) Generalized anxiety disorder Annual physical exam Routine general medical examination at a [facility] Gastroesophageal reflux disease without esophagitis Esophageal reflux Obesity (BMI 30-39.9) Body mass index (BMI) 37.0-37.9, adult Moderate major depression, single episode (HCC) ([facility])- Primary Major depressive disorder, single episode, moderate INDIA (generalized anxiety disorder) ([facility]) Generalized anxiety disorder Dyslipidemia ([facility]) Other and unspecified hyperlipidemia Class 2 severe obesity due to excess calories with serious comorbidity and body mass index (BMI) of38.0 to 38.9 in adult ([facility]) Encounter for long-term current use of medication Chronic pain of both shoulders documented in this encounter [facility] HealthcareEvaluation note* Diagnosis Esophageal dysphagia- Primary Dysphagia, pharyngoesophageal phase Gastroesophageal reflux disease without esophagitis Esophageal reflux Moderate major depression, single episode (HCC) ([facility]) Major depressive disorder, single episode, moderate INDIA (generalized anxiety disorder) ([facility]) Generalized anxiety disorder Neurofibromatosis, type 1 ([facility]) Neurofibromatosis, 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, single episode (HCC) ([facility])- Primary Major depressive disorder, single episode, moderate INDIA (generalized anxiety disorder) ([facility]) Generalized anxiety disorder Annual physical exam Routine general medical examination at a health care facility Gastroesophageal reflux disease without esophagitis Esophageal reflux Obesity (BMI 30-39.9) Body mass index (BMI) 37.0-37.9, adult Moderate major depression, single episode ([place]CC) [place] Primary Major depressive disorder, single episode, moderate [place] (generalized anxiety disorder) [place] Generalized anxiety disorder Dyslipidemia [place] Other and unspecified hyperlipidemia Class 2 severe obesity due to excess calories with serious comorbidity and body mass index (BMI) of38.0 to 38.9 in adult ([facility] Encounter for long-term current use of medication Chronic pain of both shoulders Gastroesophageal reflux disease without esophagitis Esophageal reflux Class 2 severe obesity due to excess calories with serious comorbidity and body mass index (BMI) of38.0 to 38.9 in adult ([facility] documented in this encounter [facility] HealthcareEvaluation note* Diagnosis Esophageal dysphagia- Primary Dysphagia, pharyngoesophageal phase Gastroesophageal reflux disease without esophagitis Esophageal reflux Moderate major depression, single episode (HCC) ([facility] Major depressive disorder, single episode, moderate INDIA (generalized anxiety disorder) [place] Generalized anxiety disorder Neurofibromatosis, type 1 ([facility] Neurofibromatosis, 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, single episode (HCC) ([facility] Primary Major depressive disorder, single episode, moderate INDIA (generalized anxiety disorder) ([facility]) Generalized anxiety disorder Annual physical exam Routine general medical examination at a health care facility Gastroesophageal reflux disease without esophagitis Esophageal reflux Obesity (BMI 30-39.9) Body mass index (BMI) 37.0-37.9, adult Moderate major depression, single episode (HCC) ([facility] Primary Major depressive disorder, single episode, moderate INDIA (generalized anxiety disorder) [place] Generalized anxiety disorder Dyslipidemia ([facility] Other and unspecified hyperlipidemia Class 2 severe obesity due to excess calories with serious comorbidity and body mass index (BMI) of38.0 to 38.9 in adult ([facility] Encounter for long-term current use of medication Chronic pain of both shoulders Moderate major depression, single episode (HCC) ([facility] Primary Major depressive disorder, single episode, moderate INDIA (generalized anxiety disorder) ([facility] Generalized anxiety disorder Dyslipidemia (CMS/HCC) Other and unspecified hyperlipidemia Class 3 severe obesity due to excess calories with serious comorbidity and body mass index (BMI) of40.0 to 44.9 in adult Neurofibromatosis, type 1 (CMS/HCC) Neurofibromatosis, Type 1 (von Recklinghausen's disease) documented in this encounter [facility] HealthcareHistory general Narrative - Reported* Type Description Date Medical History neurofibromatosis type 1 Medical Historyneuropathy bue and jasmin Charlie App Other Reason for referral (narrative)* Consultation (Routine) - Pending ReviewSpecialtyDiagnoses / ProceduresReferred By Contact Referred To ContactGeneral Surgery Diagnoses Esophageal dysphagia Gastroesophageal reflux disease without esophagitis Procedures MI OFFICE/OUTPATIENT [facility] 60 MINUTES Red Robles MD [address] [place] [address] Arslan Maurice DO [address] [facility] [address] [place] [address] Referral IDStatusReasonStart DateExpiration DateVisits RequestedVisits [id number] Review Specialty Services Required / REJI SaundersRedevaughn for referral (narrative)No reason for referral information availablePromedica Defiance Regional Hospital Work Phone: Summary Purpose Family History [...] 2024 8:58am INDIA (generalized anxiety disorder) Carroll ren 2024 8:58am GERD without esophagitis Nya 17th, 2025 8:58am Moderate major depression, single episod e November 26, 2024 8:58am Neurofibromatosis, type 1 November 8:58am Additional Source Comments (unrecognized sect ion and content) No Status Records FoundNo Status Records FoundNo Status Records FoundNo Status Records FoundNo Status Records FoundNo Status Records Found INFORMATION SOURCE (unrecogn ized section and content) DATE CREATED AUTHOR 05/13/2019 [facility] DATE CREATED AUTHOR AUTHOR'S ORGANIZ ATION 04/23/2020 [facility] DATE CREATED AUTHOR AUTHOR'S ORGANIZ ATION 04/08/[address] [facility] DATE CREATED AUTHOR AUTHOR'S ORGANIZ ATION 01/14/2023 [facility] DATE CREATED AUTHOR AUTHOR'S ORGANIZ ATION 12/26/2023 [facility] DATE CREATED AUTHOR AUTHOR'S ORGANIZ ATION 08/21/2024 [facility] EPIC REASON FOR VISIT (unrecogniz ed section and content) ReasonCommentsFollow-up1 mReasonCommentsGERDPt presents today for an egd consult. He states that roughly 6 months ago when he would eat it would feel like food would get stuck in his throat. He states that he gets really bad acid reflux as well and he is currently Protonix and he states that it does help. ReasonCommentsChokingFood feels like it gets stuck when swallowing.Heartburn AnxietyReasonCommentsWeight LossLooking for something tohelp lose weightShoulder PainReasonCommentsMed Change RequestReasonCommentsFollow-upCheck up Care Teams (unrecognized sec tion and content) Team MemberRelationshipSpecialtyStart DateEnd Date Red Robles MD PCP - GeneralFamily Vdwxsfap47/4/23 Team Status: Inactive Member Role Status Dates Arslan Maurice DO Attending Provider Active Star t: December 18, 2023 End: December 18, 2023Team MemberRelationshipSpecialtyStart DateEnd Date Red Robles MD [address] [place] [address] PCP - GeneralFamily Medicine11/19/23Team MemberRelationshipSpecialtyStart DateEnd Date Red Robles MD [address] [place] [address] PCP - GeneralFamily Medicine11/19/23Team MemberRelationshipSpecialtyStart DateEnd Date Red Robles MD [address] [place] [address] PCP - GeneralFamily Medicine11/19/23Team MemberRelationshipSpecialtyStart DateEnd Date Red Robles MD [address] [place] [address] PCP - GeneralFamily Medicine11/19/23Team MemberRelationshipSpecialtyStart DateEnd Date Red Robles MD [address] [place] [address] PCP - GeneralFamily Medicine11/19/23Team MemberRelationshipSpecialtyStart DateEnd Date Red Robles MD [address] [place] [address] PCP - GeneralFamily Medicine11/19/23Team MemberRelationshipSpecialtyStart DateEnd Date Red Robles MD [address] [place] [address] PCP - GeneralFamily Medicine11/19/23Team MemberRelationshipSpecialtyStart DateEnd Date Red Robles MD [address] [place] [address] PCP - GeneralFamily Medicine11/19/23Team MemberRelationshipSpecialtyStart DateEnd Date Red Robles MD [address] [place] [address] PCP - GeneralFamily Medicine11/19/23 Red Robles MD [address] [place] [address] PCP - [place] Bcsfllkzkr99/1/24Team MemberRelationshipSpecialtyStart DateEnd Date Red Robles MD [address] [place] [address] PCP - GeneralFamily Medicine11/19/23 Red Robles MD [address] [place] [address] PCP - [place] Eykvhbbezo28/1/24Team MemberRelationshipSpecialtyStart DateEnd Date Red Robles MD [address] [place] [address] PCP - GeneralFamily Medicine11/19/23 Red Robles MD [address] [place] [address] PCP - [place] Nrrdxkrkhw75/1/24Team MemberRelationshipSpecialtyStart DateEnd Date Red Robles MD [address] [place] [address] PCP - [facility]11/19/23Team MemberRelationshipSpecialtyStart DateEnd Date Red Robles MD [address] [place] [address] [facility]11/19/23Team MemberRelationshipSpecialtyStart DateEnd Date Red Robles MD [address] [place] [address] [facility]11/19/23 Team Status: Active Member Role Status Dates Red Robles MD Primary Care Provider Active Team Status: Inactive Member Role Status Dates Red Rolbes MD Primary Care Provider Active S tart: November 26, 2024 End: November 26, 2024[facility] SYDNEE Roblesttending ProviderActiveStart: November 26, 2024 End: November 26, 2024Team MemberRelationshipSpecialtyStart DateEnd Date Red Robles MD [facility]11/19/23 Red Robles MD [address] [place] [address] PCP - [facility] Goals (unrecognized section and content) Goals may [...] BE BASED ON THE PRIMARY CLINICAL RECORDS. [facility]. provides no warranty or guarantee of the accuracy or completeness of information in this document.
--- NOTE | 2025-01-14 14:05 | XR_ITS ---
The [address] [address] Patient Name: ISIDRA LERMA MRN: [id number] date: 1985 Sex: M Assigned Patient Location: [facility] Current Patient Location: Accession/Order Number: [id number] Exam Date: 01/14/2025 13:55 Report Date: 01/15/2025 08:26 At the request of: RAFAEL ROBLES MD Procedure: XR knee RALF 4V BILATERAL KNEES - 4 views each COMPARISON: None CLINICAL DATA: Bilateral knee pain and grinding, greater on the right. AP, lateral, internal oblique and patellar views were obtained. No acute fractures or dislocation are identified. No patellar subluxation is seen. There is no disproportionate joint space narrowing. There is slight squaring off of the articular margins. No knee effusions or focal soft tissue swelling are seen. XR/XR knee RALF 4V IMPRESSION: NO ACUTE BONY FINDINGS. Impression dictated by: Jackie Nichols M.D. 01/15/2025 8:26 AM Dictation Location: [place] [address] Electronically authenticated by: [id number] Date: 01/15/2025 08:26
== END 2025-01-14 13:41 | disposition home or self-care (01) ==
LOC: RAD 13:42
PROVIDERS: PCP Family Medicine; Visit Provider Family Medicine
DX: M25.561 Pain in right knee (principal); M25.562 Pain in left knee
CPT/HCPCS: 73564